=== PATIENT | male | born 1940 | race Caucasian/White ===

== ENCOUNTER 2016-10-27 07:00 | Inpatient (IN) ==
--- NOTE | 2016-10-24 09:37 | Cardiothoracic History & Phys ---
History of Present Illness Chief complaint: Chest pain History of present illness: Mr. Urias is a 76 year old male who came to Dr. Demarco because of symptoms of chest discomfort and shortness of breath associated with nausea and diaphoresis. The patient does have a prior history of myocardial infarction in the remote past but had not had any recurrent chest pain until this past week. He was admitted for outpatient catheterization which demonstrated severe coronary disease and he was referred for bypass surgery. He is to be admitted for that purpose on 10/27/2016 for coronary bypass surgery on 10/28/2016. Past medical history: Patient has had previous prostate surgery and does have a history of gastroesophageal reflux symptoms. The patient has never smoked cigarettes and does not drink significant amounts of alcohol. Review of systems and family history are noncontributory to the present illness. Physical examination: Patient is well-developed well-nourished white man in no acute distress. Examination of head eyes ears nose and throat show the pupils are equal react to light and extraocular motions are intact. Oropharynx is benign. Examination of chest shows that it is clear to percussion auscultation. Examination of heart shows regular sinus rhythm and there are no murmurs. Examination the abdomen is soft nontender and there are no masses or organomegaly. Examination of the extremities shows no cyanosis or edema. Neurological examination is grossly within normal limits. Assessment: Coronary artery disease. Plan: Coronary bypass grafting 10/28/2016. Home Medications Medication Instructions Recorded Confirmed Type Tramadol HCl [Tramadol Tab] 50 mg PO QID PRN 07/20/16 10/13/16 History amLODIPine [Norvasc] 10 mg PO DAILY 07/20/16 10/13/16 History Aspirin 325 mg PO AC BREAKFAST #100 tablet 10/13/16 Rx Allergies Allergy/AdvReac Type Severity Reaction Status Date / Time No Known Allergies Allergy Verified 10/13/16 09:45 Medical,Surgical,& Family Hx - Medical History Cardio: History of: CAD, Hypertension, [place] Neurology: No history of: Seizures Genitourinary: History of: Genitourinary Cancer (prostate) - Surgical History Reproductive Surgeries: Surgical HX of;: Prostate Surgery - Social History Smoking Status: Former smoker
[~2016-10-27 07:00] MED LIST: DEXTROSE 50% 25 GM/50 ML SYRINGE IV PRN; DEXTROSE 50% 25 GM/50 ML VIAL IV PRN; GLUCAGON 1 MG VIAL IM PRN; traMADol 50 MG TABLET PO PRN
--- NOTE | 2016-10-27 09:34 | EKG Report ---
Stationary ECG Study [facility] Test Date: 10/27/2016 9:25:22 AM Pat Name: HELLEN LION Department: Room: 275 Gender: M Tread Cutter: IVONNE : 1940 Requested by: Brad Navarrete Order Number: [id number] Jaimie MD: KEILY HOYT Intervals [place] Rate: 58 P: 64 GA: 187 QRS: -26 QRSD: 85 T: 56 QT: 401 QTc: 397 Interpretive Statements SINUS RHYTHM LEFT AXIS DEVIATION POSSIBLE RIGHT VENTRICULAR CONDUCTION DELAY Electronically Signed On 10-28-16 07:33:00 CDT by KEILY HOYT [email or web address]
[2016-10-27 09:52] LABS: Basophils # 0.1 10*3/uL (0.0-0.2); Basophils % 1.2 % (0.0-0.8); Eosinophils # 0.6 10*3/uL (0.0-0.87); Eosinophils % 8.5 % (0.00-10.9); Hematocrit 37.5 VOL% (42.0-52.0); Hemoglobin 12.9 GM/DL (14.0-18.0); Immature Granulocytes % 0.3 %; Immature Granulocytes Absolute 0.02 #; Lymphocytes # 1.6 10*3/uL (1.4-4.0); Lymphocytes % 21.8 % (21.2-54.2); Mean Corpuscular HGB Conc 34.4 GM/DL (32-36); Mean Corpuscular Hemoglobin 31 PG (27-34); Mean Corpuscular Volume 91.2 FL (87-102); Monocytes # 0.8 10*3/uL (0.11-0.8); Monocytes % 11.2 % (1.7-12.7); Neutrophils # 4.2 10*3/uL (1.4-7.4); Platelet Count 210 T/CUMM (130-400); Red Blood Count 4.11 MC/CUMM (3.8-5.5); Red Cell Distribution Width 14.7 % (9.3-17.3); White Blood Count 7.4 T/CUMM (4-12)
[2016-10-27 10:31] LABS: Albumin 3.8 G/DL (3.4-5.0); Calcium 9.5 MG/DL (8.5-10.1); Osmolality,Calculated 293.4 MOS/KG (273-304); Potassium 4.6 MMOL/L (3.5-5.1); Total Protein 6.7 G/DL (6.4-8.3)
[2016-10-27] MEDS: SODIUM CHLORIDE 0.9% 1,000 ML IV SCH (11:52)
[2016-10-27] MEDS: CHLORHEXIDINE 0.12% ORAL RINSE 60 ML BOTTLE SWISH/SPIT SCH ×2 (11:53→20:40)
[2016-10-27] MEDS: amLODIPine 10 MG TABLET PO SCH ×2 (11:54→11:55)
[2016-10-27] MEDS: ASPIRIN 325 MG TABLET PO SCH ×2 (11:54→11:55)
--- NOTE | 2016-10-27 12:47 | XRay Report ---
XR chest 2V Indication: Coronary artery disease Comparison: 13 October 2016 Findings: The heart and mediastinum are normal in size and configuration. The pulmonary vascularity is normal in caliber. Lung volumes are increased with prominent bronchial markings. No lung infiltrates, effusions, pneumothorax or other abnormality is demonstrated. Impression: Chronic lung changes. No acute process or significant change. PROCEDURE INTERPRETED AT [facility] DEPARTMENT OF RADIOLOGY Final Report Signed by: Dr. Julio César Mathis
[2016-10-27] MEDS ORDERED: ZALEPLON 5 MG CAPSULE PO PRN (15:34)
[2016-10-27] MEDS: CHLORHEXIDINE 4% SOLN 118 ML BOTTLE TOP SCH ×2 (16:12→20:42)
--- NOTE | 2016-10-27 17:48 | Sleep Medicine Consult ---
Assessment and Plan (1) Unspecified sleep apnea Status: Acute Assessment and plan: This patient does have symptoms concerning for sleep apnea. He is going to be undergoing preop scrub tonight for surgery tomorrow. It will likely be a few days postop before he will be a candidate for in-hospital sleep test with HST. If not done, he can be set up for in lab polysomnography after discharge. He did not sound very interested in proceeding with sleep evaluation. I did present potential benefits of evaluation and treatment with the hope to prevent further cardiac events in the future and decrease risk for complications postoperatively. Current Visit: Yes (2) Coronary artery disease Status: Acute Assessment and plan: I reviewed the Baron data from Lancet 2004 with the patient to their understanding. This study proved significant reduction in the risk of fatal and nonfatal cardiac events in patients with severe obstructive sleep apnea compliant with CPAP, in comparison with those noncompliant with CPAP for severe sleep apnea. Current Visit: Yes (3) Hypertension Status: Acute Assessment and plan: The prevalence rate for obstructive sleep apnea patients with hypertension is 35 %. That rate can be as high as 80% in patients who require 4 or more medications for blood pressure control. Current Visit: Yes History of Present Illness Chief complaint: Sleep apnea History of present illness: Mr. Urias is a 76 year old male admitted with a history of dyspnea on exertion and exercise intolerance of recent onset. He was found to have multivessel coronary artery disease and was admitted for bypass surgery tomorrow. He screened is high risk for sleep apnea. He does have a history of loud snoring and abnormal breathing during sleep with witnessed apneas according to his . He has difficulty maintaining sleep and awakens 3-4 times a night to urinate. He does have symptoms of fatigue and sleepiness during the day. He has been told by multiple physicians including Dr. Rosario, Dr. Demarco, and Dr. Lechuga that he needed sleep evaluation but he has declined in the past. Home Medications Medication Instructions Recorded Confirmed Type amLODIPine [Norvasc] 10 mg PO DAILY 07/20/16 10/27/16 History Aspirin 325 mg PO AC BREAKFAST #100 tablet 10/13/16 10/27/16 Rx Carvedilol 3.125 mg PO BID 10/27/16 10/27/16 History Furosemide Tab [Lasix Tab] 20 mg PO DAILY 10/27/16 10/27/16 History Minoxidil 2.5 mg PO DAILY PRN 10/27/16 10/27/16 History Nitroglycerin [Nitroglycerin SL 1 tablet SL DIRECTED PRN 10/27/16 10/27/16 History Tab] Allergies Allergy/AdvReac Type Severity Reaction Status Date / Time No Known Allergies Allergy Verified 10/13/16 09:45 Review of systems: Otherwise unremarkable from a sleep medicine standpoint. Exam (Pulmonay) H&P - Constitutional Vitals: Period Temp Pulse Resp BP Sys/Parsons Pulse Ox Last 24 Hr 97.7 F-98.2 F 63-108 18-18 115-123/63-70 94-99 Exam: He is alert and responsive in no acute distress. Pupils equal round reactive to light and accommodation. Extraocular movements intact. Oropharynx with a class III Mallampati exam. Neck supple without adenopathy or thyromegaly. No supraclavicular adenopathy is noted. Chest with symmetrical breath sounds without focal wheeze, rhonchi, or rales. Cardiac exam reveals a regular rhythm without murmur or gallop. Abdomen soft nontender without palpable hepatosplenomegaly or mass. Extremities are without clubbing, cyanosis, or edema. Neurologically, he is grossly intact. He moves all extremities with good strength and ambulates with a normal gait. Medical,Surgical,& Family Hx - Medical History Cardio: History of: CAD, Hypertension, [place] Neurology: No history of: Seizures Genitourinary: History of: Genitourinary Cancer (prostate) - Surgical History Cardiac Surgeries: Sugical HX of: Cardiac Catheterization Reproductive Surgeries: Surgical HX of;: Prostate Surgery - Family History Family History: Reports;: Family Heart Disease, Family Hypertension - Social History Smoking Status: Former smoker Frequency of Alcohol Use: None Type of Drug Use: None Results - Labs CBC & BMP: 10/27/16 09:21 10/27/16 09:21 Lab Results: I have reviewed the past 24 hour labs Quality Measures - VTE Contraindication to Pharmacological VTE Prophylaxis: High Risk of Bleeding
[2016-10-27 18:06] LABS: ABG Base Excess -1.5 MMOL/L (-2.5-2.5); ABG HCO3 22.9 MMOL/L (20-26); ABG Oxygen Saturation 95.2 % (95-100); ABG PCO2 37.8 MM HG (35-48); ABG PO2 76.8 MM HG (80-95); Allen Test Positive
[2016-10-28] MEDS ORDERED: PAPAVERINE 60 MG/2 ML VIAL ONE (04:38)
[2016-10-28] MEDS ORDERED: VANCOMYCIN 1,000 MG VIAL ONE ×2 (04:39→08:14)
[2016-10-28] MEDS ORDERED: CEFUROXIME INJ 1,500 MG in SODIUM CHLORIDE 0.9% 100 ML IV ONE (05:00)
[2016-10-28 05:11] LABS: PT Patient Result 10.9 SECS; Partial Thromboplastin Time 27.3 SECS (0-40)
[2016-10-28 05:23] LABS: Calcium 8.9 MG/DL (8.5-10.1); Magnesium 2.4 MG/DL (1.8-2.4); Osmolality,Calculated 297.1 MOS/KG (273-304); Potassium 4.2 MMOL/L (3.5-5.1)
[2016-10-28] MEDS: CHLORHEXIDINE 4% SOLN 118 ML BOTTLE TOP SCH ×2 (05:30→11:57)
[2016-10-28] MEDS: amLODIPine 10 MG TABLET PO SCH ×2 (05:30→11:58)
[2016-10-28] MEDS ORDERED: LORazepam 1 MG TABLET PO ONE (05:30)
[2016-10-28] MEDS ORDERED: FAMOTIDINE 20 MG TABLET PO ONE (05:30)
[2016-10-28] MEDS: CHLORHEXIDINE 0.12% ORAL RINSE 60 ML BOTTLE SWISH/SPIT SCH ×3 (05:30→21:26)
[2016-10-28] MEDS ORDERED: PHENYLEPHRINE 1 MG/10 ML SYRINGE IV ONE (06:40)
[2016-10-28] MEDS ORDERED: VECURONIUM 10 MG VIAL IV ONE (06:40)
[2016-10-28] MEDS ORDERED: ETOMIDATE 20 MG/10 ML VIAL IV ONE (06:40)
[2016-10-28] MEDS ORDERED: ESMOLOL 100 MG/10 ML VIAL IV ONE (06:40)
[2016-10-28] MEDS ORDERED: LIDOCAINE 2% 5 ML VIAL ONE (06:40)
[2016-10-28] MEDS ORDERED: CALCIUM CHLORIDE 1,000 MG/10 ML SYRINGE IV ONE ×2 (06:40→07:37)
[2016-10-28] MEDS ORDERED: PHENYLEPHRINE DRIP 40 MG/250 ML PREMIX IV ONE (07:36)
[2016-10-28] MEDS ORDERED: NITROPRUSSIDE 50 MG/2 ML VIAL ONE (07:36)
[2016-10-28] MEDS ORDERED: POTASSIUM CHLORIDE RIDER 100 ML IV ONE (07:37)
[2016-10-28 07:57] LABS: ABG Base Excess -1.4 MMOL/L (-2.5-2.5); ABG HCO3 23.3 MMOL/L (20-26); ABG Oxygen Saturation 99.1 % (95-100); ABG PCO2 34.6 MM HG (35-48); ABG PH 7.422 (7.35-7.45); ABG TCO2 20.3 MMOL/L (23-27); Glucose Heart Surgery 119 MG/DL (74-106); Hematocrit Heart Surgery 33.1 PERCENT (42-52); Hemoglobin Heart Surgery 10.7 G/DL (14.0-18.0); Ionized Calcium Arterial 1.18 MMOL/L (1.21-1.46); PCO2 Patient Temp Arterial 34.6 MMHG; PH Patient Temp Arterial 7.422; Patient Temperature 37 CELCIUS; Potassium Heart/CVR 4.1 MMOL/L (3.5-5.1); Sodium Heart/CVR 139 MMOL/L (135-145)
[2016-10-28] MEDS: ASPIRIN 325 MG TABLET PO SCH (08:33)
[2016-10-28 08:44] LABS: Apearance,Urine CLEAR (Clear); Bilirubin,Urine Negative (Negative); Blood, Urine Negative (Negative); Glucose,Urine (UA) 50 mg/dL (Negative); Ketones,Urine Negative (Negative); Mucus,Urine Occasional /LPF (Occasional); Nitrite,Urine Negative (Negative); Protein,Urine Negative; RBC,Urine 1 /HPF (0-4); Urine Color Yellow (Yellow); Urine Specific Gravity 1.012 (1.001-1.035); Urine Urobilinogen < 2.0 EU/DL (0.2-1.0); WBC,Urine <1 /HPF (0-6)
[2016-10-28 09:13] LABS: Hematocrit Heart Surgery 22.8 PERCENT (42-52); Hemoglobin Heart Surgery 7.3 G/DL (14.0-18.0); PCO2 Patient Temp Venous 32.7 MM HG; PH Patient Temp Venous 7.444; PO2 Patient Temp Venous 38.1 MM HG; Potassium Heart/CVR 4.8 MMOL/L (3.5-5.1); VBG Base Excess -1.1 MEQ/L (0-4); VBG HCO3 23.3 MEQ/L (24-28); VBG PCO2 37.8 MMHG (41-51); VBG PH 7.4; VBG PO2 46.7 MMHG (17-40)
[2016-10-28 10:04] LABS: PCO2 Patient Temp Venous 35.8 MM HG; PH Patient Temp Venous 7.411; Potassium Heart/CVR 5.2 MMOL/L (3.5-5.1); VBG Base Excess -2.2 MEQ/L (0-4); VBG HCO3 22.4 MEQ/L (24-28); VBG Oxygen Saturation 73.2 %; VBG PCO2 37.4 MMHG (41-51); VBG PH 7.396; VBG PO2 36.5 MMHG (17-40)
[2016-10-28 10:40] LABS: ABG Base Excess -1.9 MMOL/L (-2.5-2.5); ABG HCO3 22.3 MMOL/L (20-26); ABG PCO2 35.4 MM HG (35-48); ABG PH 7.417 (7.35-7.45); ABG TCO2 23.4 MMOL/L (23-27); Glucose Heart Surgery 198 MG/DL (74-106); Hemoglobin Heart Surgery 8.5 G/DL (14.0-18.0); Ionized Calcium Arterial 1.16 MMOL/L (1.21-1.46); PCO2 Patient Temp Arterial 35.4 MMHG; PH Patient Temp Arterial 7.417; Patient Temperature 37 CELCIUS; Potassium Heart/CVR 4.4 MMOL/L (3.5-5.1); Sodium Heart/CVR 131 MMOL/L (135-145)
[2016-10-28] MEDS ORDERED: DEXTROSE 5% KCL 20 MEQ 20 MEQ/1,000 ML BAG IV ONE (10:44)
[2016-10-28] MEDS ORDERED: PHENYLEPHRINE DRIP 20 MG/250 ML PREMIX IV ONE (10:44)
[2016-10-28] MEDS ORDERED: SODIUM BICARBONATE 50 MEQ/50 ML SYRINGE IV ONE (10:44)
[2016-10-28] MEDS ORDERED: ALBUMIN 25% 25 GM/100 ML VIAL IV ONE (10:44)
[2016-10-28] MEDS ORDERED: FUROSEMIDE 20 MG/2 ML VIAL ONE (10:45)
[2016-10-28] MEDS ORDERED: MANNITOL 12.5 GM/50 ML VIAL IV ONE (10:45)
[2016-10-28] MEDS ORDERED: HEPARIN 10,000 UNIT/10 ML VIAL ONE (10:45)
[2016-10-28] MEDS ORDERED: methylPREDNISolone SOD SUC 1,000 MG/8 ML VIAL ONE (10:45)
[2016-10-28] MEDS ORDERED: MAGNESIUM SULFATE 1 GM/2 ML VIAL ONE (10:45)
[2016-10-28] MEDS ORDERED: PROTAMINE SULFATE 50 MG/5 ML VIAL IV ONE ×3 (10:45→11:36)
[2016-10-28] MEDS ORDERED: PROTAMINE SULFATE 250 MG/25 ML VIAL IV ONE (10:45)
--- NOTE | 2016-10-28 11:24 | Operative Note ---
Date of procedure: 10/28/16 Pre-op diagnosis: Coronary artery disease Post-op diagnosis: same Procedure: Procedure: Coronary bypass grafting 3 with a left internal mammary graft to the anterior descending coronary artery and saphenous vein grafts to the intermediate and obtuse marginal coronary arteries. Findings: Patient is a 76-year-old man with substernal chest discomfort who underwent cardiac catheterization demonstrating three-vessel coronary disease. At the time of surgery left ventricular function was noted to be essentially normal and grafts were placed to the ramus intermedius and the distal obtuse marginal coronary arteries using saphenous vein grafts and left internal mammary graft to the anterior descending coronary artery. Distal vessels were of adequate size and free of disease at the site of anastomosis. Patient tolerated procedure well was returned to recovery in satisfactory condition. Procedure: Patient brought to the operating room placed on the operating table in supine position. After satisfactory induction of general anesthesia the chest abdomen and legs were prepped and draped in sterile fashion. Greater saphenous vein was harvested from the left lower leg and prepared is an arterial graft. Incision in the leg was closed with 3-0 subcutaneous Monocryl and 3-0 subcuticular Monocryl. A standard sternotomy incision was made and carried down to the level of the sternum which was divided and the heart was suspended in a pericardial cradle. Left internal mammary artery was dissected free from its position in the anterior chest wall and prepared as an arterial graft. Patient was prepared for cardiopulmonary bypass with systemic heparinization and cannulation of the ascending aorta and right atrium. Cardiopulmonary bypass was begun and aorta was crossclamped and the heart arrested with cardioplegia solution injected into the aortic root. Heart was protected during the period of crossclamping with topical saline slush. Distal anastomoses were constructed as noted above and when these were complete the aorta cross-clamp was removed reestablishing cardiac action. Proximal anastomoses were constructed between the inflow ends of the saphenous vein graft and the ascending aorta. Once this was complete the patient was weaned from cardiopulmonary bypass without difficulty and heparin effect reversed with protamine. Decannulation carried out with a defects in the ascending aorta and right atrium being closed with 3-0 Prolene. Operative field was inspected for hemostasis and this was considered adequate the incision was closed with interrupted stainless steel wire and the sternum 0 Monopril in the presternal fascia and 3-0 subcuticular Monocryl. 2 chest tubes were left in the anterior mediastinum and brought out through separate stab incisions. Patient was returned to recovery in satisfactory condition. Anesthesia: KATHI Surgeon / Physician: Brad Gómez Estimated blood loss: other (Unable to determine because of cardiopulmonary bypass) Condition: stable Disposition: ICU Results - Labs CBC & BMP: 10/28/16 10:40 10/28/16 04:25 Discharge Plan - Discharge Medications No Action amLODIPine [Norvasc] 10 mg PO DAILY Aspirin 325 mg PO AC BREAKFAST #100 tablet Carvedilol 3.125 mg PO BID Nitroglycerin [Nitroglycerin SL Tab] 1 tablet SL DIRECTED PRN PRN Reason: Chest Pain Minoxidil 2.5 mg PO DAILY PRN PRN Reason: Hypertension Furosemide Tab [Lasix Tab] 20 mg PO DAILY - Follow Up or Referral - Forms/Instructions
[2016-10-28] MEDS ORDERED: DEXTROSE 50% 25 GM/50 ML SYRINGE IV PRN ×2 (11:30)
[2016-10-28] MEDS ORDERED: ACETAMINOPHEN 650 MG SUPP RECTAL PRN (11:30)
[2016-10-28] MEDS ORDERED: INSULIN REGULAR 100 UNIT/ML IV ONE (11:30)
[2016-10-28] MEDS ORDERED: LACTATED RINGERS 250 ML IV PRN (11:30)
[2016-10-28] MEDS ORDERED: POTASSIUM CHLORIDE RIDER 10 MEQ in PREMIX 1 EACH IV PRN (11:30)
[2016-10-28] MEDS ORDERED: MAGNESIUM SULF RIDER 4 GM in PREMIX 1 EACH IV PRN (11:30)
[2016-10-28] MEDS ORDERED: SODIUM CHLORIDE 0.45% 1,000 ML IV SCH ×2 (11:30)
[2016-10-28] MEDS ORDERED: PHENYLEPHRINE DRIP 40 MG/250 ML PREMIX IV PRN (11:30)
[2016-10-28] MEDS ORDERED: CALCIUM CHLORIDE 1,000 MG/10 ML SYRINGE IV PRN (11:30)
[2016-10-28] MEDS ORDERED: MAGNESIUM SULF RIDER 2 GM in PREMIX 1 EACH IV PRN (11:30)
[2016-10-28] MEDS ORDERED: MIDAZOLAM 2 MG/2 ML VIAL IV PRN (11:30)
[2016-10-28] MEDS ORDERED: INSULIN REGULAR 100 UNIT/ML IV PRN (11:30)
[2016-10-28] MEDS ORDERED: NITROPRUSSIDE 100 MG in DEXTROSE 5% 250 ML IV PRN (11:30)
[2016-10-28] MEDS ORDERED: POTASSIUM CHLORIDE RIDER 20 MEQ in PREMIX 1 EACH IV PRN (11:30)
[2016-10-28] MEDS ORDERED: MORPHINE 10 MG/1 ML VIAL IV PRN (11:30)
[2016-10-28] MEDS ORDERED: INSULIN REGULAR DRIP 100 ML IV SCH (11:30)
[2016-10-28] MEDS ORDERED: VECURONIUM 10 MG VIAL IV PRN ×2 (11:30)
[2016-10-28] MEDS ORDERED: MIDAZOLAM 10 MG/2 ML VIAL IV PRN (11:30)
[2016-10-28] MEDS ORDERED: FUROSEMIDE 40 MG/4 ML VIAL ONE (11:32)
[2016-10-28 11:35] LABS: Basophils # 0.1 10*3/uL (0.0-0.2); Basophils % 0.5 % (0.0-0.8); Eosinophils # 0.3 10*3/uL (0.0-0.87); Eosinophils % 2.4 % (0.00-10.9); Hematocrit 28.7 VOL% (42.0-52.0); Immature Granulocytes % 0.9 %; Immature Granulocytes Absolute 0.11 #; Lymphocytes # 1.4 10*3/uL (1.4-4.0); Lymphocytes % 11.3 % (21.2-54.2); Mean Corpuscular HGB Conc 35.2 GM/DL (32-36); Mean Corpuscular Hemoglobin 32 PG (27-34); Mean Corpuscular Volume 89.7 FL (87-102); Mean Platelet Volume 11.8 FL (9.6-12.0); Monocytes # 0.8 10*3/uL (0.11-0.8); Monocytes % 6.5 % (1.7-12.7); Neutrophils # 9.9 10*3/uL (1.4-7.4); Neutrophils % 78.4 % (38.7-73.9); Red Cell Distribution Width 14.4 % (9.3-17.3)
[2016-10-28 11:35] LABS: ABG Base Excess -1.4 MMOL/L (-2.5-2.5); ABG HCO3 23.2 MMOL/L (20-26); ABG Oxygen Saturation 97.3 % (95-100); ABG PCO2 38.7 MM HG (35-48); ABG PH 7.396 (7.35-7.45); ABG PO2 105.1 MM HG (80-95); ABG TCO2 24.4 MMOL/L (23-27); Glucose Heart Surgery 183 MG/DL (74-106); Hemoglobin Heart Surgery 10.7 G/DL (14.0-18.0); Potassium Heart/CVR 4.1 MMOL/L (3.5-5.1)
[2016-10-28] MEDS ORDERED: FUROSEMIDE 40 MG/4 ML VIAL IV ONE (11:35)
[2016-10-28] MEDS ORDERED: SEVOFLURANE 1 UNIT/15 MINUTE INH ONE (11:40)
[2016-10-28 11:41] LABS: Hemoglobin 10.1 GM/DL (14.0-18.0); Platelet Count 157 T/CUMM (130-400); White Blood Count 12.7 T/CUMM (4-12)
[2016-10-28] MEDS ORDERED: SODIUM CHLORIDE 0.9% 2,000 ML IV ONE (11:41)
[2016-10-28] MEDS ORDERED: LACTATED RINGERS 2,000 ML IV ONE (11:41)
[2016-10-28] MEDS ORDERED: ePHEDrine 50 MG/ML AMP ONE (11:41)
[2016-10-28] MEDS ORDERED: SODIUM CHLORIDE 0.9% 250 ML IV ONE (11:41)
[2016-10-28] MEDS ORDERED: SUFentanil 250 MCG/5 ML AMP ONE (11:41)
[2016-10-28 11:53] LABS: INR 1.2; PT Patient Result 13.1 SECS; Partial Thromboplastin Time 33.1 SECS (0-40)
[2016-10-28] MEDS: SODIUM CHLORIDE 0.9% 1,000 ML IV SCH (11:58)
[2016-10-28 12:20] LABS: Bilirubin,Total 1.4 MG/DL (0.2-1.0); Calcium 8.4 MG/DL (8.5-10.1); Magnesium 2.3 MG/DL (1.8-2.4); Osmolality,Calculated 292.7 MOS/KG (273-304); Potassium 4.2 MMOL/L (3.5-5.1); Total Protein 4.9 G/DL (6.4-8.3)
[2016-10-28 12:27] LABS: CKMB % 9.7 %
[2016-10-28 12:29] LABS: Troponin I Only 4.26 NG/ML (0.00-0.045)
--- NOTE | 2016-10-28 13:05 | XRay Report ---
XR chest 1V portable Indication: Line placement. Chest one view: Since yesterday, patient has undergone median sternotomy. Endotracheal tube terminates 4 cm cephalad the ximena. NG tube courses off lower edge of the image. Thendara-Gabriel catheter tip over the right lower lobe pulmonary artery. Left IJ central line tip at the RA/SVC junction. Right basilar chest tubes and mediastinal drains are present. Heart size remains normal. Lungs are hypoinflated. There is atelectasis retrocardiac left lower lobe. Impression: Lines and tubes as described. Pulmonary hypoinflation. Progressive atelectasis left lung base. PROCEDURE INTERPRETED AT [facility] DEPARTMENT OF RADIOLOGY Final Report Signed by: Sam Arnold M.D.
[2016-10-28] MEDS: ALBUMIN 5% 12.5 GM in PREMIX 1 EACH IV PRN ×4 (13:52→18:48)
[2016-10-28 13:57] LABS: ABG Base Excess -1.7 MMOL/L (-2.5-2.5); ABG HCO3 22.2 MMOL/L (20-26); ABG Oxygen Saturation 97.3 % (95-100); ABG PCO2 34.9 MM HG (35-48); ABG PH 7.422 (7.35-7.45); ABG PO2 100.7 MM HG (80-95); ABG TCO2 23.3 MMOL/L (23-27); Glucose Heart Surgery 117 MG/DL (74-106); Hemoglobin Heart Surgery 12.4 G/DL (14.0-18.0); Potassium Heart/CVR 3.7 MMOL/L (3.5-5.1)
[2016-10-28] MEDS ORDERED: LACTATED RINGERS 1,000 ML IV ONE (14:25)
--- NOTE | 2016-10-28 14:58 | Cardiology Consult Note ---
<Jadyn Tillman - Last Filed: 10/28/16 14:49> Assessment and Plan - Time spent with patient Time spent with patient: Greater than 30 minutes (1) Renal insufficiency Status: Chronic Assessment and plan: SEE PLAN OF CARE LISTED BELOW Current Visit: No (2) Hypercholesterolemia Status: Chronic Assessment and plan: SEE PLAN OF CARE LISTED BELOW Current Visit: No (3) Coronary artery disease Status: Chronic Assessment and plan: SEE PLAN OF CARE LISTED BELOW Current Visit: Yes (4) Hypertension Status: Chronic Assessment and plan: SEE PLAN OF CARE LISTED BELOW Current Visit: Yes History of Present Illness - Data of Consult Patient: known to practice within the last 3 years Consult date: 10/28/16 Requesting Physician: Brad Gómez - Consult Narrative Reason for consult: CAD History of present illness: BREAD DISTRIBUTOR: DR. DEMARCO Mr. Urias, 76WM, routinely followed by Dr. Demarco. Risk factors include : Known coronary artery disease, hypertension, dyslipidemia, obesity, sedentary lifestyle. October 13, 2016 underwent elective LHC or severe CAD was noted. Echo October 14, 2016: EF 65%, grade 1 diastolic dysfunction, mild concentric LVH , PAP 24 mmHg assuming RAP 5 mmHg. Patient underwent elective patient CABG this morning, performed by Dr. Gómez, noting the following: CABG 3 (HOLLEY - LAD , SVG - RI, SVG - OM). Patient is returned to the recovery unit. He remains extubated and on low-dose pressors. Chest tube output appears stable. No arrhythmia noted at this time. I will further discuss with Dr. Ibarra and await additional recommendations. ASSESSMENT/PLAN: 1. CAD S/P CABG (HOLLEY - LAD, SVG - RI, SVG - OM) - status post revascularization. Aspirin, beta-[place] when able 2. HISTORY OF HYPERTENSION - adjust medications accordingly during hospital stay 3. DYSLIPIDEMIA - statin when able. 4. CKD, STAGE III - avoiding nephrotoxic agents CC: Brad Gómez MD - Home Medications and Allergies Home Medications: Home Medications Medication Instructions Recorded Confirmed Type amLODIPine [Norvasc] 10 mg PO DAILY 07/20/16 10/27/16 History Aspirin 325 mg PO AC BREAKFAST #100 tablet 10/13/16 10/27/16 Rx Carvedilol 3.125 mg PO BID 10/27/16 10/27/16 History Furosemide Tab [Lasix Tab] 20 mg PO DAILY 10/27/16 10/27/16 History Minoxidil 2.5 mg PO DAILY PRN 10/27/16 10/27/16 History Nitroglycerin [Nitroglycerin SL 1 tablet SL DIRECTED PRN 10/27/16 10/27/16 History Tab] Allergies/Adverse Reactions: Allergies Allergy/AdvReac Type Severity Reaction Status Date / Time No Known Allergies Allergy Verified 10/13/16 09:45 ROS unobtainable: due to endotracheal tube Medical,Surgical,& Family Hx - Medical History Cardio: History of: CAD, Hypertension, [place] Neurology: No history of: Seizures Genitourinary: History of: Genitourinary Cancer (prostate) - Surgical History Cardiac Surgeries: Sugical HX of: Cardiac Catheterization Reproductive Surgeries: Surgical HX of;: Prostate Surgery - Family History Family History: Reports;: Family Heart Disease, Family Hypertension - Social History Smoking Status: Former smoker Have you smoked in the last 12 months: No Frequency of Alcohol Use: None Type of Drug Use: None Physical Examination Vital Signs Temp Pulse Resp BP Pulse Ox 97.9 F 63 18 123/63 98 10/27/16 08:50 10/27/16 08:50 10/27/16 08:50 10/27/16 08:50 10/27/16 08:50 Exam: General: [Intubated, appears comfortable. Sedated HEENT: [Normocephalic, atraumatic. Mucous membranes moist. No jaundice noted. Conjunctiva moist and clear, sclerae anicteric] Neck: Unable to assess for JVD due to habitus. No thyromegaly or lymphadenopathy noted. No carotid bruit appreciated Cardiac: [Regular rate and rhythm.] [Friction rub appreciated. Chest tubes intact with minimal serosanguineous output. Lungs: [Clear to auscultation without accessory muscle use to assist the respiratory pattern.] Intubated. Abdomen: Soft, bowel sounds normoactive. No abdominal bruit or thrill noted. No masses noted. Musculoskeletal: No fluid collection. Decreased range of motion is noted. Extremities: No clubbing, cyanosis noted. [ No edema noted.] Upper extremity pulses 2+. Lower extremity pulses 2+. Capillary refill less than 3 seconds. Skin: No unusual lesions or rashes. No skin breakdown appreciated. Neuro: No essential tremor is appreciated. Unable to further assess neuro status due to sedation Result/EKG - Labs CBC & BMP: 10/28/16 11:17 10/28/16 11:24 Lab Results: I have reviewed the past 24 hour labs Labs: Laboratory Results - last 24 hr 10/27/16 10/27/16 10/28/16 09:21 17:50 04:25 WBC RBC Hgb Hct MCV MCH MCHC RDW Plt Count MPV Neut % (Auto) Lymph % (Auto) [place] % (Auto) Eos % (Auto) Baso % (Auto) Neut # (Auto) Lymph # (Auto) [place] # (Auto) Eos # (Auto) Baso # (Auto) Immature Gran % Nucleated RBC % Immature Gran # Nucleated RBCs # Immature Plt Fraction INR 1.0 PT Patient/Control Mix 10.9 Circ Anticoag PTT 27.3 Patient Temperature ABG pH 7.400 ABG pH at Pt Temp ABG pCO2 37.8 ABG pCO2 at Pt Temp ABG pO2 76.8 L ABG pO2 at Pt Temp ABG HCO3 22.9 ABG Total CO2 24.0 ABG O2 Saturation 95.2 ABG Base Excess -1.5 ABG Sodium VBG pH VBG pCO2 VBG pO2 VBG HCO3 VBG Total CO2 VBG O2 Saturation VBG Base Excess Hemoglobin Hematocrit Ionized Calcium FiO2 21.00 Sodium Potassium Chloride Carbon Dioxide Anion Gap BUN Creatinine GFR Calculation BUN/Creatinine Ratio Glucose POC Glucose Calculated Osmolality Calcium Venous Ioniz Calcium Magnesium Total Bilirubin AST ALT Alkaline Phosphatase Total Creatine Kinase CK-MB (CK-2) CK and CKMB Interp Troponin I Total Protein Albumin Globulin Albumin/Globulin Ratio Urine Color Urine Appearance Urine pH Ur Specific [place] Urine Protein Urine Glucose (UA) Urine Ketones Urine Blood Urine Nitrate Urine Bilirubin Urine Urobilinogen Urine Leukocytes Urine RBC Urine WBC Urine Mucus Ur Culture Indicated? Blood Type O NEGATIVE Antibody Screen Negative Crossmatch See Detail 10/28/16 10/28/16 10/28/16 04:25 04:34 07:12 WBC RBC Hgb Hct MCV MCH MCHC RDW Plt Count MPV Neut % (Auto) Lymph % (Auto) [place] % (Auto) Eos % (Auto) Baso % (Auto) Neut # (Auto) Lymph # (Auto) [place] # (Auto) Eos # (Auto) Baso # (Auto) Immature Gran % Nucleated RBC % Immature Gran # Nucleated RBCs # Immature Plt Fraction INR PT Patient/Control Mix Circ Anticoag PTT Patient Temperature ABG pH ABG pH at Pt Temp ABG pCO2 ABG pCO2 at Pt Temp ABG pO2 ABG pO2 at Pt Temp ABG HCO3 ABG Total CO2 ABG O2 Saturation ABG Base Excess ABG Sodium VBG pH VBG pCO2 VBG pO2 VBG HCO3 VBG Total CO2 VBG O2 Saturation VBG Base Excess Hemoglobin Hematocrit Ionized Calcium FiO2 Sodium 142 Potassium 4.2 Chloride 108 H Carbon Dioxide 27 Anion Gap 11.2 BUN 54 H Creatinine 2.60 H GFR Calculation 27 BUN/Creatinine Ratio 20.00 Glucose 106 POC Glucose 116 H Calculated Osmolality 297.1 Calcium 8.9 Venous Ioniz Calcium Magnesium 2.4 Total Bilirubin AST ALT Alkaline Phosphatase Total Creatine Kinase CK-MB (CK-2) CK and CKMB Interp Troponin I Total Protein Albumin Globulin Albumin/Globulin Ratio Urine Color Yellow Urine Appearance Clear Urine pH 6.0 Ur Specific [place] 1.012 Urine Protein Negative Urine Glucose (UA) 50 Urine Ketones Negative Urine Blood Negative Urine Nitrate Negative Urine Bilirubin Negative Urine Urobilinogen < 2.0 H Urine Leukocytes Negative Urine RBC 1 Urine WBC <1 Urine Mucus Occasional Ur Culture Indicated? Not indicated Blood Type Antibody Screen Crossmatch 10/28/16 10/28/16 10/28/16 07:56 07:56 09:10 WBC RBC Hgb Hct MCV MCH MCHC RDW Plt Count 138 D MPV Neut % (Auto) Lymph % (Auto) [place] % (Auto) Eos % (Auto) Baso % (Auto) Neut # (Auto) Lymph # (Auto) [place] # (Auto) Eos # (Auto) Baso # (Auto) Immature Gran % Nucleated RBC % Immature Gran # Nucleated RBCs # Immature Plt Fraction INR PT Patient/Control Mix Circ Anticoag PTT Patient Temperature 37 34 ABG pH 7.422 ABG pH at Pt Temp 7.422 7.444 ABG pCO2 34.6 L ABG pCO2 at Pt Temp 34.6 32.7 ABG pO2 124.0 H ABG pO2 at Pt Temp 124.0 38.1 ABG HCO3 23.3 ABG Total CO2 20.3 L ABG O2 Saturation 99.1 ABG Base Excess -1.4 ABG Sodium 139 130 L VBG pH 7.400 VBG pCO2 37.8 L VBG pO2 46.7 H VBG HCO3 23.3 L VBG Total CO2 22.1 VBG O2 Saturation 82.0 VBG Base Excess -1.1 L Hemoglobin 10.7 L 7.3 L D Hematocrit 33.1 L 22.8 L Ionized Calcium 1.18 L FiO2 80.00 Sodium Potassium 4.1 4.8 Chloride Carbon Dioxide Anion Gap BUN Creatinine GFR Calculation BUN/Creatinine Ratio Glucose 119 H 295 H POC Glucose Calculated Osmolality Calcium Venous Ioniz Calcium 0.98 L Magnesium Total Bilirubin AST ALT Alkaline Phosphatase Total Creatine Kinase CK-MB (CK-2) CK and CKMB Interp Troponin I Total Protein Albumin Globulin Albumin/Globulin Ratio Urine Color Urine Appearance Urine pH Ur Specific [place] Urine Protein Urine Glucose (UA) Urine Ketones Urine Blood Urine Nitrate Urine Bilirubin Urine Urobilinogen Urine Leukocytes Urine RBC Urine WBC Urine Mucus Ur Culture Indicated? Blood Type Antibody Screen Crossmatch 10/28/16 10/28/16 10/28/16 09:55 10:40 10:40 WBC RBC Hgb Hct MCV MCH MCHC RDW Plt Count 82 L D MPV Neut % (Auto) Lymph % (Auto) [place] % (Auto) Eos % (Auto) Baso % (Auto) Neut # (Auto) Lymph # (Auto) [place] # (Auto) Eos # (Auto) Baso # (Auto) Immature Gran % Nucleated RBC % Immature Gran # Nucleated RBCs # Immature Plt Fraction INR PT Patient/Control Mix Circ Anticoag PTT Patient Temperature 36 37 ABG pH 7.417 ABG pH at Pt Temp 7.411 7.417 ABG pCO2 35.4 ABG pCO2 at Pt Temp 35.8 35.4 ABG pO2 166.0 H ABG pO2 at Pt Temp 34.0 166.0 ABG HCO3 22.3 ABG Total CO2 23.4 ABG O2 Saturation 99.0 ABG Base Excess -1.9 ABG Sodium 130 L 131 L VBG pH 7.396 VBG pCO2 37.4 L VBG pO2 36.5 VBG HCO3 22.4 L VBG Total CO2 23.6 VBG O2 Saturation 73.2 VBG Base Excess -2.2 L Hemoglobin 8.0 L 8.5 L Hematocrit 24.0 L 25.0 L Ionized Calcium 1.16 L FiO2 80.00 Sodium Potassium 5.2 H 4.4 Chloride Carbon Dioxide Anion Gap BUN Creatinine GFR Calculation BUN/Creatinine Ratio Glucose 224 H 198 H POC Glucose Calculated Osmolality Calcium Venous Ioniz Calcium 0.99 Magnesium Total Bilirubin AST ALT Alkaline Phosphatase Total Creatine Kinase CK-MB (CK-2) CK and CKMB Interp Troponin I Total Protein Albumin Globulin Albumin/Globulin Ratio Urine Color Urine Appearance Urine pH Ur Specific [place] Urine Protein Urine Glucose (UA) Urine Ketones Urine Blood Urine Nitrate Urine Bilirubin Urine Urobilinogen Urine Leukocytes Urine RBC Urine WBC Urine Mucus Ur Culture Indicated? Blood Type Antibody Screen Crossmatch 10/28/16 10/28/16 10/28/16 11:17 11:17 11:24 WBC 12.7 H D RBC 3.20 L D Hgb 10.1 L D Hct 28.7 L MCV 89.7 MCH 32 MCHC 35.2 RDW 14.4 Plt Count 157 D MPV 11.8 Neut % (Auto) 78.4 H Lymph % (Auto) 11.3 L [place] % (Auto) 6.5 Eos % (Auto) 2.4 Baso % (Auto) 0.5 Neut # (Auto) 9.9 H Lymph # (Auto) 1.4 [place] # (Auto) 0.8 Eos # (Auto) 0.3 Baso # (Auto) 0.1 Immature Gran % 0.9 Nucleated RBC % 0.0 Immature Gran # 0.11 Nucleated RBCs # 0.00 Immature Plt Fraction 0.0 INR 1.2 PT Patient/Control Mix 13.1 D Circ Anticoag PTT 33.1 D Patient Temperature ABG pH ABG pH at Pt Temp ABG pCO2 ABG pCO2 at Pt Temp ABG pO2 ABG pO2 at Pt Temp ABG HCO3 ABG Total CO2 ABG O2 Saturation ABG Base Excess ABG Sodium VBG pH VBG pCO2 VBG pO2 VBG HCO3 VBG Total CO2 VBG O2 Saturation VBG Base Excess Hemoglobin Hematocrit Ionized Calcium FiO2 Sodium 138 Potassium 4.2 Chloride 105 Carbon Dioxide 23 Anion Gap 14.2 BUN 48 H Creatinine 2.40 H GFR Calculation 30 BUN/Creatinine Ratio 20.00 Glucose 185 H POC Glucose Calculated Osmolality 292.7 Calcium 8.4 L Venous Ioniz Calcium Magnesium 2.3 Total Bilirubin 1.40 H AST 23 ALT 16 Alkaline Phosphatase 33 L Total Creatine Kinase CK-MB (CK-2) CK and CKMB Interp Troponin I Total Protein 4.9 L Albumin 3.0 L Globulin 1.9 L Albumin/Globulin Ratio 1.5 Urine Color Urine Appearance Urine pH Ur Specific [place] Urine Protein Urine Glucose (UA) Urine Ketones Urine Blood Urine Nitrate Urine Bilirubin Urine Urobilinogen Urine Leukocytes Urine RBC Urine WBC Urine Mucus Ur Culture Indicated? Blood Type Antibody Screen Crossmatch 10/28/16 10/28/16 10/28/16 11:24 11:25 13:40 WBC RBC Hgb Hct MCV MCH MCHC RDW Plt Count MPV Neut % (Auto) Lymph % (Auto) [place] % (Auto) Eos % (Auto) Baso % (Auto) Neut # (Auto) Lymph # (Auto) [place] # (Auto) Eos # (Auto) Baso # (Auto) Immature Gran % Nucleated RBC % Immature Gran # Nucleated RBCs # Immature Plt Fraction INR PT Patient/Control Mix Circ Anticoag PTT Patient Temperature ABG pH 7.396 7.422 ABG pH at Pt Temp ABG pCO2 38.7 34.9 L ABG pCO2 at Pt Temp ABG pO2 105.1 H 100.7 H ABG pO2 at Pt Temp ABG HCO3 23.2 22.2 ABG Total CO2 24.4 23.3 ABG O2 Saturation 97.3 97.3 ABG Base Excess -1.4 -1.7 ABG Sodium VBG pH VBG pCO2 VBG pO2 VBG HCO3 VBG Total CO2 VBG O2 Saturation VBG Base Excess Hemoglobin 10.7 L D 12.4 L Hematocrit 31.0 L 36.0 L Ionized Calcium FiO2 Sodium Potassium 4.1 3.7 Chloride Carbon Dioxide Anion Gap BUN Creatinine GFR Calculation BUN/Creatinine Ratio Glucose 183 H 117 H POC Glucose Calculated Osmolality Calcium Venous Ioniz Calcium Magnesium Total Bilirubin AST ALT Alkaline Phosphatase Total Creatine Kinase 200 CK-MB (CK-2) 19.3 H CK and CKMB Interp 9.7 Troponin I 4.260 H Total Protein Albumin Globulin Albumin/Globulin Ratio Urine Color Urine Appearance Urine pH Ur Specific [place] Urine Protein Urine Glucose (UA) Urine Ketones Urine Blood Urine Nitrate Urine Bilirubin Urine Urobilinogen Urine Leukocytes Urine RBC Urine WBC Urine Mucus Ur Culture Indicated? Blood Type Antibody Screen Crossmatch - Diagnostic Findings Procedure: Chest x-ray: pending - EKG EKG results: interpreted by me EKG shows: sinus rhythm Quality Measures - VTE Contraindication to Pharmacological VTE Prophylaxis: High Risk of Bleeding <Peace Ibarra - Last Filed: 10/28/16 17:56> History of Present Illness - Consult Narrative History of present illness: Mr. Urias is a 76 year old male CC: Brad Gómez MD Physical Examination Vital Signs Temp Pulse Resp BP Pulse Ox 97.9 F 63 18 123/63 98 10/27/16 08:50 10/27/16 08:50 10/27/16 08:50 10/27/16 08:50 10/27/16 08:50 Result/EKG - Labs CBC & BMP: 10/28/16 11:17 10/28/16 11:24 Labs: Laboratory Results - last 24 hr 10/27/16 10/27/16 10/28/16 09:21 17:50 04:25 WBC RBC Hgb Hct MCV MCH MCHC RDW Plt Count MPV Neut % (Auto) Lymph % (Auto) [place] % (Auto) Eos % (Auto) Baso % (Auto) Neut # (Auto) Lymph # (Auto) [place] # (Auto) Eos # (Auto) Baso # (Auto) Immature Gran % Nucleated RBC % Immature Gran # Nucleated RBCs # Immature Plt Fraction INR 1.0 PT Patient/Control Mix 10.9 Circ Anticoag PTT 27.3 Patient Temperature ABG pH 7.400 ABG pH at Pt Temp ABG pCO2 37.8 ABG pCO2 at Pt Temp ABG pO2 76.8 L ABG pO2 at Pt Temp ABG HCO3 22.9 ABG Total CO2 24.0 ABG O2 Saturation 95.2 ABG Base Excess -1.5 ABG Sodium VBG pH VBG pCO2 VBG pO2 VBG HCO3 VBG Total CO2 VBG O2 Saturation VBG Base Excess Hemoglobin Hematocrit Ionized Calcium FiO2 21.00 Sodium Potassium Chloride Carbon Dioxide Anion Gap BUN Creatinine GFR Calculation BUN/Creatinine Ratio Glucose POC Glucose Calculated Osmolality Calcium Venous Ioniz Calcium Magnesium Total Bilirubin AST ALT Alkaline Phosphatase Total Creatine Kinase CK-MB (CK-2) CK and CKMB Interp Troponin I Total Protein Albumin Globulin Albumin/Globulin Ratio Urine Color Urine Appearance Urine pH Ur Specific [place] Urine Protein Urine Glucose (UA) Urine Ketones Urine Blood Urine Nitrate Urine Bilirubin Urine Urobilinogen Urine Leukocytes Urine RBC Urine WBC Urine Mucus Ur Culture Indicated? Blood Type O NEGATIVE Antibody Screen Negative Crossmatch See Detail 10/28/16 10/28/16 10/28/16 04:25 04:34 07:12 WBC RBC Hgb Hct MCV MCH MCHC RDW Plt Count MPV Neut % (Auto) Lymph % (Auto) [place] % (Auto) Eos % (Auto) Baso % (Auto) Neut # (Auto) Lymph # (Auto) [place] # (Auto) Eos # (Auto) Baso # (Auto) Immature Gran % Nucleated RBC % Immature Gran # Nucleated RBCs # Immature Plt Fraction INR PT Patient/Control Mix Circ Anticoag PTT Patient Temperature ABG pH ABG pH at Pt Temp ABG pCO2 ABG pCO2 at Pt Temp ABG pO2 ABG pO2 at Pt Temp ABG HCO3 ABG Total CO2 ABG O2 Saturation ABG Base Excess ABG Sodium VBG pH VBG pCO2 VBG pO2 VBG HCO3 VBG Total CO2 VBG O2 Saturation VBG Base Excess Hemoglobin Hematocrit Ionized Calcium FiO2 Sodium 142 Potassium 4.2 Chloride 108 H Carbon Dioxide 27 Anion Gap 11.2 BUN 54 H Creatinine 2.60 H GFR Calculation 27 BUN/Creatinine Ratio 20.00 Glucose 106 POC Glucose 116 H Calculated Osmolality 297.1 Calcium 8.9 Venous Ioniz Calcium Magnesium 2.4 Total Bilirubin AST ALT Alkaline Phosphatase Total Creatine Kinase CK-MB (CK-2) CK and CKMB Interp Troponin I Total Protein Albumin Globulin Albumin/Globulin Ratio Urine Color Yellow Urine Appearance Clear Urine pH 6.0 Ur Specific [place] 1.012 Urine Protein Negative Urine Glucose (UA) 50 Urine Ketones Negative Urine Blood Negative Urine Nitrate Negative Urine Bilirubin Negative Urine Urobilinogen < 2.0 H Urine Leukocytes Negative Urine RBC 1 Urine WBC <1 Urine Mucus Occasional Ur Culture Indicated? Not indicated Blood Type Antibody Screen Crossmatch 10/28/16 10/28/16 10/28/16 07:56 07:56 09:10 WBC RBC Hgb Hct MCV MCH MCHC RDW Plt Count 138 D MPV Neut % (Auto) Lymph % (Auto) [place] % (Auto) Eos % (Auto) Baso % (Auto) Neut # (Auto) Lymph # (Auto) [place] # (Auto) Eos # (Auto) Baso # (Auto) Immature Gran % Nucleated RBC % Immature Gran # Nucleated RBCs # Immature Plt Fraction INR PT Patient/Control Mix Circ Anticoag PTT Patient Temperature 37 34 ABG pH 7.422 ABG pH at Pt Temp 7.422 7.444 ABG pCO2 34.6 L ABG pCO2 at Pt Temp 34.6 32.7 ABG pO2 124.0 H ABG pO2 at Pt Temp 124.0 38.1 ABG HCO3 23.3 ABG Total CO2 20.3 L ABG O2 Saturation 99.1 ABG Base Excess -1.4 ABG Sodium 139 130 L VBG pH 7.400 VBG pCO2 37.8 L VBG pO2 46.7 H VBG HCO3 23.3 L VBG Total CO2 22.1 VBG O2 Saturation 82.0 VBG Base Excess -1.1 L Hemoglobin 10.7 L 7.3 L D Hematocrit 33.1 L 22.8 L Ionized Calcium 1.18 L FiO2 80.00 Sodium Potassium 4.1 4.8 Chloride Carbon Dioxide Anion Gap BUN Creatinine GFR Calculation BUN/Creatinine Ratio Glucose 119 H 295 H POC Glucose Calculated Osmolality Calcium Venous Ioniz Calcium 0.98 L Magnesium Total Bilirubin AST ALT Alkaline Phosphatase Total Creatine Kinase CK-MB (CK-2) CK and CKMB Interp Troponin I Total Protein Albumin Globulin Albumin/Globulin Ratio Urine Color Urine Appearance Urine pH Ur Specific [place] Urine Protein Urine Glucose (UA) Urine Ketones Urine Blood Urine Nitrate Urine Bilirubin Urine Urobilinogen Urine Leukocytes Urine RBC Urine WBC Urine Mucus Ur Culture Indicated? Blood Type Antibody Screen Crossmatch 10/28/16 10/28/16 10/28/16 09:55 10:40 10:40 WBC RBC Hgb Hct MCV MCH MCHC RDW Plt Count 82 L D MPV Neut % (Auto) Lymph % (Auto) [place] % (Auto) Eos % (Auto) Baso % (Auto) Neut # (Auto) Lymph # (Auto) [place] # (Auto) Eos # (Auto) Baso # (Auto) Immature Gran % Nucleated RBC % Immature Gran # Nucleated RBCs # Immature Plt Fraction INR PT Patient/Control Mix Circ Anticoag PTT Patient Temperature 36 37 ABG pH 7.417 ABG pH at Pt Temp 7.411 7.417 ABG pCO2 35.4 ABG pCO2 at Pt Temp 35.8 35.4 ABG pO2 166.0 H ABG pO2 at Pt Temp 34.0 166.0 ABG HCO3 22.3 ABG Total CO2 23.4 ABG O2 Saturation 99.0 ABG Base Excess -1.9 ABG Sodium 130 L 131 L VBG pH 7.396 VBG pCO2 37.4 L VBG pO2 36.5 VBG HCO3 22.4 L VBG Total CO2 23.6 VBG O2 Saturation 73.2 VBG Base Excess -2.2 L Hemoglobin 8.0 L 8.5 L Hematocrit 24.0 L 25.0 L Ionized Calcium 1.16 L FiO2 80.00 Sodium Potassium 5.2 H 4.4 Chloride Carbon Dioxide Anion Gap BUN Creatinine GFR Calculation BUN/Creatinine Ratio Glucose 224 H 198 H POC Glucose Calculated Osmolality Calcium Venous Ioniz Calcium 0.99 Magnesium Total Bilirubin AST ALT Alkaline Phosphatase Total Creatine Kinase CK-MB (CK-2) CK and CKMB Interp Troponin I Total Protein Albumin Globulin Albumin/Globulin Ratio Urine Color Urine Appearance Urine pH Ur Specific [place] Urine Protein Urine Glucose (UA) Urine Ketones Urine Blood Urine Nitrate Urine Bilirubin Urine Urobilinogen Urine Leukocytes Urine RBC Urine WBC Urine Mucus Ur Culture Indicated? Blood Type Antibody Screen Crossmatch 10/28/16 10/28/16 10/28/16 11:17 11:17 11:24 WBC 12.7 H D RBC 3.20 L D Hgb 10.1 L D Hct 28.7 L MCV 89.7 MCH 32 MCHC 35.2 RDW 14.4 Plt Count 157 D MPV 11.8 Neut % (Auto) 78.4 H Lymph % (Auto) 11.3 L [place] % (Auto) 6.5 Eos % (Auto) 2.4 Baso % (Auto) 0.5 Neut # (Auto) 9.9 H Lymph # (Auto) 1.4 [place] # (Auto) 0.8 Eos # (Auto) 0.3 Baso # (Auto) 0.1 Immature Gran % 0.9 Nucleated RBC % 0.0 Immature Gran # 0.11 Nucleated RBCs # 0.00 Immature Plt Fraction 0.0 INR 1.2 PT Patient/Control Mix 13.1 D Circ Anticoag PTT 33.1 D Patient Temperature ABG pH ABG pH at Pt Temp ABG pCO2 ABG pCO2 at Pt Temp ABG pO2 ABG pO2 at Pt Temp ABG HCO3 ABG Total CO2 ABG O2 Saturation ABG Base Excess ABG Sodium VBG pH VBG pCO2 VBG pO2 VBG HCO3 VBG Total CO2 VBG O2 Saturation VBG Base Excess Hemoglobin Hematocrit Ionized Calcium FiO2 Sodium 138 Potassium 4.2 Chloride 105 Carbon Dioxide 23 Anion Gap 14.2 BUN 48 H Creatinine 2.40 H GFR Calculation 30 BUN/Creatinine Ratio 20.00 Glucose 185 H POC Glucose Calculated Osmolality 292.7 Calcium 8.4 L Venous Ioniz Calcium Magnesium 2.3 Total Bilirubin 1.40 H AST 23 ALT 16 Alkaline Phosphatase 33 L Total Creatine Kinase CK-MB (CK-2) CK and CKMB Interp Troponin I Total Protein 4.9 L Albumin 3.0 L Globulin 1.9 L Albumin/Globulin Ratio 1.5 Urine Color Urine Appearance Urine pH Ur Specific [place] Urine Protein Urine Glucose (UA) Urine Ketones Urine Blood Urine Nitrate Urine Bilirubin Urine Urobilinogen Urine Leukocytes Urine RBC Urine WBC Urine Mucus Ur Culture Indicated? Blood Type Antibody Screen Crossmatch 10/28/16 10/28/16 10/28/16 11:24 11:25 13:40 WBC RBC Hgb Hct MCV MCH MCHC RDW Plt Count MPV Neut % (Auto) Lymph % (Auto) [place] % (Auto) Eos % (Auto) Baso % (Auto) Neut # (Auto) Lymph # (Auto) [place] # (Auto) Eos # (Auto) Baso # (Auto) Immature Gran % Nucleated RBC % Immature Gran # Nucleated RBCs # Immature Plt Fraction INR PT Patient/Control Mix Circ Anticoag PTT Patient Temperature ABG pH 7.396 7.422 ABG pH at Pt Temp ABG pCO2 38.7 34.9 L ABG pCO2 at Pt Temp ABG pO2 105.1 H 100.7 H ABG pO2 at Pt Temp ABG HCO3 23.2 22.2 ABG Total CO2 24.4 23.3 ABG O2 Saturation 97.3 97.3 ABG Base Excess -1.4 -1.7 ABG Sodium VBG pH VBG pCO2 VBG pO2 VBG HCO3 VBG Total CO2 VBG O2 Saturation VBG Base Excess Hemoglobin 10.7 L D 12.4 L Hematocrit 31.0 L 36.0 L Ionized Calcium FiO2 Sodium Potassium 4.1 3.7 Chloride Carbon Dioxide Anion Gap BUN Creatinine GFR Calculation BUN/Creatinine Ratio Glucose 183 H 117 H POC Glucose Calculated Osmolality Calcium Venous Ioniz Calcium Magnesium Total Bilirubin AST ALT Alkaline Phosphatase Total Creatine Kinase 200 CK-MB (CK-2) 19.3 H CK and CKMB Interp 9.7 Troponin I 4.260 H Total Protein Albumin Globulin Albumin/Globulin Ratio Urine Color Urine Appearance Urine pH Ur Specific [place] Urine Protein Urine Glucose (UA) Urine Ketones Urine Blood Urine Nitrate Urine Bilirubin Urine Urobilinogen Urine Leukocytes Urine RBC Urine WBC Urine Mucus Ur Culture Indicated? Blood Type Antibody Screen Crossmatch 10/28/16 15:00 WBC RBC Hgb Hct MCV MCH MCHC RDW Plt Count MPV Neut % (Auto) Lymph % (Auto) [place] % (Auto) Eos % (Auto) Baso % (Auto) Neut # (Auto) Lymph # (Auto) [place] # (Auto) Eos # (Auto) Baso # (Auto) Immature Gran % Nucleated RBC % Immature Gran # Nucleated RBCs # Immature Plt Fraction INR PT Patient/Control Mix Circ Anticoag PTT Patient Temperature ABG pH 7.425 ABG pH at Pt Temp ABG pCO2 34.2 L ABG pCO2 at Pt Temp ABG pO2 95.7 H ABG pO2 at Pt Temp ABG HCO3 21.9 ABG Total CO2 23.0 ABG O2 Saturation 96.9 ABG Base Excess -2.0 ABG Sodium VBG pH VBG pCO2 VBG pO2 VBG HCO3 VBG Total CO2 VBG O2 Saturation VBG Base Excess Hemoglobin 10.5 L Hematocrit 31.0 L Ionized Calcium FiO2 Sodium Potassium 4.1 Chloride Carbon Dioxide Anion Gap BUN Creatinine GFR Calculation BUN/Creatinine Ratio Glucose 90 POC Glucose Calculated Osmolality Calcium Venous Ioniz Calcium Magnesium Total Bilirubin AST ALT Alkaline Phosphatase Total Creatine Kinase CK-MB (CK-2) CK and CKMB Interp Troponin I Total Protein Albumin Globulin Albumin/Globulin Ratio Urine Color Urine Appearance Urine pH Ur Specific [place] Urine Protein Urine Glucose (UA) Urine Ketones Urine Blood Urine Nitrate Urine Bilirubin Urine Urobilinogen Urine Leukocytes Urine RBC Urine WBC Urine Mucus Ur Culture Indicated? Blood Type Antibody Screen Crossmatch
[2016-10-28 15:29] LABS: ABG HCO3 21.9 MMOL/L (20-26); ABG Oxygen Saturation 96.9 % (95-100); ABG PCO2 34.2 MM HG (35-48); ABG PH 7.425 (7.35-7.45); ABG PO2 95.7 MM HG (80-95); Glucose Heart Surgery 90 MG/DL (74-106); Hemoglobin Heart Surgery 10.5 G/DL (14.0-18.0); Potassium Heart/CVR 4.1 MMOL/L (3.5-5.1)
--- NOTE | 2016-10-28 18:01 | Anesthesia Post-Op ---
Anesthesia Post OP - Post Ansesthetic Evaluation Patient seen in post op: Yes Resp: other (vent) CV: other (neosyn infus) Mental: other (starting to arouse) Temp: within normal limits [id number]: within normal limits Nausea and Vomiting: within normal limits Pain: within normal limits Other:: insulin infus
[2016-10-28 18:11] LABS: ABG Base Excess -2.1 MMOL/L (-2.5-2.5); ABG HCO3 22.5 MMOL/L (20-26); ABG Oxygen Saturation 95.1 % (95-100); ABG PCO2 37.9 MM HG (35-48); ABG PH 7.392 (7.35-7.45); ABG PO2 79.1 MM HG (80-95); ABG TCO2 23.7 MMOL/L (23-27); Glucose Heart Surgery 153 MG/DL (74-106); Potassium Heart/CVR 4.3 MMOL/L (3.5-5.1)
[2016-10-28] MEDS: MORPHINE 2 MG/1 ML SYRINGE IV PRN ×2 (19:32→22:03)
[2016-10-28] MEDS: CEFUROXIME INJ 1,500 MG in SODIUM CHLORIDE 0.9% 100 ML IV SCH (19:58)
[2016-10-28 20:12] LABS: ABG Base Excess -2.2 MMOL/L (-2.5-2.5); ABG HCO3 22.7 MMOL/L (20-26); ABG PCO2 39.1 MM HG (35-48); ABG PH 7.381 (7.35-7.45); ABG TCO2 23.9 MMOL/L (23-27); Glucose Heart Surgery 153 MG/DL (74-106); Hemoglobin Heart Surgery 10.5 G/DL (14.0-18.0); Potassium Heart/CVR 4.4 MMOL/L (3.5-5.1)
[2016-10-28 21:11] LABS: CKMB % 6.9 %
[2016-10-28 21:12] LABS: Troponin I Only 5.83 NG/ML (0.00-0.045)
[2016-10-28] MEDS: ONDANSETRON 4 MG/2 ML VIAL IV PRN (23:33)
[2016-10-28 23:58] LABS: ABG Base Excess -2.5 MMOL/L (-2.5-2.5); ABG HCO3 22.8 MMOL/L (20-26); ABG Oxygen Saturation 95.7 % (95-100); ABG PCO2 41.2 MM HG (35-48); ABG PO2 86.1 MM HG (80-95); Glucose Heart Surgery 141 MG/DL (74-106); Hemoglobin Heart Surgery 10.5 G/DL (14.0-18.0); Potassium Heart/CVR 4.2 MMOL/L (3.5-5.1)
[2016-10-29 01:30] LABS: ABG Base Excess -2.8 MMOL/L (-2.5-2.5); ABG HCO3 21.5 MMOL/L (20-26); ABG Oxygen Saturation 96.6 % (95-100); ABG PCO2 35.3 MM HG (35-48); ABG PH 7.402 (7.35-7.45); ABG PO2 92.2 MM HG (80-95); ABG TCO2 22.6 MMOL/L (23-27); Glucose Heart Surgery 128 MG/DL (74-106); Hemoglobin Heart Surgery 10.5 G/DL (14.0-18.0); Potassium Heart/CVR 4.3 MMOL/L (3.5-5.1)
[2016-10-29 02:09] LABS: ABG Base Excess -3.7 MMOL/L (-2.5-2.5); ABG HCO3 21.2 MMOL/L (20-26); ABG Oxygen Saturation 97.3 % (95-100); ABG PH 7.365 (7.35-7.45); ABG PO2 107.6 MM HG (80-95); ABG TCO2 22.4 MMOL/L (23-27); Glucose Heart Surgery 126 MG/DL (74-106); Hemoglobin Heart Surgery 10.5 G/DL (14.0-18.0); Potassium Heart/CVR 4.1 MMOL/L (3.5-5.1)
[2016-10-29] MEDS: MORPHINE 2 MG/1 ML SYRINGE IV PRN ×4 (03:11→13:50)
[2016-10-29] MEDS: ONDANSETRON 4 MG/2 ML VIAL IV PRN ×3 (03:12→13:51)
[2016-10-29 04:03] LABS: ABG Base Excess -3.1 MMOL/L (-2.5-2.5); ABG HCO3 21.9 MMOL/L (20-26); ABG Oxygen Saturation 93.9 % (95-100); ABG PCO2 38.5 MM HG (35-48); ABG PH 7.372 (7.35-7.45); ABG PO2 71.9 MM HG (80-95); Glucose Heart Surgery 103 MG/DL (74-106); Hemoglobin Heart Surgery 10.2 G/DL (14.0-18.0); Potassium Heart/CVR 4.3 MMOL/L (3.5-5.1)
[2016-10-29 04:08] LABS: Basophils % 0.1 % (0.0-0.8); Hematocrit 27.3 VOL% (42.0-52.0); Hemoglobin 9.5 GM/DL (14.0-18.0); Immature Granulocytes % 0.6 %; Immature Granulocytes Absolute 0.11 #; Lymphocytes # 1.1 10*3/uL (1.4-4.0); Lymphocytes % 5.6 % (21.2-54.2); Mean Corpuscular HGB Conc 34.8 GM/DL (32-36); Mean Corpuscular Hemoglobin 31 PG (27-34); Mean Corpuscular Volume 89.8 FL (87-102); Mean Platelet Volume 11.9 FL (9.6-12.0); Monocytes # 1.2 10*3/uL (0.11-0.8); Monocytes % 6.6 % (1.7-12.7); Neutrophils # 16.3 10*3/uL (1.4-7.4); Neutrophils % 87.1 % (38.7-73.9); Platelet Count 172 T/CUMM (130-400); Red Blood Count 3.04 MC/CUMM (3.8-5.5); Red Cell Distribution Width 14.7 % (9.3-17.3); White Blood Count 18.7 T/CUMM (4-12)
[2016-10-29 04:38] LABS: Albumin 3.7 G/DL (3.4-5.0); Bilirubin,Direct 0.2 MG/DL (0.0-0.20); Bilirubin,Total 1.4 MG/DL (0.2-1.0); Calcium 8.3 MG/DL (8.5-10.1); Magnesium 2.2 MG/DL (1.8-2.4); Osmolality,Calculated 296.1 MOS/KG (273-304); Potassium 4.3 MMOL/L (3.5-5.1); Total Protein 5.5 G/DL (6.4-8.3)
[2016-10-29 04:46] LABS: CKMB % 5.1 %
[2016-10-29 04:56] LABS: Risk Ratio 4.82; VLDL CHOLESTEROL 15.4 MG/DL
[2016-10-29 05:02] LABS: Troponin I Only 4.86 NG/ML (0.00-0.045)
--- NOTE | 2016-10-29 06:05 | Cardiothoracic Progress Note ---
Cardiothoracic Subjective Interval history: Patient is awake alert and extubated. Vital signs have been stable through the night. Urine output has been good and his creatinine is 2.7 which is about his baseline. Cardiac output is ranging between 4.5 and 5 L/min and cardiac enzymes are within normal limits for postoperative day #1. Chest tube output is minimal and his chest tubes are discontinued and I think he can be transferred to telemetry later this morning. Exam (Progress Note) - Constitutional Vitals: Period Temp Pulse Resp BP Sys/Parsons Pulse Ox Last 24 Hr 97.0 F-98.5 F 72-83 8-17 87-145/45-63 95-100 Result/EKG - Labs CBC & BMP: 10/29/16 04:00 10/29/16 04:00 Labs: Laboratory Results - last 24 hr 10/27/16 10/28/16 10/28/16 09:21 07:12 07:56 WBC RBC Hgb Hct MCV MCH MCHC RDW Plt Count 138 D MPV Neut % (Auto) Lymph % (Auto) [place] % (Auto) Eos % (Auto) Baso % (Auto) Neut # (Auto) Lymph # (Auto) [place] # (Auto) Eos # (Auto) Baso # (Auto) Immature Gran % Nucleated RBC % Immature Gran # Nucleated RBCs # Immature Plt Fraction INR PT Patient/Control Mix Circ Anticoag PTT Patient Temperature ABG pH ABG pH at Pt Temp ABG pCO2 ABG pCO2 at Pt Temp ABG pO2 ABG pO2 at Pt Temp ABG HCO3 ABG Total CO2 ABG O2 Saturation ABG Base Excess ABG Sodium VBG pH VBG pCO2 VBG pO2 VBG HCO3 VBG Total CO2 VBG O2 Saturation VBG Base Excess Hemoglobin Hematocrit Potassium Glucose Ionized Calcium FiO2 Sodium Chloride Carbon Dioxide Anion Gap BUN Creatinine GFR Calculation BUN/Creatinine Ratio Calculated Osmolality Calcium Venous Ioniz Calcium Magnesium Total Bilirubin Direct Bilirubin AST ALT Alkaline Phosphatase Total Creatine Kinase CK-MB (CK-2) CK and CKMB Interp Troponin I Total Protein Albumin Globulin Albumin/Globulin Ratio Triglycerides Cholesterol LDL Cholesterol VLDL Cholesterol HDL Cholesterol Heart Disease Risk Ratio Urine Color Yellow Urine Appearance Clear Urine pH 6.0 Ur Specific [facility] 1.012 Urine Protein Negative Urine Glucose (UA) 50 Urine Ketones Negative Urine Blood Negative Urine Nitrate Negative Urine Bilirubin Negative Urine Urobilinogen < 2.0 H Urine Leukocytes Negative Urine RBC 1 Urine WBC <1 Urine Mucus Occasional Ur Culture Indicated? Not indicated Blood Type O NEGATIVE Antibody Screen Negative Crossmatch See Detail 10/28/16 10/28/16 10/28/16 07:56 09:10 09:55 WBC RBC Hgb Hct MCV MCH MCHC RDW Plt Count MPV Neut % (Auto) Lymph % (Auto) [place] % (Auto) Eos % (Auto) Baso % (Auto) Neut # (Auto) Lymph # (Auto) [place] # (Auto) Eos # (Auto) Baso # (Auto) Immature Gran % Nucleated RBC % Immature Gran # Nucleated RBCs # Immature Plt Fraction INR PT Patient/Control Mix Circ Anticoag PTT Patient Temperature 37 34 36 ABG pH 7.422 ABG pH at Pt Temp 7.422 7.444 7.411 ABG pCO2 34.6 L ABG pCO2 at Pt Temp 34.6 32.7 35.8 ABG pO2 124.0 H ABG pO2 at Pt Temp 124.0 38.1 34.0 ABG HCO3 23.3 ABG Total CO2 20.3 L ABG O2 Saturation 99.1 ABG Base Excess -1.4 ABG Sodium 139 130 L 130 L VBG pH 7.400 7.396 VBG pCO2 37.8 L 37.4 L VBG pO2 46.7 H 36.5 VBG HCO3 23.3 L 22.4 L VBG Total CO2 22.1 23.6 VBG O2 Saturation 82.0 73.2 VBG Base Excess -1.1 L -2.2 L Hemoglobin 10.7 L 7.3 L D 8.0 L Hematocrit 33.1 L 22.8 L 24.0 L Potassium 4.1 4.8 5.2 H Glucose 119 H 295 H 224 H Ionized Calcium 1.18 L FiO2 80.00 80.00 Sodium Chloride Carbon Dioxide Anion Gap BUN Creatinine GFR Calculation BUN/Creatinine Ratio Calculated Osmolality Calcium Venous Ioniz Calcium 0.98 L 0.99 Magnesium Total Bilirubin Direct Bilirubin AST ALT Alkaline Phosphatase Total Creatine Kinase CK-MB (CK-2) CK and CKMB Interp Troponin I Total Protein Albumin Globulin Albumin/Globulin Ratio Triglycerides Cholesterol LDL Cholesterol VLDL Cholesterol HDL Cholesterol Heart Disease Risk Ratio Urine Color Urine Appearance Urine pH Ur Specific [facility] Urine Protein Urine Glucose (UA) Urine Ketones Urine Blood Urine Nitrate Urine Bilirubin Urine Urobilinogen Urine Leukocytes Urine RBC Urine WBC Urine Mucus Ur Culture Indicated? Blood Type Antibody Screen Crossmatch 10/28/16 10/28/16 10/28/16 10:40 10:40 11:17 WBC 12.7 H D RBC 3.20 L D Hgb 10.1 L D Hct 28.7 L MCV 89.7 MCH 32 MCHC 35.2 RDW 14.4 Plt Count 82 L D 157 D MPV 11.8 Neut % (Auto) 78.4 H Lymph % (Auto) 11.3 L [place] % (Auto) 6.5 Eos % (Auto) 2.4 Baso % (Auto) 0.5 Neut # (Auto) 9.9 H Lymph # (Auto) 1.4 [place] # (Auto) 0.8 Eos # (Auto) 0.3 Baso # (Auto) 0.1 Immature Gran % 0.9 Nucleated RBC % 0.0 Immature Gran # 0.11 Nucleated RBCs # 0.00 Immature Plt Fraction 0.0 INR PT Patient/Control Mix Circ Anticoag PTT Patient Temperature 37 ABG pH 7.417 ABG pH at Pt Temp 7.417 ABG pCO2 35.4 ABG pCO2 at Pt Temp 35.4 ABG pO2 166.0 H ABG pO2 at Pt Temp 166.0 ABG HCO3 22.3 ABG Total CO2 23.4 ABG O2 Saturation 99.0 ABG Base Excess -1.9 ABG Sodium 131 L VBG pH VBG pCO2 VBG pO2 VBG HCO3 VBG Total CO2 VBG O2 Saturation VBG Base Excess Hemoglobin 8.5 L Hematocrit 25.0 L Potassium 4.4 Glucose 198 H Ionized Calcium 1.16 L FiO2 Sodium Chloride Carbon Dioxide Anion Gap BUN Creatinine GFR Calculation BUN/Creatinine Ratio Calculated Osmolality Calcium Venous Ioniz Calcium Magnesium Total Bilirubin Direct Bilirubin AST ALT Alkaline Phosphatase Total Creatine Kinase CK-MB (CK-2) CK and CKMB Interp Troponin I Total Protein Albumin Globulin Albumin/Globulin Ratio Triglycerides Cholesterol LDL Cholesterol VLDL Cholesterol HDL Cholesterol Heart Disease Risk Ratio Urine Color Urine Appearance Urine pH Ur Specific [facility] Urine Protein Urine Glucose (UA) Urine Ketones Urine Blood Urine Nitrate Urine Bilirubin Urine Urobilinogen Urine Leukocytes Urine RBC Urine WBC Urine Mucus Ur Culture Indicated? Blood Type Antibody Screen Crossmatch 10/28/16 10/28/16 10/28/16 11:17 11:24 11:24 WBC RBC Hgb Hct MCV MCH MCHC RDW Plt Count MPV Neut % (Auto) Lymph % (Auto) [place] % (Auto) Eos % (Auto) Baso % (Auto) Neut # (Auto) Lymph # (Auto) [place] # (Auto) Eos # (Auto) Baso # (Auto) Immature Gran % Nucleated RBC % Immature Gran # Nucleated RBCs # Immature Plt Fraction INR 1.2 PT Patient/Control Mix 13.1 D Circ Anticoag PTT 33.1 D Patient Temperature ABG pH ABG pH at Pt Temp ABG pCO2 ABG pCO2 at Pt Temp ABG pO2 ABG pO2 at Pt Temp ABG HCO3 ABG Total CO2 ABG O2 Saturation ABG Base Excess ABG Sodium VBG pH VBG pCO2 VBG pO2 VBG HCO3 VBG Total CO2 VBG O2 Saturation VBG Base Excess Hemoglobin Hematocrit Potassium 4.2 Glucose 185 H Ionized Calcium FiO2 Sodium 138 Chloride 105 Carbon Dioxide 23 Anion Gap 14.2 BUN 48 H Creatinine 2.40 H GFR Calculation 30 BUN/Creatinine Ratio 20.00 Calculated Osmolality 292.7 Calcium 8.4 L Venous Ioniz Calcium Magnesium 2.3 Total Bilirubin 1.40 H Direct Bilirubin AST 23 ALT 16 Alkaline Phosphatase 33 L Total Creatine Kinase 200 CK-MB (CK-2) 19.3 H CK and CKMB Interp 9.7 Troponin I 4.260 H Total Protein 4.9 L Albumin 3.0 L Globulin 1.9 L Albumin/Globulin Ratio 1.5 Triglycerides Cholesterol LDL Cholesterol VLDL Cholesterol HDL Cholesterol Heart Disease Risk Ratio Urine Color Urine Appearance Urine pH Ur Specific [facility] Urine Protein Urine Glucose (UA) Urine Ketones Urine Blood Urine Nitrate Urine Bilirubin Urine Urobilinogen Urine Leukocytes Urine RBC Urine WBC Urine Mucus Ur Culture Indicated? Blood Type Antibody Screen Crossmatch 10/28/16 10/28/16 10/28/16 11:25 13:40 15:00 WBC RBC Hgb Hct MCV MCH MCHC RDW Plt Count MPV Neut % (Auto) Lymph % (Auto) [place] % (Auto) Eos % (Auto) Baso % (Auto) Neut # (Auto) Lymph # (Auto) [place] # (Auto) Eos # (Auto) Baso # (Auto) Immature Gran % Nucleated RBC % Immature Gran # Nucleated RBCs # Immature Plt Fraction INR PT Patient/Control Mix Circ Anticoag PTT Patient Temperature ABG pH 7.396 7.422 7.425 ABG pH at Pt Temp ABG pCO2 38.7 34.9 L 34.2 L ABG pCO2 at Pt Temp ABG pO2 105.1 H 100.7 H 95.7 H ABG pO2 at Pt Temp ABG HCO3 23.2 22.2 21.9 ABG Total CO2 24.4 23.3 23.0 ABG O2 Saturation 97.3 97.3 96.9 ABG Base Excess -1.4 -1.7 -2.0 ABG Sodium VBG pH VBG pCO2 VBG pO2 VBG HCO3 VBG Total CO2 VBG O2 Saturation VBG Base Excess Hemoglobin 10.7 L D 12.4 L 10.5 L Hematocrit 31.0 L 36.0 L 31.0 L Potassium 4.1 3.7 4.1 Glucose 183 H 117 H 90 Ionized Calcium FiO2 Sodium Chloride Carbon Dioxide Anion Gap BUN Creatinine GFR Calculation BUN/Creatinine Ratio Calculated Osmolality Calcium Venous Ioniz Calcium Magnesium Total Bilirubin Direct Bilirubin AST ALT Alkaline Phosphatase Total Creatine Kinase CK-MB (CK-2) CK and CKMB Interp Troponin I Total Protein Albumin Globulin Albumin/Globulin Ratio Triglycerides Cholesterol LDL Cholesterol VLDL Cholesterol HDL Cholesterol Heart Disease Risk Ratio Urine Color Urine Appearance Urine pH Ur Specific [facility] Urine Protein Urine Glucose (UA) Urine Ketones Urine Blood Urine Nitrate Urine Bilirubin Urine Urobilinogen Urine Leukocytes Urine RBC Urine WBC Urine Mucus Ur Culture Indicated? Blood Type Antibody Screen Crossmatch 10/28/16 10/28/16 10/28/16 18:03 19:47 20:12 WBC RBC Hgb Hct MCV MCH MCHC RDW Plt Count MPV Neut % (Auto) Lymph % (Auto) [place] % (Auto) Eos % (Auto) Baso % (Auto) Neut # (Auto) Lymph # (Auto) [place] # (Auto) Eos # (Auto) Baso # (Auto) Immature Gran % Nucleated RBC % Immature Gran # Nucleated RBCs # Immature Plt Fraction INR PT Patient/Control Mix Circ Anticoag PTT Patient Temperature ABG pH 7.392 7.381 ABG pH at Pt Temp ABG pCO2 37.9 39.1 ABG pCO2 at Pt Temp ABG pO2 79.1 L 73.0 L ABG pO2 at Pt Temp ABG HCO3 22.5 22.7 ABG Total CO2 23.7 23.9 ABG O2 Saturation 95.1 94.0 L ABG Base Excess -2.1 -2.2 ABG Sodium VBG pH VBG pCO2 VBG pO2 VBG HCO3 VBG Total CO2 VBG O2 Saturation VBG Base Excess Hemoglobin 11.0 L 10.5 L Hematocrit 32.0 L 31.0 L Potassium 4.3 4.4 Glucose 153 H 153 H Ionized Calcium FiO2 Sodium Chloride Carbon Dioxide Anion Gap BUN Creatinine GFR Calculation BUN/Creatinine Ratio Calculated Osmolality Calcium Venous Ioniz Calcium Magnesium Total Bilirubin Direct Bilirubin AST ALT Alkaline Phosphatase Total Creatine Kinase 374 H D CK-MB (CK-2) 25.8 H D CK and CKMB Interp 6.9 Troponin I 5.830 H D Total Protein Albumin Globulin Albumin/Globulin Ratio Triglycerides Cholesterol LDL Cholesterol VLDL Cholesterol HDL Cholesterol Heart Disease Risk Ratio Urine Color Urine Appearance Urine pH Ur Specific [facility] Urine Protein Urine Glucose (UA) Urine Ketones Urine Blood Urine Nitrate Urine Bilirubin Urine Urobilinogen Urine Leukocytes Urine RBC Urine WBC Urine Mucus Ur Culture Indicated? Blood Type Antibody Screen Crossmatch 10/28/16 10/29/16 10/29/16 23:55 01:20 02:00 WBC RBC Hgb Hct MCV MCH MCHC RDW Plt Count MPV Neut % (Auto) Lymph % (Auto) [place] % (Auto) Eos % (Auto) Baso % (Auto) Neut # (Auto) Lymph # (Auto) [place] # (Auto) Eos # (Auto) Baso # (Auto) Immature Gran % Nucleated RBC % Immature Gran # Nucleated RBCs # Immature Plt Fraction INR PT Patient/Control Mix Circ Anticoag PTT Patient Temperature ABG pH 7.360 7.402 7.365 ABG pH at Pt Temp ABG pCO2 41.2 35.3 38.0 ABG pCO2 at Pt Temp ABG pO2 86.1 92.2 107.6 H ABG pO2 at Pt Temp ABG HCO3 22.8 21.5 21.2 ABG Total CO2 24.0 22.6 L 22.4 L ABG O2 Saturation 95.7 96.6 97.3 ABG Base Excess -2.5 -2.8 L -3.7 L ABG Sodium VBG pH VBG pCO2 VBG pO2 VBG HCO3 VBG Total CO2 VBG O2 Saturation VBG Base Excess Hemoglobin 10.5 L 10.5 L 10.5 L Hematocrit 31.0 L 31.0 L 31.0 L Potassium 4.2 4.3 4.1 Glucose 141 H 128 H 126 H Ionized Calcium FiO2 Sodium Chloride Carbon Dioxide Anion Gap BUN Creatinine GFR Calculation BUN/Creatinine Ratio Calculated Osmolality Calcium Venous Ioniz Calcium Magnesium Total Bilirubin Direct Bilirubin AST ALT Alkaline Phosphatase Total Creatine Kinase CK-MB (CK-2) CK and CKMB Interp Troponin I Total Protein Albumin Globulin Albumin/Globulin Ratio Triglycerides Cholesterol LDL Cholesterol VLDL Cholesterol HDL Cholesterol Heart Disease Risk Ratio Urine Color Urine Appearance Urine pH Ur Specific [facility] Urine Protein Urine Glucose (UA) Urine Ketones Urine Blood Urine Nitrate Urine Bilirubin Urine Urobilinogen Urine Leukocytes Urine RBC Urine WBC Urine Mucus Ur Culture Indicated? Blood Type Antibody Screen Crossmatch 10/29/16 10/29/16 10/29/16 04:00 04:00 04:00 WBC 18.7 H D RBC 3.04 L Hgb 9.5 L Hct 27.3 L MCV 89.8 MCH 31 MCHC 34.8 RDW 14.7 Plt Count 172 MPV 11.9 Neut % (Auto) 87.1 H Lymph % (Auto) 5.6 L [place] % (Auto) 6.6 Eos % (Auto) 0.0 Baso % (Auto) 0.1 Neut # (Auto) 16.3 H Lymph # (Auto) 1.1 L [place] # (Auto) 1.2 H Eos # (Auto) 0.0 Baso # (Auto) 0.0 Immature Gran % 0.6 Nucleated RBC % 0.0 Immature Gran # 0.11 Nucleated RBCs # 0.00 Immature Plt Fraction 0.0 INR PT Patient/Control Mix Circ Anticoag PTT Patient Temperature ABG pH ABG pH at Pt Temp ABG pCO2 ABG pCO2 at Pt Temp ABG pO2 ABG pO2 at Pt Temp ABG HCO3 ABG Total CO2 ABG O2 Saturation ABG Base Excess ABG Sodium VBG pH VBG pCO2 VBG pO2 VBG HCO3 VBG Total CO2 VBG O2 Saturation VBG Base Excess Hemoglobin Hematocrit Potassium 4.3 Glucose 106 Ionized Calcium FiO2 Sodium 142 Chloride 108 H Carbon Dioxide 23 Anion Gap 15.3 H BUN 53 H Creatinine 2.70 H GFR Calculation 26 BUN/Creatinine Ratio 19.00 Calculated Osmolality 296.1 Calcium 8.3 L Venous Ioniz Calcium Magnesium 2.2 Total Bilirubin 1.40 H Direct Bilirubin 0.200 AST 33 ALT 16 Alkaline Phosphatase 30 L Total Creatine Kinase 503 H D CK-MB (CK-2) 25.8 H CK and CKMB Interp 5.1 Troponin I 4.860 H Total Protein 5.5 L Albumin 3.7 Globulin 1.8 L Albumin/Globulin Ratio 2.0 Triglycerides Cholesterol LDL Cholesterol VLDL Cholesterol HDL Cholesterol Heart Disease Risk Ratio Urine Color Urine Appearance Urine pH Ur Specific [facility] Urine Protein Urine Glucose (UA) Urine Ketones Urine Blood Urine Nitrate Urine Bilirubin Urine Urobilinogen Urine Leukocytes Urine RBC Urine WBC Urine Mucus Ur Culture Indicated? Blood Type Antibody Screen Crossmatch 10/29/16 10/29/16 04:00 04:00 WBC RBC Hgb Hct MCV MCH MCHC RDW Plt Count MPV Neut % (Auto) Lymph % (Auto) [place] % (Auto) Eos % (Auto) Baso % (Auto) Neut # (Auto) Lymph # (Auto) [place] # (Auto) Eos # (Auto) Baso # (Auto) Immature Gran % Nucleated RBC % Immature Gran # Nucleated RBCs # Immature Plt Fraction INR PT Patient/Control Mix Circ Anticoag PTT Patient Temperature ABG pH 7.372 ABG pH at Pt Temp ABG pCO2 38.5 ABG pCO2 at Pt Temp ABG pO2 71.9 L ABG pO2 at Pt Temp ABG HCO3 21.9 ABG Total CO2 23.0 ABG O2 Saturation 93.9 L ABG Base Excess -3.1 L ABG Sodium VBG pH VBG pCO2 VBG pO2 VBG HCO3 VBG Total CO2 VBG O2 Saturation VBG Base Excess Hemoglobin 10.2 L Hematocrit 30.0 L Potassium 4.3 Glucose 103 Ionized Calcium FiO2 Sodium Chloride Carbon Dioxide Anion Gap BUN Creatinine GFR Calculation BUN/Creatinine Ratio Calculated Osmolality Calcium Venous Ioniz Calcium Magnesium Total Bilirubin Direct Bilirubin AST ALT Alkaline Phosphatase Total Creatine Kinase CK-MB (CK-2) CK and CKMB Interp Troponin I Total Protein Albumin Globulin Albumin/Globulin Ratio Triglycerides 77 Cholesterol 183 LDL Cholesterol 124.0 VLDL Cholesterol 15.4 HDL Cholesterol 38 L Heart Disease Risk Ratio 4.82 Urine Color Urine Appearance Urine pH Ur Specific [facility] Urine Protein Urine Glucose (UA) Urine Ketones Urine Blood Urine Nitrate Urine Bilirubin Urine Urobilinogen Urine Leukocytes Urine RBC Urine WBC Urine Mucus Ur Culture Indicated? Blood Type Antibody Screen Crossmatch Quality Measures - VTE Contraindication to Pharmacological VTE Prophylaxis: High Risk of Bleeding
--- NOTE | 2016-10-29 06:31 | XRay Report ---
History is post chest tube removal Comparison 10/28/2016 Heart is enlarged. Anterior chest tubes have been removed. ET tube is been removed. Other support devices grossly unchanged except for slight retraction of the [place]-Gabriel catheter with the tip in the distal right pulmonary artery. There is mild improved aeration in the left lung base. Minimal patchy opacities remain. No pneumothorax seen Impression: Mild improvement described above PROCEDURE INTERPRETED AT [facility] DEPARTMENT OF RADIOLOGY Final Report Signed by: Dr. Elizabeth Odell
--- NOTE | 2016-10-29 06:47 | Cardiology Progress Note ---
Assessment and Plan - Time spent with patient Time spent with patient: Less than 30 minutes (1) Renal insufficiency Status: Chronic Assessment and plan: He is stable he has run between 2.4 and 2.7. He is 2.7 today. Current Visit: No (2) Coronary artery disease Status: Chronic Assessment and plan: He is postop day 1 status post coronary artery bypass grafting. He has a HOLLEY in situ to the LAD saphenous vein graft to ramus intermedius and saphenous vein graft to the obtuse marginal. Current Visit: Yes Qualifiers: Coronary Disease-Associated Artery/Lesion type: lummi artery [place] vs. transplanted heart: lummi heart Associated angina: without angina Qualified Code(s): I25.10 - Atherosclerotic heart disease of lummi coronary artery without angina pectoris (3) Hypertension Status: Chronic Assessment and plan: Blood pressure is a little low at this time is being supported with minimal doses of pressor therapy weaning off. Current Visit: Yes Qualifiers: Hypertension type: essential hypertension Qualified Code(s): I10 - Essential (primary) hypertension Cardiology - PN: Subj Interval history: Mr. Urias was extubated around 2:00 this morning he looks quite good. His creatinine is stable at 2.7. He actually has no complaints and looks amazingly good. We had a conversation about his blood pressure which he is concerned about. He still on a very low-dose of phenylephrine and hopefully he can come off of that. He is awake and alert and aware enough to recognize his IV drips and is aware of what therefore. He looks quite good. Exam (Progress Note) - Constitutional Vitals: Period Temp Pulse Resp BP Sys/Parsons Pulse Ox Last 24 Hr 97.0 F-98.5 F 72-83 8-18 87-145/45-63 95-100 General appearance: normal weight - Head Head exam: Present: normal inspection - Eye Eye exam: Present: EOMI Pupils: Present: KRISTOFER - ENT ENT exam: Present: other (Membranes are dry) - Neck Neck exam: Present: normal inspection (Lines are in place) - Respiratory Respiratory exam: Present: clear to auscultation bilaterally - Cardiovascular Cardiovascular exam: Present: regular rate and rhythm (As of postoperative rub) - GI/Abdominal GI/Abdominal exam: Present: normal bowel sounds (Abdomen slightly distended but he has good bowel sounds) - Neurological Exam Neurological exam: Present: alert, oriented X3 - Psychiatric Psychiatric exam: Present: normal affect, normal mood - Skin Skin exam: Present: normal color Result/EKG - Labs CBC & BMP: 10/29/16 04:00 10/29/16 04:00 Labs: Laboratory Results - last 24 hr 10/27/16 10/28/16 10/28/16 09:21 07:12 07:56 WBC RBC Hgb Hct MCV MCH MCHC RDW Plt Count 138 D MPV Neut % (Auto) Lymph % (Auto) [place] % (Auto) Eos % (Auto) Baso % (Auto) Neut # (Auto) Lymph # (Auto) [place] # (Auto) Eos # (Auto) Baso # (Auto) Immature Gran % Nucleated RBC % Immature Gran # Nucleated RBCs # Immature Plt Fraction INR PT Patient/Control Mix Circ Anticoag PTT Patient Temperature ABG pH ABG pH at Pt Temp ABG pCO2 ABG pCO2 at Pt Temp ABG pO2 ABG pO2 at Pt Temp ABG HCO3 ABG Total CO2 ABG O2 Saturation ABG Base Excess ABG Sodium VBG pH VBG pCO2 VBG pO2 VBG HCO3 VBG Total CO2 VBG O2 Saturation VBG Base Excess Hemoglobin Hematocrit Potassium Glucose Ionized Calcium FiO2 Sodium Chloride Carbon Dioxide Anion Gap BUN Creatinine GFR Calculation BUN/Creatinine Ratio Calculated Osmolality Calcium Venous Ioniz Calcium Magnesium Total Bilirubin Direct Bilirubin AST ALT Alkaline Phosphatase Total Creatine Kinase CK-MB (CK-2) CK and CKMB Interp Troponin I Total Protein Albumin Globulin Albumin/Globulin Ratio Triglycerides Cholesterol LDL Cholesterol VLDL Cholesterol HDL Cholesterol Heart Disease Risk Ratio Urine Color Yellow Urine Appearance Clear Urine pH 6.0 Ur Specific [place] 1.012 Urine Protein Negative Urine Glucose (UA) 50 Urine Ketones Negative Urine Blood Negative Urine Nitrate Negative Urine Bilirubin Negative Urine Urobilinogen < 2.0 H Urine Leukocytes Negative Urine RBC 1 Urine WBC <1 Urine Mucus Occasional Ur Culture Indicated? Not indicated Blood Type O NEGATIVE Antibody Screen Negative Crossmatch See Detail 10/28/16 10/28/16 10/28/16 07:56 09:10 09:55 WBC RBC Hgb Hct MCV MCH MCHC RDW Plt Count MPV Neut % (Auto) Lymph % (Auto) [place] % (Auto) Eos % (Auto) Baso % (Auto) Neut # (Auto) Lymph # (Auto) [place] # (Auto) Eos # (Auto) Baso # (Auto) Immature Gran % Nucleated RBC % Immature Gran # Nucleated RBCs # Immature Plt Fraction INR PT Patient/Control Mix Circ Anticoag PTT Patient Temperature 37 34 36 ABG pH 7.422 ABG pH at Pt Temp 7.422 7.444 7.411 ABG pCO2 34.6 L ABG pCO2 at Pt Temp 34.6 32.7 35.8 ABG pO2 124.0 H ABG pO2 at Pt Temp 124.0 38.1 34.0 ABG HCO3 23.3 ABG Total CO2 20.3 L ABG O2 Saturation 99.1 ABG Base Excess -1.4 ABG Sodium 139 130 L 130 L VBG pH 7.400 7.396 VBG pCO2 37.8 L 37.4 L VBG pO2 46.7 H 36.5 VBG HCO3 23.3 L 22.4 L VBG Total CO2 22.1 23.6 VBG O2 Saturation 82.0 73.2 VBG Base Excess -1.1 L -2.2 L Hemoglobin 10.7 L 7.3 L D 8.0 L Hematocrit 33.1 L 22.8 L 24.0 L Potassium 4.1 4.8 5.2 H Glucose 119 H 295 H 224 H Ionized Calcium 1.18 L FiO2 80.00 80.00 Sodium Chloride Carbon Dioxide Anion Gap BUN Creatinine GFR Calculation BUN/Creatinine Ratio Calculated Osmolality Calcium Venous Ioniz Calcium 0.98 L 0.99 Magnesium Total Bilirubin Direct Bilirubin AST ALT Alkaline Phosphatase Total Creatine Kinase CK-MB (CK-2) CK and CKMB Interp Troponin I Total Protein Albumin Globulin Albumin/Globulin Ratio Triglycerides Cholesterol LDL Cholesterol VLDL Cholesterol HDL Cholesterol Heart Disease Risk Ratio Urine Color Urine Appearance Urine pH Ur Specific [place] Urine Protein Urine Glucose (UA) Urine Ketones Urine Blood Urine Nitrate Urine Bilirubin Urine Urobilinogen Urine Leukocytes Urine RBC Urine WBC Urine Mucus Ur Culture Indicated? Blood Type Antibody Screen Crossmatch 10/28/16 10/28/16 10/28/16 10:40 10:40 11:17 WBC 12.7 H D RBC 3.20 L D Hgb 10.1 L D Hct 28.7 L MCV 89.7 MCH 32 MCHC 35.2 RDW 14.4 Plt Count 82 L D 157 D MPV 11.8 Neut % (Auto) 78.4 H Lymph % (Auto) 11.3 L [place] % (Auto) 6.5 Eos % (Auto) 2.4 Baso % (Auto) 0.5 Neut # (Auto) 9.9 H Lymph # (Auto) 1.4 [place] # (Auto) 0.8 Eos # (Auto) 0.3 Baso # (Auto) 0.1 Immature Gran % 0.9 Nucleated RBC % 0.0 Immature Gran # 0.11 Nucleated RBCs # 0.00 Immature Plt Fraction 0.0 INR PT Patient/Control Mix Circ Anticoag PTT Patient Temperature 37 ABG pH 7.417 ABG pH at Pt Temp 7.417 ABG pCO2 35.4 ABG pCO2 at Pt Temp 35.4 ABG pO2 166.0 H ABG pO2 at Pt Temp 166.0 ABG HCO3 22.3 ABG Total CO2 23.4 ABG O2 Saturation 99.0 ABG Base Excess -1.9 ABG Sodium 131 L VBG pH VBG pCO2 VBG pO2 VBG HCO3 VBG Total CO2 VBG O2 Saturation VBG Base Excess Hemoglobin 8.5 L Hematocrit 25.0 L Potassium 4.4 Glucose 198 H Ionized Calcium 1.16 L FiO2 Sodium Chloride Carbon Dioxide Anion Gap BUN Creatinine GFR Calculation BUN/Creatinine Ratio Calculated Osmolality Calcium Venous Ioniz Calcium Magnesium Total Bilirubin Direct Bilirubin AST ALT Alkaline Phosphatase Total Creatine Kinase CK-MB (CK-2) CK and CKMB Interp Troponin I Total Protein Albumin Globulin Albumin/Globulin Ratio Triglycerides Cholesterol LDL Cholesterol VLDL Cholesterol HDL Cholesterol Heart Disease Risk Ratio Urine Color Urine Appearance Urine pH Ur Specific [place] Urine Protein Urine Glucose (UA) Urine Ketones Urine Blood Urine Nitrate Urine Bilirubin Urine Urobilinogen Urine Leukocytes Urine RBC Urine WBC Urine Mucus Ur Culture Indicated? Blood Type Antibody Screen Crossmatch 10/28/16 10/28/16 10/28/16 11:17 11:24 11:24 WBC RBC Hgb Hct MCV MCH MCHC RDW Plt Count MPV Neut % (Auto) Lymph % (Auto) [place] % (Auto) Eos % (Auto) Baso % (Auto) Neut # (Auto) Lymph # (Auto) [place] # (Auto) Eos # (Auto) Baso # (Auto) Immature Gran % Nucleated RBC % Immature Gran # Nucleated RBCs # Immature Plt Fraction INR 1.2 PT Patient/Control Mix 13.1 D Circ Anticoag PTT 33.1 D Patient Temperature ABG pH ABG pH at Pt Temp ABG pCO2 ABG pCO2 at Pt Temp ABG pO2 ABG pO2 at Pt Temp ABG HCO3 ABG Total CO2 ABG O2 Saturation ABG Base Excess ABG Sodium VBG pH VBG pCO2 VBG pO2 VBG HCO3 VBG Total CO2 VBG O2 Saturation VBG Base Excess Hemoglobin Hematocrit Potassium 4.2 Glucose 185 H Ionized Calcium FiO2 Sodium 138 Chloride 105 Carbon Dioxide 23 Anion Gap 14.2 BUN 48 H Creatinine 2.40 H GFR Calculation 30 BUN/Creatinine Ratio 20.00 Calculated Osmolality 292.7 Calcium 8.4 L Venous Ioniz Calcium Magnesium 2.3 Total Bilirubin 1.40 H Direct Bilirubin AST 23 ALT 16 Alkaline Phosphatase 33 L Total Creatine Kinase 200 CK-MB (CK-2) 19.3 H CK and CKMB Interp 9.7 Troponin I 4.260 H Total Protein 4.9 L Albumin 3.0 L Globulin 1.9 L Albumin/Globulin Ratio 1.5 Triglycerides Cholesterol LDL Cholesterol VLDL Cholesterol HDL Cholesterol Heart Disease Risk Ratio Urine Color Urine Appearance Urine pH Ur Specific [place] Urine Protein Urine Glucose (UA) Urine Ketones Urine Blood Urine Nitrate Urine Bilirubin Urine Urobilinogen Urine Leukocytes Urine RBC Urine WBC Urine Mucus Ur Culture Indicated? Blood Type Antibody Screen Crossmatch 10/28/16 10/28/16 10/28/16 11:25 13:40 15:00 WBC RBC Hgb Hct MCV MCH MCHC RDW Plt Count MPV Neut % (Auto) Lymph % (Auto) [place] % (Auto) Eos % (Auto) Baso % (Auto) Neut # (Auto) Lymph # (Auto) [place] # (Auto) Eos # (Auto) Baso # (Auto) Immature Gran % Nucleated RBC % Immature Gran # Nucleated RBCs # Immature Plt Fraction INR PT Patient/Control Mix Circ Anticoag PTT Patient Temperature ABG pH 7.396 7.422 7.425 ABG pH at Pt Temp ABG pCO2 38.7 34.9 L 34.2 L ABG pCO2 at Pt Temp ABG pO2 105.1 H 100.7 H 95.7 H ABG pO2 at Pt Temp ABG HCO3 23.2 22.2 21.9 ABG Total CO2 24.4 23.3 23.0 ABG O2 Saturation 97.3 97.3 96.9 ABG Base Excess -1.4 -1.7 -2.0 ABG Sodium VBG pH VBG pCO2 VBG pO2 VBG HCO3 VBG Total CO2 VBG O2 Saturation VBG Base Excess Hemoglobin 10.7 L D 12.4 L 10.5 L Hematocrit 31.0 L 36.0 L 31.0 L Potassium 4.1 3.7 4.1 Glucose 183 H 117 H 90 Ionized Calcium FiO2 Sodium Chloride Carbon Dioxide Anion Gap BUN Creatinine GFR Calculation BUN/Creatinine Ratio Calculated Osmolality Calcium Venous Ioniz Calcium Magnesium Total Bilirubin Direct Bilirubin AST ALT Alkaline Phosphatase Total Creatine Kinase CK-MB (CK-2) CK and CKMB Interp Troponin I Total Protein Albumin Globulin Albumin/Globulin Ratio Triglycerides Cholesterol LDL Cholesterol VLDL Cholesterol HDL Cholesterol Heart Disease Risk Ratio Urine Color Urine Appearance Urine pH Ur Specific [place] Urine Protein Urine Glucose (UA) Urine Ketones Urine Blood Urine Nitrate Urine Bilirubin Urine Urobilinogen Urine Leukocytes Urine RBC Urine WBC Urine Mucus Ur Culture Indicated? Blood Type Antibody Screen Crossmatch 10/28/16 10/28/16 10/28/16 18:03 19:47 20:12 WBC RBC Hgb Hct MCV MCH MCHC RDW Plt Count MPV Neut % (Auto) Lymph % (Auto) [place] % (Auto) Eos % (Auto) Baso % (Auto) Neut # (Auto) Lymph # (Auto) [place] # (Auto) Eos # (Auto) Baso # (Auto) Immature Gran % Nucleated RBC % Immature Gran # Nucleated RBCs # Immature Plt Fraction INR PT Patient/Control Mix Circ Anticoag PTT Patient Temperature ABG pH 7.392 7.381 ABG pH at Pt Temp ABG pCO2 37.9 39.1 ABG pCO2 at Pt Temp ABG pO2 79.1 L 73.0 L ABG pO2 at Pt Temp ABG HCO3 22.5 22.7 ABG Total CO2 23.7 23.9 ABG O2 Saturation 95.1 94.0 L ABG Base Excess -2.1 -2.2 ABG Sodium VBG pH VBG pCO2 VBG pO2 VBG HCO3 VBG Total CO2 VBG O2 Saturation VBG Base Excess Hemoglobin 11.0 L 10.5 L Hematocrit 32.0 L 31.0 L Potassium 4.3 4.4 Glucose 153 H 153 H Ionized Calcium FiO2 Sodium Chloride Carbon Dioxide Anion Gap BUN Creatinine GFR Calculation BUN/Creatinine Ratio Calculated Osmolality Calcium Venous Ioniz Calcium Magnesium Total Bilirubin Direct Bilirubin AST ALT Alkaline Phosphatase Total Creatine Kinase 374 H D CK-MB (CK-2) 25.8 H D CK and CKMB Interp 6.9 Troponin I 5.830 H D Total Protein Albumin Globulin Albumin/Globulin Ratio Triglycerides Cholesterol LDL Cholesterol VLDL Cholesterol HDL Cholesterol Heart Disease Risk Ratio Urine Color Urine Appearance Urine pH Ur Specific [place] Urine Protein Urine Glucose (UA) Urine Ketones Urine Blood Urine Nitrate Urine Bilirubin Urine Urobilinogen Urine Leukocytes Urine RBC Urine WBC Urine Mucus Ur Culture Indicated? Blood Type Antibody Screen Crossmatch 10/28/16 10/29/16 10/29/16 23:55 01:20 02:00 WBC RBC Hgb Hct MCV MCH MCHC RDW Plt Count MPV Neut % (Auto) Lymph % (Auto) [place] % (Auto) Eos % (Auto) Baso % (Auto) Neut # (Auto) Lymph # (Auto) [place] # (Auto) Eos # (Auto) Baso # (Auto) Immature Gran % Nucleated RBC % Immature Gran # Nucleated RBCs # Immature Plt Fraction INR PT Patient/Control Mix Circ Anticoag PTT Patient Temperature ABG pH 7.360 7.402 7.365 ABG pH at Pt Temp ABG pCO2 41.2 35.3 38.0 ABG pCO2 at Pt Temp ABG pO2 86.1 92.2 107.6 H ABG pO2 at Pt Temp ABG HCO3 22.8 21.5 21.2 ABG Total CO2 24.0 22.6 L 22.4 L ABG O2 Saturation 95.7 96.6 97.3 ABG Base Excess -2.5 -2.8 L -3.7 L ABG Sodium VBG pH VBG pCO2 VBG pO2 VBG HCO3 VBG Total CO2 VBG O2 Saturation VBG Base Excess Hemoglobin 10.5 L 10.5 L 10.5 L Hematocrit 31.0 L 31.0 L 31.0 L Potassium 4.2 4.3 4.1 Glucose 141 H 128 H 126 H Ionized Calcium FiO2 Sodium Chloride Carbon Dioxide Anion Gap BUN Creatinine GFR Calculation BUN/Creatinine Ratio Calculated Osmolality Calcium Venous Ioniz Calcium Magnesium Total Bilirubin Direct Bilirubin AST ALT Alkaline Phosphatase Total Creatine Kinase CK-MB (CK-2) CK and CKMB Interp Troponin I Total Protein Albumin Globulin Albumin/Globulin Ratio Triglycerides Cholesterol LDL Cholesterol VLDL Cholesterol HDL Cholesterol Heart Disease Risk Ratio Urine Color Urine Appearance Urine pH Ur Specific [place] Urine Protein Urine Glucose (UA) Urine Ketones Urine Blood Urine Nitrate Urine Bilirubin Urine Urobilinogen Urine Leukocytes Urine RBC Urine WBC Urine Mucus Ur Culture Indicated? Blood Type Antibody Screen Crossmatch 10/29/16 10/29/16 10/29/16 04:00 04:00 04:00 WBC 18.7 H D RBC 3.04 L Hgb 9.5 L Hct 27.3 L MCV 89.8 MCH 31 MCHC 34.8 RDW 14.7 Plt Count 172 MPV 11.9 Neut % (Auto) 87.1 H Lymph % (Auto) 5.6 L [place] % (Auto) 6.6 Eos % (Auto) 0.0 Baso % (Auto) 0.1 Neut # (Auto) 16.3 H Lymph # (Auto) 1.1 L [place] # (Auto) 1.2 H Eos # (Auto) 0.0 Baso # (Auto) 0.0 Immature Gran % 0.6 Nucleated RBC % 0.0 Immature Gran # 0.11 Nucleated RBCs # 0.00 Immature Plt Fraction 0.0 INR PT Patient/Control Mix Circ Anticoag PTT Patient Temperature ABG pH ABG pH at Pt Temp ABG pCO2 ABG pCO2 at Pt Temp ABG pO2 ABG pO2 at Pt Temp ABG HCO3 ABG Total CO2 ABG O2 Saturation ABG Base Excess ABG Sodium VBG pH VBG pCO2 VBG pO2 VBG HCO3 VBG Total CO2 VBG O2 Saturation VBG Base Excess Hemoglobin Hematocrit Potassium 4.3 Glucose 106 Ionized Calcium FiO2 Sodium 142 Chloride 108 H Carbon Dioxide 23 Anion Gap 15.3 H BUN 53 H Creatinine 2.70 H GFR Calculation 26 BUN/Creatinine Ratio 19.00 Calculated Osmolality 296.1 Calcium 8.3 L Venous Ioniz Calcium Magnesium 2.2 Total Bilirubin 1.40 H Direct Bilirubin 0.200 AST 33 ALT 16 Alkaline Phosphatase 30 L Total Creatine Kinase 503 H D CK-MB (CK-2) 25.8 H CK and CKMB Interp 5.1 Troponin I 4.860 H Total Protein 5.5 L Albumin 3.7 Globulin 1.8 L Albumin/Globulin Ratio 2.0 Triglycerides Cholesterol LDL Cholesterol VLDL Cholesterol HDL Cholesterol Heart Disease Risk Ratio Urine Color Urine Appearance Urine pH Ur Specific [place] Urine Protein Urine Glucose (UA) Urine Ketones Urine Blood Urine Nitrate Urine Bilirubin Urine Urobilinogen Urine Leukocytes Urine RBC Urine WBC Urine Mucus Ur Culture Indicated? Blood Type Antibody Screen Crossmatch 10/29/16 10/29/16 04:00 04:00 WBC RBC Hgb Hct MCV MCH MCHC RDW Plt Count MPV Neut % (Auto) Lymph % (Auto) [place] % (Auto) Eos % (Auto) Baso % (Auto) Neut # (Auto) Lymph # (Auto) [place] # (Auto) Eos # (Auto) Baso # (Auto) Immature Gran % Nucleated RBC % Immature Gran # Nucleated RBCs # Immature Plt Fraction INR PT Patient/Control Mix Circ Anticoag PTT Patient Temperature ABG pH 7.372 ABG pH at Pt Temp ABG pCO2 38.5 ABG pCO2 at Pt Temp ABG pO2 71.9 L ABG pO2 at Pt Temp ABG HCO3 21.9 ABG Total CO2 23.0 ABG O2 Saturation 93.9 L ABG Base Excess -3.1 L ABG Sodium VBG pH VBG pCO2 VBG pO2 VBG HCO3 VBG Total CO2 VBG O2 Saturation VBG Base Excess Hemoglobin 10.2 L Hematocrit 30.0 L Potassium 4.3 Glucose 103 Ionized Calcium FiO2 Sodium Chloride Carbon Dioxide Anion Gap BUN Creatinine GFR Calculation BUN/Creatinine Ratio Calculated Osmolality Calcium Venous Ioniz Calcium Magnesium Total Bilirubin Direct Bilirubin AST ALT Alkaline Phosphatase Total Creatine Kinase CK-MB (CK-2) CK and CKMB Interp Troponin I Total Protein Albumin Globulin Albumin/Globulin Ratio Triglycerides 77 Cholesterol 183 LDL Cholesterol 124.0 VLDL Cholesterol 15.4 HDL Cholesterol 38 L Heart Disease Risk Ratio 4.82 Urine Color Urine Appearance Urine pH Ur Specific [place] Urine Protein Urine Glucose (UA) Urine Ketones Urine Blood Urine Nitrate Urine Bilirubin Urine Urobilinogen Urine Leukocytes Urine RBC Urine WBC Urine Mucus Ur Culture Indicated? Blood Type Antibody Screen Crossmatch Quality Measures - VTE Contraindication to Pharmacological VTE Prophylaxis: High Risk of Bleeding
[2016-10-29] MEDS: INSULIN REGULAR 100 UNIT/ML SUBCUT SCH ×4 (07:59→20:55)
[2016-10-29] MEDS: CEFUROXIME INJ 1,500 MG in SODIUM CHLORIDE 0.9% 100 ML IV SCH (07:59)
[2016-10-29] MEDS: FUROSEMIDE 20 MG TABLET PO SCH (08:00)
[2016-10-29] MEDS: CHLORHEXIDINE 0.12% ORAL RINSE 60 ML BOTTLE SWISH/SPIT SCH ×3 (08:00→20:55)
--- NOTE | 2016-10-29 08:11 | EKG Report ---
Stationary ECG Study [facility] Test Date: 10/29/2016 7:52:38 AM Pat Name: HELLEN LION Department: Room: 104 Gender: M Soc Analyst: NURA : [id number] Requested by: Brad Navarrete Order Number: [id number] Jaimie MD: RIDGE BATISTA Intervals [place] Rate: 79 P: 69 NE: 144 QRS: 13 QRSD: 85 T: 52 QT: 378 QTc: 413 Interpretive Statements SINUS RHYTHM Electronically Signed On 10-30-16 07:00:42 CDT by RIDGE BATISTA [email or web address]
[2016-10-29] MEDS: PANTOPRAZOLE 40 MG TABLET PO SCH ×2 (08:15→10:22)
[2016-10-29] MEDS ORDERED: MAGNESIUM SULF RIDER 4 GM in PREMIX 1 EACH IV PRN (09:46)
[2016-10-29] MEDS ORDERED: MAGNESIUM HYDROXIDE SUSP 30 ML UDCUP PO PRN (09:46)
[2016-10-29] MEDS ORDERED: SODIUM CHLOR 0.45% KCL 20 MEQ 20 MEQ/1,000 ML BAG IV SCH (09:46)
[2016-10-29] MEDS ORDERED: MAGNESIUM SULF RIDER 2 GM in PREMIX 1 EACH IV PRN (09:46)
[2016-10-29] MEDS ORDERED: POTASSIUM CHLORIDE 20 MEQ TABLET PO PRN (09:46)
[2016-10-29] MEDS ORDERED: GLUCAGON 1 MG VIAL IM PRN ×2 (09:46)
[2016-10-29] MEDS ORDERED: ALUMINUM/MAGNES/SIMETH MAX STR 30 ML UDCUP PO PRN (09:46)
[2016-10-29] MEDS ORDERED: ACETAMINOPHEN 325 MG TABLET PO PRN (09:46)
[2016-10-29] MEDS ORDERED: DEXTROSE 50% 25 GM/50 ML VIAL IV PRN ×2 (09:46)
[2016-10-29] MEDS ORDERED: INSULIN REGULAR 100 UNIT/ML SUBCUT SCH (10:00)
[2016-10-29 10:31] LABS: Basophils % 0.1 % (0.0-0.8); Hematocrit 29.2 VOL% (42.0-52.0); Hemoglobin 9.9 GM/DL (14.0-18.0); Immature Granulocytes Absolute 0.22 #; Lymphocytes # 1.4 10*3/uL (1.4-4.0); Lymphocytes % 6.3 % (21.2-54.2); Mean Corpuscular HGB Conc 33.9 GM/DL (32-36); Mean Corpuscular Hemoglobin 31 PG (27-34); Mean Corpuscular Volume 92.1 FL (87-102); Monocytes # 1.4 10*3/uL (0.11-0.8); Monocytes % 6.1 % (1.7-12.7); Neutrophils # 19.6 10*3/uL (1.4-7.4); Neutrophils % 86.5 % (38.7-73.9); Platelet Count 168 T/CUMM (130-400); Red Blood Count 3.17 MC/CUMM (3.8-5.5); Red Cell Distribution Width 14.9 % (9.3-17.3); White Blood Count 22.7 T/CUMM (4-12)
[2016-10-29] MEDS: FERROUS SULFATE 325 MG TABLET PO SCH (10:31)
[2016-10-29] MEDS: DOCUSATE SODIUM 100 MG CAPSULE PO SCH (10:31)
[2016-10-29] MEDS: ASPIRIN EC 325 MG TABLET PO SCH (10:31)
[2016-10-29 10:50] LABS: Band Neutrophils 3 % (0-10); Lymphocytes 7 % (20-55); Segmented Neutrophils 87 % (50-85); Total Cells Counted 100
[2016-10-29 10:51] LABS: Microcytosis Slight; Platelet Estimate Adequate
--- NOTE | 2016-10-29 18:40 | Operative Note ---
Date of procedure: 10/29/16 Pre-op diagnosis: Severe coronary artery disease Post-op diagnosis: same Procedure: [place] of the left great saphenous vein Assist with coronary artery bypass graft I made an incision from anterior to the medial malleolus all the way up to the knee. The saphenous vein was harvested in its entirety. All branches were clipped. Hemostasis was achieved. The subcutaneous tissue was then closed using PDS. Skin was then closed using frederick. As then moved to assist with coronary artery bypass graft with Dr. Gómez. I assisted with the distal anastomoses of the grafts. Details of the procedure is dictated by Dr. Gómez. Surgeon / Physician: Valentina Ga Results - Labs CBC & BMP: 10/29/16 10:25 10/29/16 04:00 Discharge Plan - Discharge Medications No Action amLODIPine [Norvasc] 10 mg PO DAILY Aspirin 325 mg PO AC BREAKFAST #100 tablet Carvedilol 3.125 mg PO BID Nitroglycerin [Nitroglycerin SL Tab] 1 tablet SL DIRECTED PRN PRN Reason: Chest Pain Minoxidil 2.5 mg PO DAILY PRN PRN Reason: Hypertension Furosemide Tab [Lasix Tab] 20 mg PO DAILY - Follow Up or Referral - Forms/Instructions Instructions: Heart Healthy Diet (GEN), Coronary Artery Bypass Graft, Manager Brand (GEN), Sternal Precautions (GEN)
[2016-10-29] MEDS ORDERED: CEFUROXIME INJ 1,500 MG in SODIUM CHLORIDE 0.9% 100 ML IV ONE (20:00)
[2016-10-30] MEDS: INSULIN REGULAR 100 UNIT/ML SUBCUT SCH ×6 (01:26→20:55)
[2016-10-30] MEDS ORDERED: DILTIAZEM INJ 100 MG in SODIUM CHLORIDE 0.9% 100 ML IV SCH (03:00)
[2016-10-30] MEDS: MORPHINE 2 MG/1 ML SYRINGE IV PRN (03:15)
[2016-10-30] MEDS: ONDANSETRON 4 MG/2 ML VIAL IV PRN (03:15)
[2016-10-30] MEDS: AMIODARONE INJ 450 MG in DEXTROSE 5% 241 ML IV SCH ×2 (03:28→20:54)
[2016-10-30 05:06] LABS: Basophils % 0.1 % (0.0-0.8); Hematocrit 26.4 VOL% (42.0-52.0); Hemoglobin 8.9 GM/DL (14.0-18.0); Immature Granulocytes % 0.9 %; Immature Granulocytes Absolute 0.18 #; Lymphocytes % 5.3 % (21.2-54.2); Mean Corpuscular HGB Conc 33.7 GM/DL (32-36); Mean Corpuscular Hemoglobin 31 PG (27-34); Mean Corpuscular Volume 92.6 FL (87-102); Mean Platelet Volume 12.8 FL (9.6-12.0); Monocytes # 1.6 10*3/uL (0.11-0.8); Monocytes % 8.1 % (1.7-12.7); Neutrophils # 16.3 10*3/uL (1.4-7.4); Neutrophils % 85.6 % (38.7-73.9); Platelet Count 126 T/CUMM (130-400); Red Blood Count 2.85 MC/CUMM (3.8-5.5)
[2016-10-30 05:36] LABS: Calcium 8.3 MG/DL (8.5-10.1); Magnesium 2.4 MG/DL (1.8-2.4); Osmolality,Calculated 304.3 MOS/KG (273-304); Potassium 4.6 MMOL/L (3.5-5.1)
[2016-10-30 05:44] LABS: Albumin 3.3 G/DL (3.4-5.0); Bilirubin,Direct 0.18 MG/DL (0.0-0.20); Bilirubin,Indirect 1.1 MG/DL (0.0-1.0); Bilirubin,Total 1.3 MG/DL (0.2-1.0); CKMB % 1.9 %; Calcium 8.5 MG/DL (8.5-10.1); Magnesium 2.4 MG/DL (1.8-2.4); Osmolality,Calculated 304.1 MOS/KG (273-304); Potassium 4.6 MMOL/L (3.5-5.1); Total Protein 5.6 G/DL (6.4-8.3)
[2016-10-30 05:48] LABS: Troponin I Only 2.2 NG/ML (0.00-0.045)
[2016-10-30] MEDS ORDERED: FUROSEMIDE 40 MG/4 ML VIAL IV ONE (06:00)
--- NOTE | 2016-10-30 06:21 | Cardiothoracic Progress Note ---
Cardiothoracic Subjective Interval history: Patient had a comfortable night. Vital signs have been stable and is breathing comfortably. Creatinine is 2.7 which is about his preoperative level. Overall his progress appears satisfactory and he is gradually increasing his activities according to routine postoperative protocol. Exam (Progress Note) - Constitutional Vitals: Period Temp Pulse Resp BP Sys/Parsons Pulse Ox Last 24 Hr 96.6 F-99.3 F 77-129 12-20 97-125/46-74 94-100 Result/EKG - Labs CBC & BMP: 10/30/16 04:37 10/30/16 04:37 Labs: Laboratory Results - last 24 hr 10/27/16 10/28/16 10/28/16 09:21 13:02 16:07 WBC RBC Hgb Hct MCV MCH MCHC RDW Plt Count MPV Neut % (Auto) Lymph % (Auto) [place] % (Auto) Eos % (Auto) Baso % (Auto) Neut # (Auto) Lymph # (Auto) [place] # (Auto) Eos # (Auto) Baso # (Auto) Total Counted Immature Gran % Nucleated RBC % Immature Gran # Segmented Neutrophils Band Neutrophils Lymphocytes Monocytes Nucleated RBCs # Platelet Estimate Immature Plt Fraction Microcytosis Sodium Potassium Chloride Carbon Dioxide Anion Gap BUN Creatinine GFR Calculation BUN/Creatinine Ratio Glucose POC Glucose 125 H 78 Calculated Osmolality Calcium Magnesium Total Bilirubin Direct Bilirubin Indirect Bilirubin AST ALT Alkaline Phosphatase Total Creatine Kinase CK-MB (CK-2) CK and CKMB Interp Troponin I Total Protein Albumin Globulin Albumin/Globulin Ratio Crossmatch See Detail 10/28/16 10/28/16 10/28/16 17:17 19:14 20:06 WBC RBC Hgb Hct MCV MCH MCHC RDW Plt Count MPV Neut % (Auto) Lymph % (Auto) [place] % (Auto) Eos % (Auto) Baso % (Auto) Neut # (Auto) Lymph # (Auto) [place] # (Auto) Eos # (Auto) Baso # (Auto) Total Counted Immature Gran % Nucleated RBC % Immature Gran # Segmented Neutrophils Band Neutrophils Lymphocytes Monocytes Nucleated RBCs # Platelet Estimate Immature Plt Fraction Microcytosis Sodium Potassium Chloride Carbon Dioxide Anion Gap BUN Creatinine GFR Calculation BUN/Creatinine Ratio Glucose POC Glucose 147 H 147 H 171 H Calculated Osmolality Calcium Magnesium Total Bilirubin Direct Bilirubin Indirect Bilirubin AST ALT Alkaline Phosphatase Total Creatine Kinase CK-MB (CK-2) CK and CKMB Interp Troponin I Total Protein Albumin Globulin Albumin/Globulin Ratio Crossmatch 10/28/16 10/28/16 10/28/16 20:57 21:59 23:00 WBC RBC Hgb Hct MCV MCH MCHC RDW Plt Count MPV Neut % (Auto) Lymph % (Auto) [place] % (Auto) Eos % (Auto) Baso % (Auto) Neut # (Auto) Lymph # (Auto) [place] # (Auto) Eos # (Auto) Baso # (Auto) Total Counted Immature Gran % Nucleated RBC % Immature Gran # Segmented Neutrophils Band Neutrophils Lymphocytes Monocytes Nucleated RBCs # Platelet Estimate Immature Plt Fraction Microcytosis Sodium Potassium Chloride Carbon Dioxide Anion Gap BUN Creatinine GFR Calculation BUN/Creatinine Ratio Glucose POC Glucose 160 H 165 H 153 H Calculated Osmolality Calcium Magnesium Total Bilirubin Direct Bilirubin Indirect Bilirubin AST ALT Alkaline Phosphatase Total Creatine Kinase CK-MB (CK-2) CK and CKMB Interp Troponin I Total Protein Albumin Globulin Albumin/Globulin Ratio Crossmatch 10/28/16 10/29/16 10/29/16 23:51 01:00 02:01 WBC RBC Hgb Hct MCV MCH MCHC RDW Plt Count MPV Neut % (Auto) Lymph % (Auto) [place] % (Auto) Eos % (Auto) Baso % (Auto) Neut # (Auto) Lymph # (Auto) [place] # (Auto) Eos # (Auto) Baso # (Auto) Total Counted Immature Gran % Nucleated RBC % Immature Gran # Segmented Neutrophils Band Neutrophils Lymphocytes Monocytes Nucleated RBCs # Platelet Estimate Immature Plt Fraction Microcytosis Sodium Potassium Chloride Carbon Dioxide Anion Gap BUN Creatinine GFR Calculation BUN/Creatinine Ratio Glucose POC Glucose 140 H 142 H 129 H Calculated Osmolality Calcium Magnesium Total Bilirubin Direct Bilirubin Indirect Bilirubin AST ALT Alkaline Phosphatase Total Creatine Kinase CK-MB (CK-2) CK and CKMB Interp Troponin I Total Protein Albumin Globulin Albumin/Globulin Ratio Crossmatch 10/29/16 10/29/16 10/29/16 03:19 03:59 05:02 WBC RBC Hgb Hct MCV MCH MCHC RDW Plt Count MPV Neut % (Auto) Lymph % (Auto) [place] % (Auto) Eos % (Auto) Baso % (Auto) Neut # (Auto) Lymph # (Auto) [place] # (Auto) Eos # (Auto) Baso # (Auto) Total Counted Immature Gran % Nucleated RBC % Immature Gran # Segmented Neutrophils Band Neutrophils Lymphocytes Monocytes Nucleated RBCs # Platelet Estimate Immature Plt Fraction Microcytosis Sodium Potassium Chloride Carbon Dioxide Anion Gap BUN Creatinine GFR Calculation BUN/Creatinine Ratio Glucose POC Glucose 116 H 110 H 90 Calculated Osmolality Calcium Magnesium Total Bilirubin Direct Bilirubin Indirect Bilirubin AST ALT Alkaline Phosphatase Total Creatine Kinase CK-MB (CK-2) CK and CKMB Interp Troponin I Total Protein Albumin Globulin Albumin/Globulin Ratio Crossmatch 10/29/16 10/29/16 10/29/16 06:25 10:25 11:52 WBC 22.7 H RBC 3.17 L Hgb 9.9 L Hct 29.2 L MCV 92.1 MCH 31 MCHC 33.9 RDW 14.9 Plt Count 168 MPV 12.0 Neut % (Auto) 86.5 H Lymph % (Auto) 6.3 L [place] % (Auto) 6.1 Eos % (Auto) 0.0 Baso % (Auto) 0.1 Neut # (Auto) 19.6 H Lymph # (Auto) 1.4 [place] # (Auto) 1.4 H Eos # (Auto) 0.0 Baso # (Auto) 0.0 Total Counted 100 Immature Gran % 1.0 Nucleated RBC % 0.0 Immature Gran # 0.22 Segmented Neutrophils 87 H Band Neutrophils 3 Lymphocytes 7 L Monocytes 3 Nucleated RBCs # 0.00 Platelet Estimate Adequate Immature Plt Fraction 0.0 Microcytosis Slight Sodium Potassium Chloride Carbon Dioxide Anion Gap BUN Creatinine GFR Calculation BUN/Creatinine Ratio Glucose POC Glucose 127 H 184 H Calculated Osmolality Calcium Magnesium Total Bilirubin Direct Bilirubin Indirect Bilirubin AST ALT Alkaline Phosphatase Total Creatine Kinase CK-MB (CK-2) CK and CKMB Interp Troponin I Total Protein Albumin Globulin Albumin/Globulin Ratio Crossmatch 10/29/16 10/29/16 10/30/16 15:51 19:36 01:01 WBC RBC Hgb Hct MCV MCH MCHC RDW Plt Count MPV Neut % (Auto) Lymph % (Auto) [place] % (Auto) Eos % (Auto) Baso % (Auto) Neut # (Auto) Lymph # (Auto) [place] # (Auto) Eos # (Auto) Baso # (Auto) Total Counted Immature Gran % Nucleated RBC % Immature Gran # Segmented Neutrophils Band Neutrophils Lymphocytes Monocytes Nucleated RBCs # Platelet Estimate Immature Plt Fraction Microcytosis Sodium Potassium Chloride Carbon Dioxide Anion Gap BUN Creatinine GFR Calculation BUN/Creatinine Ratio Glucose POC Glucose 176 H 186 H 160 H Calculated Osmolality Calcium Magnesium Total Bilirubin Direct Bilirubin Indirect Bilirubin AST ALT Alkaline Phosphatase Total Creatine Kinase CK-MB (CK-2) CK and CKMB Interp Troponin I Total Protein Albumin Globulin Albumin/Globulin Ratio Crossmatch 10/30/16 10/30/16 10/30/16 04:37 04:37 04:37 WBC 19.0 H RBC 2.85 L Hgb 8.9 L Hct 26.4 L MCV 92.6 MCH 31 MCHC 33.7 RDW 15.0 Plt Count 126 L D MPV 12.8 H Neut % (Auto) 85.6 H Lymph % (Auto) 5.3 L [place] % (Auto) 8.1 Eos % (Auto) 0.0 Baso % (Auto) 0.1 Neut # (Auto) 16.3 H Lymph # (Auto) 1.0 L [place] # (Auto) 1.6 H Eos # (Auto) 0.0 Baso # (Auto) 0.0 Total Counted Immature Gran % 0.9 Nucleated RBC % 0.0 Immature Gran # 0.18 Segmented Neutrophils Band Neutrophils Lymphocytes Monocytes Nucleated RBCs # 0.00 Platelet Estimate Immature Plt Fraction 0.0 Microcytosis Sodium 142 141 Potassium 4.6 4.6 Chloride 108 H 108 H Carbon Dioxide 24 24 Anion Gap 14.6 13.6 BUN 67 H 68 H Creatinine 2.60 H 2.60 H GFR Calculation 27 27 BUN/Creatinine Ratio 25.00 H 26.00 H Glucose 157 H 163 H POC Glucose Calculated Osmolality 304.1 H 304.3 H Calcium 8.5 8.3 L Magnesium 2.4 2.4 Total Bilirubin 1.30 H Direct Bilirubin 0.180 Indirect Bilirubin 1.1 H AST 25 ALT 19 Alkaline Phosphatase 35 L Total Creatine Kinase 456 H CK-MB (CK-2) 8.8 H D CK and CKMB Interp 1.9 Troponin I 2.200 H D Total Protein 5.6 L Albumin 3.3 L Globulin 2.3 Albumin/Globulin Ratio 1.4 Crossmatch Quality Measures - VTE Contraindication to Pharmacological VTE Prophylaxis: High Risk of Bleeding Specialty Discharge - Follow Up or Referrals
--- NOTE | 2016-10-30 07:12 | XRay Report ---
History short of breath Comparison 10/29/2016 Heart is enlarged. Davenport-Gabriel catheter is been removed There is been development of mildly increasing hazy bilateral pulmonary opacities without consolidation or pneumothorax seen Impression: Mildly increasing hazy pulmonary opacities most likely edema PROCEDURE INTERPRETED AT [facility] DEPARTMENT OF RADIOLOGY Final Report Signed by: Dr. Elizabeth Odell
[2016-10-30] MEDS: FUROSEMIDE 20 MG TABLET PO SCH (08:54)
[2016-10-30] MEDS: PANTOPRAZOLE 40 MG TABLET PO SCH (08:54)
[2016-10-30] MEDS: FERROUS SULFATE 325 MG TABLET PO SCH (08:54)
[2016-10-30] MEDS: DOCUSATE SODIUM 100 MG CAPSULE PO SCH (08:55)
[2016-10-30] MEDS: ASPIRIN EC 325 MG TABLET PO SCH (08:55)
[2016-10-30] MEDS: oxyCODONE/ACETAMINOPHEN 5-325 MG TABLET PO PRN ×2 (08:55→19:30)
[2016-10-30] MEDS: CHLORHEXIDINE 0.12% ORAL RINSE 60 ML BOTTLE SWISH/SPIT SCH ×2 (09:01→20:55)
--- NOTE | 2016-10-30 12:08 | Cardiology Progress Note ---
<Jadyn Tillman E - Last Filed: 10/30/16 11:49> Assessment and Plan - Time spent with patient Time spent with patient: Greater than 30 minutes (1) Renal insufficiency Status: Chronic Assessment and plan: Creatinine 2.6 this morning. Avoiding LYUDMILA inhibitor/ARB. Continue to monitor his creatinine daily. Current Visit: No (2) Hypercholesterolemia Status: Chronic Assessment and plan: Starting Crestor 20 mg orally each evening. LDL not at goal (124) Current Visit: No (3) Coronary artery disease Status: Chronic Assessment and plan: Status post revascularization. Progressing nicely with complaints of soreness. Will adjust his pain medicines for better control. Continue aspirin, restarting lipid-lowering agent, beta-africa if able prior to discharge but favor calcium channel africa at this point as we transition off IV diltiazem to oral diltiazem. Current Visit: Yes Qualifiers: Coronary Disease-Associated Artery/Lesion type: yuhaaviatam artery [place] vs. transplanted heart: yuhaaviatam heart Associated angina: without angina Qualified Code(s): I25.10 - Atherosclerotic heart disease of yuhaaviatam coronary artery without angina pectoris (4) Hypertension Status: Chronic Assessment and plan: Adjust medications accordingly during hospital stay. Current Visit: Yes Qualifiers: Hypertension type: essential hypertension Qualified Code(s): I10 - Essential (primary) hypertension (5) Atrial fibrillation with RVR Status: Acute Assessment and plan: New diagnosis. IV Amiodarone 24 hours has been initiated. Will start oral Amiodarone this evening, EKG in the morning. Monitor LFTs. Hopefully, patient will convert back to normal sinus rhythm. At this time, only on aspirin 325 mg orally daily. Current Visit: Yes (6) Sleep disorder Status: Chronic Assessment and plan: Dr. Dwyer has been following during the hospital stay. May be a candidate for HST while hospitalized. Current Visit: Yes Cardiology - PN: Subj Interval history: PLANT CONTROL OPERATOR: DR. ZARAGOZA SUMMARY: Mr. Urias, 76WM, was admitted for elective heart surgery. October patient underwent CABG 3 (HOLLEY - LAD, SVG - RI, SVG - OM). He tolerated the procedure well and without complication. Echo October 14, 2016: EF 65%, grade 1 diastolic dysfunction, mild concentric LVH, PAP 24 mmHg assuming RAP 5 mmHg. Patient was extubated quickly, chest tubes removed within 24 hours. OCTOBER 30, 2016: Around 0200 this morning, patient went into atrial fibrillation with rapid ventricular response, heart rate 150s. (New diagnosis) . Dr. Michel was called. IV Amiodarone was initiated as well as IV Cardizem. Heart rate is better controlled however he continues to be in atrial fibrillation. This morning's chest x-ray reveals mild edema. Patient was given an additional dose of IV Lasix this morning per Dr. Gómez. Continue aspirin 325 mg orally daily. Because his heart rate is controlled, I will transition from IV Diltiazem to the oral equivalent. I will start oral Amiodarone at the completion of the 24 hour infusion. EKG and labs in the a.m. Hopefully, patient will return to normal sinus rhythm soon. Would like to incorporate beta-africa in to patient's medication regimen however, at this time favor transitioning to calcium channel africa for rate control. Avoiding ARB/LYUDMILA due to fear of worsening renal insufficiency. Cardiac rehab, incentive spirometry and pulmonary toilet. Will further discuss with Dr. Ibarra and await additional recommendations. ASSESSMENT/PLAN: 1. CAD S/P CABG (HOLLEY - LAD, SVG - RI, SVG - OM) - POD 2. Continue Aspirin, start statin. Beta-africa if able prior to discharge 2. HISTORY OF HYPERTENSION - adjust medications accordingly during hospital stay 3. DYSLIPIDEMIA - LDL 124. Crestor 20 mg orally each evening. 4. CKD, STAGE III - avoiding nephrotoxic agents including ARB/LYUDMILA. 5. ATRIAL FIBRILLATION WITH RVR - rate is better controlled though he still remains in atrial fibrillation. Hopefully, patient will convert back to normal sinus rhythm now that Amiodarone has been initiated. Patient is taking aspirin 325 mg orally daily. 6. ANEMIA - expected post CABG, stable 7. SLEEP DISORDER - concerning for sleep apnea. Sleep medicine has been involved and has a plan in place Exam (Progress Note) - Constitutional Vitals: Period Temp Pulse Resp BP Sys/Parsons Pulse Ox Last 24 Hr 96.6 F-99.3 F 67-129 12-20 97-125/55-74 92-100 Exam: General: [Appears well with no apparent distress.] [Pleasant and cooperative. ] [Appears comfortable.] HEENT: [PERRL, normocephalic, atraumatic. Mucous membranes moist. No jaundice noted. Conjunctiva moist and clear, sclerae anicteric] Neck: No JVD/HJR, no thyromegaly or lymphadenopathy noted. No carotid bruit appreciated Cardiac: [Irregularly irregular rhythm, controlled rate.] [No obvious murmur noted. Lungs: [Clear to auscultation without accessory muscle use to assist the respiratory pattern.] Not requiring oxygen Abdomen: Soft, bowel sounds normoactive. Nontender and nondistended. No abdominal bruit or thrill noted. No masses noted. Musculoskeletal: No fluid collection. Decreased range of motion is noted. Extremities: No clubbing, cyanosis noted. [ No edema noted.] Upper extremity pulses 2+. Lower extremity pulses 2+. Dressing to left lower extremity dry and intact. Capillary refill less than 3 seconds. Skin: No unusual lesions or rashes. No skin breakdown appreciated. Neuro: Awake, alert and oriented 3. Moves all extremities well without hemiparesis or paralysis. No essential tremor is appreciated. Result/EKG - Labs CBC & BMP: 10/30/16 04:37 10/30/16 04:37 Lab Results: I have reviewed the past 24 hour labs Labs: Laboratory Results - last 24 hr 10/27/16 10/29/16 10/29/16 09:21 11:52 15:51 WBC RBC Hgb Hct MCV MCH MCHC RDW Plt Count MPV Neut % (Auto) Lymph % (Auto) [place] % (Auto) Eos % (Auto) Baso % (Auto) Neut # (Auto) Lymph # (Auto) [place] # (Auto) Eos # (Auto) Baso # (Auto) Immature Gran % Nucleated RBC % Immature Gran # Nucleated RBCs # Immature Plt Fraction Sodium Potassium Chloride Carbon Dioxide Anion Gap BUN Creatinine GFR Calculation BUN/Creatinine Ratio Glucose POC Glucose 184 H 176 H Calculated Osmolality Calcium Magnesium Total Bilirubin Direct Bilirubin Indirect Bilirubin AST ALT Alkaline Phosphatase Total Creatine Kinase CK-MB (CK-2) CK and CKMB Interp Troponin I Total Protein Albumin Globulin Albumin/Globulin Ratio Crossmatch See Detail 10/29/16 10/30/16 10/30/16 19:36 01:01 04:37 WBC 19.0 H RBC 2.85 L Hgb 8.9 L Hct 26.4 L MCV 92.6 MCH 31 MCHC 33.7 RDW 15.0 Plt Count 126 L D MPV 12.8 H Neut % (Auto) 85.6 H Lymph % (Auto) 5.3 L [place] % (Auto) 8.1 Eos % (Auto) 0.0 Baso % (Auto) 0.1 Neut # (Auto) 16.3 H Lymph # (Auto) 1.0 L [place] # (Auto) 1.6 H Eos # (Auto) 0.0 Baso # (Auto) 0.0 Immature Gran % 0.9 Nucleated RBC % 0.0 Immature Gran # 0.18 Nucleated RBCs # 0.00 Immature Plt Fraction 0.0 Sodium Potassium Chloride Carbon Dioxide Anion Gap BUN Creatinine GFR Calculation BUN/Creatinine Ratio Glucose POC Glucose 186 H 160 H Calculated Osmolality Calcium Magnesium Total Bilirubin Direct Bilirubin Indirect Bilirubin AST ALT Alkaline Phosphatase Total Creatine Kinase CK-MB (CK-2) CK and CKMB Interp Troponin I Total Protein Albumin Globulin Albumin/Globulin Ratio Crossmatch 10/30/16 10/30/16 10/30/16 04:37 04:37 07:22 WBC RBC Hgb Hct MCV MCH MCHC RDW Plt Count MPV Neut % (Auto) Lymph % (Auto) [place] % (Auto) Eos % (Auto) Baso % (Auto) Neut # (Auto) Lymph # (Auto) [place] # (Auto) Eos # (Auto) Baso # (Auto) Immature Gran % Nucleated RBC % Immature Gran # Nucleated RBCs # Immature Plt Fraction Sodium 142 141 Potassium 4.6 4.6 Chloride 108 H 108 H Carbon Dioxide 24 24 Anion Gap 14.6 13.6 BUN 67 H 68 H Creatinine 2.60 H 2.60 H GFR Calculation 27 27 BUN/Creatinine Ratio 25.00 H 26.00 H Glucose 157 H 163 H POC Glucose 170 H Calculated Osmolality 304.1 H 304.3 H Calcium 8.5 8.3 L Magnesium 2.4 2.4 Total Bilirubin 1.30 H Direct Bilirubin 0.180 Indirect Bilirubin 1.1 H AST 25 ALT 19 Alkaline Phosphatase 35 L Total Creatine Kinase 456 H CK-MB (CK-2) 8.8 H D CK and CKMB Interp 1.9 Troponin I 2.200 H D Total Protein 5.6 L Albumin 3.3 L Globulin 2.3 Albumin/Globulin Ratio 1.4 Crossmatch 10/30/16 10:58 WBC RBC Hgb Hct MCV MCH MCHC RDW Plt Count MPV Neut % (Auto) Lymph % (Auto) [place] % (Auto) Eos % (Auto) Baso % (Auto) Neut # (Auto) Lymph # (Auto) [place] # (Auto) Eos # (Auto) Baso # (Auto) Immature Gran % Nucleated RBC % Immature Gran # Nucleated RBCs # Immature Plt Fraction Sodium Potassium Chloride Carbon Dioxide Anion Gap BUN Creatinine GFR Calculation BUN/Creatinine Ratio Glucose POC Glucose 169 H Calculated Osmolality Calcium Magnesium Total Bilirubin Direct Bilirubin Indirect Bilirubin AST ALT Alkaline Phosphatase Total Creatine Kinase CK-MB (CK-2) CK and CKMB Interp Troponin I Total Protein Albumin Globulin Albumin/Globulin Ratio Crossmatch - Diagnostic Findings Procedure: Chest x-ray: report reviewed by me - EKG EKG results: interpreted by me EKG shows: atrial fibrillation Quality Measures - VTE Contraindication to Pharmacological VTE Prophylaxis: High Risk of Bleeding Specialty Discharge - Follow Up or Referrals <Peace Ibarra - Last Filed: 10/30/16 15:08> Assessment and Plan (1) Renal insufficiency Status: Chronic Current Visit: No (2) Coronary artery disease Status: Chronic Current Visit: Yes Qualifiers: Coronary Disease-Associated Artery/Lesion type: yuhaaviatam artery [place] vs. transplanted heart: yu[place]am heart Associated angina: without angina Qualified Code(s): I25.10 - Atherosclerotic heart disease of yuhaaviatam coronary artery without angina pectoris (3) Hypertension Status: Chronic Current Visit: Yes Qualifiers: Hypertension type: essential hypertension Qualified Code(s): I10 - Essential (primary) hypertension Cardiology - PN: Subj Interval history: I discussed with Ms. castillo. The patient seems to be doing okay. He has had A. fib and is on amiodarone now. He will likely need anticoagulation fully once safe from a surgical standpoint. Hopefully he will convert with amiodarone. He is a little fatigued today. I discussed with his . Exam (Progress Note) - Constitutional Vitals: Period Temp Pulse Resp BP Sys/Parsons Pulse Ox Last 24 Hr 96.6 F-99.3 F 65-129 12-20 106-125/55-74 92-100 Result/EKG - Labs CBC & BMP: 10/30/16 04:37 10/30/16 04:37 Labs: Laboratory Results - last 24 hr 10/27/16 10/29/16 10/29/16 09:21 15:51 19:36 WBC RBC Hgb Hct MCV MCH MCHC RDW Plt Count MPV Neut % (Auto) Lymph % (Auto) [place] % (Auto) Eos % (Auto) Baso % (Auto) Neut # (Auto) Lymph # (Auto) [place] # (Auto) Eos # (Auto) Baso # (Auto) Immature Gran % Nucleated RBC % Immature Gran # Nucleated RBCs # Immature Plt Fraction Sodium Potassium Chloride Carbon Dioxide Anion Gap BUN Creatinine GFR Calculation BUN/Creatinine Ratio Glucose POC Glucose 176 H 186 H Calculated Osmolality Calcium Magnesium Total Bilirubin Direct Bilirubin Indirect Bilirubin AST ALT Alkaline Phosphatase Total Creatine Kinase CK-MB (CK-2) CK and CKMB Interp Troponin I Total Protein Albumin Globulin Albumin/Globulin Ratio Crossmatch See Detail 10/30/16 10/30/16 10/30/16 01:01 04:37 04:37 WBC 19.0 H RBC 2.85 L Hgb 8.9 L Hct 26.4 L MCV 92.6 MCH 31 MCHC 33.7 RDW 15.0 Plt Count 126 L D MPV 12.8 H Neut % (Auto) 85.6 H Lymph % (Auto) 5.3 L [place] % (Auto) 8.1 Eos % (Auto) 0.0 Baso % (Auto) 0.1 Neut # (Auto) 16.3 H Lymph # (Auto) 1.0 L [place] # (Auto) 1.6 H Eos # (Auto) 0.0 Baso # (Auto) 0.0 Immature Gran % 0.9 Nucleated RBC % 0.0 Immature Gran # 0.18 Nucleated RBCs # 0.00 Immature Plt Fraction 0.0 Sodium 142 Potassium 4.6 Chloride 108 H Carbon Dioxide 24 Anion Gap 14.6 BUN 67 H Creatinine 2.60 H GFR Calculation 27 BUN/Creatinine Ratio 25.00 H Glucose 157 H POC Glucose 160 H Calculated Osmolality 304.1 H Calcium 8.5 Magnesium 2.4 Total Bilirubin 1.30 H Direct Bilirubin 0.180 Indirect Bilirubin 1.1 H AST 25 ALT 19 Alkaline Phosphatase 35 L Total Creatine Kinase 456 H CK-MB (CK-2) 8.8 H D CK and CKMB Interp 1.9 Troponin I 2.200 H D Total Protein 5.6 L Albumin 3.3 L Globulin 2.3 Albumin/Globulin Ratio 1.4 Crossmatch 10/30/16 10/30/16 10/30/16 04:37 07:22 10:58 WBC RBC Hgb Hct MCV MCH MCHC RDW Plt Count MPV Neut % (Auto) Lymph % (Auto) [place] % (Auto) Eos % (Auto) Baso % (Auto) Neut # (Auto) Lymph # (Auto) [place] # (Auto) Eos # (Auto) Baso # (Auto) Immature Gran % Nucleated RBC % Immature Gran # Nucleated RBCs # Immature Plt Fraction Sodium 141 Potassium 4.6 Chloride 108 H Carbon Dioxide 24 Anion Gap 13.6 BUN 68 H Creatinine 2.60 H GFR Calculation 27 BUN/Creatinine Ratio 26.00 H Glucose 163 H POC Glucose 170 H 169 H Calculated Osmolality 304.3 H Calcium 8.3 L Magnesium 2.4 Total Bilirubin Direct Bilirubin Indirect Bilirubin AST ALT Alkaline Phosphatase Total Creatine Kinase CK-MB (CK-2) CK and CKMB Interp Troponin I Total Protein Albumin Globulin Albumin/Globulin Ratio Crossmatch
[2016-10-30] MEDS: DILTIAZEM 30 MG TABLET PO SCH ×3 (12:40→20:55)
[2016-10-30] MEDS: ROSUVASTATIN 20 MG TABLET PO SCH (20:55)
[2016-10-31] MEDS: INSULIN REGULAR 100 UNIT/ML SUBCUT SCH ×6 (00:55→21:29)
[2016-10-31] MEDS: oxyCODONE/ACETAMINOPHEN 5-325 MG TABLET PO PRN ×3 (00:55→21:28)
[2016-10-31] MEDS: AMIODARONE 200 MG TABLET PO SCH ×3 (02:37→21:28)
[2016-10-31 04:48] LABS: Basophils % 0.1 % (0.0-0.8); Hematocrit 26.6 VOL% (42.0-52.0); Hemoglobin 9.2 GM/DL (14.0-18.0); Immature Granulocytes % 0.8 %; Immature Granulocytes Absolute 0.14 #; Lymphocytes # 1.1 10*3/uL (1.4-4.0); Lymphocytes % 6.1 % (21.2-54.2); Mean Corpuscular HGB Conc 34.6 GM/DL (32-36); Mean Corpuscular Hemoglobin 32 PG (27-34); Mean Corpuscular Volume 91.7 FL (87-102); Mean Platelet Volume 13.2 FL (9.6-12.0); Monocytes # 1.7 10*3/uL (0.11-0.8); Monocytes % 9.6 % (1.7-12.7); Neutrophils % 83.4 % (38.7-73.9); Platelet Count 139 T/CUMM (130-400); Red Cell Distribution Width 15.2 % (9.3-17.3)
[2016-10-31 05:34] LABS: Alanine Aminotransferase 17 U/L (16-61); Albumin 3.3 G/DL (3.4-5.0); Alkaline Phosphatase 32 U/L (45-117); Aspartate Amino Transferase 15 U/L (0-37); Bilirubin,Indirect 0.7 MG/DL (0.0-1.0); Blood Urea Nitrogen 69 MG/DL (7-18); Calcium 8.5 MG/DL (8.5-10.1); Glucose 142 MG/DL (74-106); Magnesium 2.6 MG/DL (1.8-2.4); Osmolality,Calculated 300.4 MOS/KG (273-304); Potassium 4.1 MMOL/L (3.5-5.1); Sodium 140 MMOL/L (136-145); Total Protein 5.5 G/DL (6.4-8.3)
--- NOTE | 2016-10-31 07:52 | XRay Report ---
Exam: XR chest 1V portable Date: 10/31/2016 4:00 AM Indication: Shortness of breath Comparison: 10/30/2016 Technical: AP portable Findings: Sternotomy wires are present. Low volume effusion and atelectatic change present. A left IJ catheter is present with distal tip superior vena cava at the atrial junction no pneumothorax. Mediastinum is otherwise unremarkable. Lateral marginal osteophytes are present. Impression: 1. Tiny low volume effusions 2. Stable position IJ catheter 3. Previous sternotomy 4. No significant interval change PROCEDURE INTERPRETED AT [facility] DEPARTMENT OF RADIOLOGY Final Report Signed by: Dr. Parish Mccormack
--- NOTE | 2016-10-31 08:51 | Cardiothoracic Progress Note ---
Cardiothoracic Subjective Interval history: Patient looks and feels okay. Vital signs are stable and he is breathing comfortably. We will plan to increase his activity as tolerated today and hopefully he will be ready for discharge before long. Exam (Progress Note) - Constitutional Vitals: Period Temp Pulse Resp BP Sys/Parsons Pulse Ox Last 24 Hr 97.3 F-99.5 F 65-97 12-20 114-137/64-75 87-93 Result/EKG - Labs CBC & BMP: 10/31/16 03:20 10/31/16 03:20 Labs: Laboratory Results - last 24 hr 10/30/16 10/30/16 10/30/16 10:58 15:59 20:26 WBC RBC Hgb Hct MCV MCH MCHC RDW Plt Count MPV Neut % (Auto) Lymph % (Auto) [place] % (Auto) Eos % (Auto) Baso % (Auto) Neut # (Auto) Lymph # (Auto) [place] # (Auto) Eos # (Auto) Baso # (Auto) Immature Gran % Nucleated RBC % Immature Gran # Nucleated RBCs # Immature Plt Fraction Sodium Potassium Chloride Carbon Dioxide Anion Gap BUN Creatinine GFR Calculation BUN/Creatinine Ratio Glucose POC Glucose 169 H 171 H 155 H Calculated Osmolality Calcium Magnesium Total Bilirubin Direct Bilirubin Indirect Bilirubin AST ALT Alkaline Phosphatase Total Creatine Kinase CK-MB (CK-2) Troponin I Total Protein Albumin Globulin Albumin/Globulin Ratio 10/31/16 10/31/16 03:20 03:20 WBC 18.0 H RBC 2.90 L Hgb 9.2 L Hct 26.6 L MCV 91.7 MCH 32 MCHC 34.6 RDW 15.2 Plt Count 139 MPV 13.2 H Neut % (Auto) 83.4 H Lymph % (Auto) 6.1 L [place] % (Auto) 9.6 Eos % (Auto) 0.0 Baso % (Auto) 0.1 Neut # (Auto) 15.0 H Lymph # (Auto) 1.1 L [place] # (Auto) 1.7 H Eos # (Auto) 0.0 Baso # (Auto) 0.0 Immature Gran % 0.8 Nucleated RBC % 0.0 Immature Gran # 0.14 Nucleated RBCs # 0.00 Immature Plt Fraction 0.0 Sodium 140 Potassium 4.1 Chloride 106 Carbon Dioxide 25 Anion Gap 13.1 BUN 69 H Creatinine 2.20 H GFR Calculation 33 BUN/Creatinine Ratio 31.00 H Glucose 142 H POC Glucose Calculated Osmolality 300.4 Calcium 8.5 Magnesium 2.6 H Total Bilirubin 0.90 Direct Bilirubin 0.210 H Indirect Bilirubin 0.7 AST 15 ALT 17 Alkaline Phosphatase 32 L Total Creatine Kinase 197 D CK-MB (CK-2) 2.5 D Troponin I 1.000 H D Total Protein 5.5 L Albumin 3.3 L Globulin 2.2 L Albumin/Globulin Ratio 1.5 Quality Measures - VTE Contraindication to Pharmacological VTE Prophylaxis: High Risk of Bleeding Specialty Discharge - Follow Up or Referrals
[2016-10-31] MEDS: DILTIAZEM 30 MG TABLET PO SCH ×4 (09:01→21:27)
[2016-10-31] MEDS: ASPIRIN EC 325 MG TABLET PO SCH (09:01)
[2016-10-31] MEDS: FERROUS SULFATE 325 MG TABLET PO SCH (09:02)
[2016-10-31] MEDS: FUROSEMIDE 20 MG TABLET PO SCH (09:02)
[2016-10-31] MEDS: DOCUSATE SODIUM 100 MG CAPSULE PO SCH (09:02)
[2016-10-31] MEDS: PANTOPRAZOLE 40 MG TABLET PO SCH (09:02)
[2016-10-31] MEDS: CHLORHEXIDINE 0.12% ORAL RINSE 60 ML BOTTLE SWISH/SPIT SCH ×2 (09:03→21:29)
--- NOTE | 2016-10-31 10:20 | Cardiology Progress Note ---
Assessment and Plan (1) Renal insufficiency Status: Chronic Current Visit: No (2) Coronary artery disease Status: Chronic Current Visit: Yes Qualifiers: Coronary Disease-Associated Artery/Lesion type: [place] artery [place] vs. transplanted heart: [place] heart Associated angina: without angina Qualified Code(s): I25.10 - Atherosclerotic heart disease of [place] coronary artery without angina pectoris (3) Hypertension Status: Chronic Current Visit: Yes Qualifiers: Hypertension type: essential hypertension Qualified Code(s): I10 - Essential (primary) hypertension (4) Persistent atrial fibrillation Status: Acute Assessment and plan: The patient's atrial fibrillation is persistent. I will resume his beta- [place] hopefully we can get him off the diltiazem continues amiodarone for now. I call and discuss with Dr. Gómez we will add low-dose Eliquis. His creatinine is 2.2 and he is 76 yoa. Hopefully he will convert. Current Visit: Yes Cardiology - PN: Subj Interval history: Mr. Urias remains in atrial fibrillation. His rate is better he has been converted to oral amiodarone. He is also on oral Cardizem I will resume his oral carvedilol. He plans to get up and get around today. He looks quite good. Exam (Progress Note) - Constitutional Vitals: Period Temp Pulse Resp BP Sys/Parsons Pulse Ox Last 24 Hr 97.3 F-99.5 F 65-97 12-20 114-137/64-75 87-93 General appearance: normal weight - Head Head exam: Present: normal inspection - Eye Eye exam: Present: EOMI Pupils: Present: KRISTOFER - Respiratory Respiratory exam: Present: clear to auscultation bilaterally - Cardiovascular Cardiovascular exam: Present: irregular rhythm - GI/Abdominal GI/Abdominal exam: Present: normal bowel sounds - Extremities Exam Extremities exam: Present: normal inspection - Back Exam Back exam: Present: normal inspection - Neurological Exam Neurological exam: Present: alert, oriented X3 - Psychiatric Psychiatric exam: Present: normal affect, depressed Result/EKG - Labs CBC & BMP: 10/31/16 03:20 10/31/16 03:20 Labs: Laboratory Results - last 24 hr 10/30/16 10/30/16 10/30/16 10:58 15:59 20:26 WBC RBC Hgb Hct MCV MCH MCHC RDW Plt Count MPV Neut % (Auto) Lymph % (Auto) [place] % (Auto) Eos % (Auto) Baso % (Auto) Neut # (Auto) Lymph # (Auto) [place] # (Auto) Eos # (Auto) Baso # (Auto) Immature Gran % Nucleated RBC % Immature Gran # Nucleated RBCs # Immature Plt Fraction Sodium Potassium Chloride Carbon Dioxide Anion Gap BUN Creatinine GFR Calculation BUN/Creatinine Ratio Glucose POC Glucose 169 H 171 H 155 H Calculated Osmolality Calcium Magnesium Total Bilirubin Direct Bilirubin Indirect Bilirubin AST ALT Alkaline Phosphatase Total Creatine Kinase CK-MB (CK-2) Troponin I Total Protein Albumin Globulin Albumin/Globulin Ratio 10/31/16 10/31/16 10/31/16 03:20 03:20 09:05 WBC 18.0 H RBC 2.90 L Hgb 9.2 L Hct 26.6 L MCV 91.7 MCH 32 MCHC 34.6 RDW 15.2 Plt Count 139 MPV 13.2 H Neut % (Auto) 83.4 H Lymph % (Auto) 6.1 L [place] % (Auto) 9.6 Eos % (Auto) 0.0 Baso % (Auto) 0.1 Neut # (Auto) 15.0 H Lymph # (Auto) 1.1 L [place] # (Auto) 1.7 H Eos # (Auto) 0.0 Baso # (Auto) 0.0 Immature Gran % 0.8 Nucleated RBC % 0.0 Immature Gran # 0.14 Nucleated RBCs # 0.00 Immature Plt Fraction 0.0 Sodium 140 Potassium 4.1 Chloride 106 Carbon Dioxide 25 Anion Gap 13.1 BUN 69 H Creatinine 2.20 H GFR Calculation 33 BUN/Creatinine Ratio 31.00 H Glucose 142 H POC Glucose 187 H Calculated Osmolality 300.4 Calcium 8.5 Magnesium 2.6 H Total Bilirubin 0.90 Direct Bilirubin 0.210 H Indirect Bilirubin 0.7 AST 15 ALT 17 Alkaline Phosphatase 32 L Total Creatine Kinase 197 D CK-MB (CK-2) 2.5 D Troponin I 1.000 H D Total Protein 5.5 L Albumin 3.3 L Globulin 2.2 L Albumin/Globulin Ratio 1.5 Quality Measures - VTE Contraindication to Pharmacological VTE Prophylaxis: High Risk of Bleeding Specialty Discharge - Follow Up or Referrals
[2016-10-31] MEDS: APIXABAN 2.5 MG TABLET PO SCH ×2 (10:40→21:28)
[2016-10-31] MEDS: CARVEDILOL 6.25 MG TABLET PO SCH ×2 (10:40→21:27)
--- NOTE | 2016-10-31 10:40 | EKG Report ---
Stationary ECG Study [facility] Test Date: 10/31/2016 10:41:17 AM Pat Name: HELLEN LION Department: Room: 275 Gender: M Transmission Rebuilder: NURA : 1940 Requested by: Lei Antoine Order Number: [id number] Reading MD: JULES HACKETT Intervals [place] Rate: 96 P: 999 [place]: 0 QRS: -28 QRSD: 93 T: 64 QT: 343 QTc: 397 Interpretive Statements ATRIAL FIBRILLATION BORDERLINE LEFT AXIS DEVIATION Electronically Signed On 11-02-16 11:37:23 CDT by JULES HACKETT [email or web address]
[2016-10-31] MEDS: ROSUVASTATIN 20 MG TABLET PO SCH (21:27)
[2016-11-01] MEDS: INSULIN REGULAR 100 UNIT/ML SUBCUT SCH ×6 (01:18→21:00)
[2016-11-01 06:24] LABS: Calcium 8.7 MG/DL (8.5-10.1); Magnesium 2.7 MG/DL (1.8-2.4); Osmolality,Calculated 302.3 MOS/KG (273-304); Potassium 4.3 MMOL/L (3.5-5.1)
--- NOTE | 2016-11-01 08:32 | Cardiothoracic Progress Note ---
Cardiothoracic Subjective Interval history: Patient looks and feels better. Vital signs have been stable and he has converted to normal sinus rhythm. He is breathing comfortably. He is ambulating with minimal assistance. We will try to increase his activity according to routine postoperative protocol but overall I think his progress is satisfactory. Exam (Progress Note) - Constitutional Vitals: Period Temp Pulse Resp BP Sys/Parsons Pulse Ox Last 24 Hr 97.7 F-98.7 F 60-96 12-20 112-123/62-76 91-97 Result/EKG - Labs CBC & BMP: 10/31/16 03:20 11/01/16 05:54 Labs: Laboratory Results - last 24 hr 10/31/16 10/31/16 10/31/16 09:05 12:16 12:22 Sodium Potassium Chloride Carbon Dioxide Anion Gap BUN Creatinine GFR Calculation BUN/Creatinine Ratio Glucose POC Glucose 187 H < 20 L* 132 H Calculated Osmolality Calcium Magnesium 10/31/16 11/01/16 11/01/16 15:50 05:54 08:04 Sodium 141 Potassium 4.3 Chloride 108 H Carbon Dioxide 26 Anion Gap 11.3 BUN 70 H Creatinine 2.10 H GFR Calculation 35 BUN/Creatinine Ratio 33.00 H Glucose 113 H POC Glucose 134 H 107 H Calculated Osmolality 302.3 Calcium 8.7 Magnesium 2.7 H Quality Measures - VTE Contraindication to Pharmacological VTE Prophylaxis: High Risk of Bleeding Specialty Discharge - Follow Up or Referrals
--- NOTE | 2016-11-01 08:54 | EKG Report ---
Stationary ECG Study [facility] Test Date: 11/01/2016 7:37:33 AM Pat Name: HELLEN LION Department: Room: 275 Gender: M Household Chores: NURA : 1940 Requested by: Lei Antoine Order Number: [id number] Jaimie MD: JULES HACKETT Intervals [place] Rate: 60 P: 75 [place]: 174 QRS: -27 QRSD: 110 T: 71 QT: 443 QTc: 444 Interpretive Statements SINUS RHYTHM BORDERLINE LEFT AXIS DEVIATION Electronically Signed On 11-02-16 11:48:40 CDT by JULES HACKETT [email or web address]
[2016-11-01] MEDS: PANTOPRAZOLE 40 MG TABLET PO SCH (10:09)
[2016-11-01] MEDS: FUROSEMIDE 20 MG TABLET PO SCH (10:09)
[2016-11-01] MEDS: DILTIAZEM 30 MG TABLET PO SCH ×4 (10:09→20:59)
[2016-11-01] MEDS: AMIODARONE 200 MG TABLET PO SCH ×2 (10:09→20:59)
[2016-11-01] MEDS: DOCUSATE SODIUM 100 MG CAPSULE PO SCH (10:09)
[2016-11-01] MEDS: CHLORHEXIDINE 0.12% ORAL RINSE 60 ML BOTTLE SWISH/SPIT SCH ×2 (10:10→21:00)
[2016-11-01] MEDS: APIXABAN 2.5 MG TABLET PO SCH ×2 (10:10→21:00)
[2016-11-01] MEDS: FERROUS SULFATE 325 MG TABLET PO SCH (10:10)
[2016-11-01] MEDS: CARVEDILOL 6.25 MG TABLET PO SCH ×2 (10:10→21:00)
[2016-11-01] MEDS: ASPIRIN EC 325 MG TABLET PO SCH (10:10)
--- NOTE | 2016-11-01 12:48 | Cardiology Progress Note ---
Assessment and Plan (1) Renal insufficiency Status: Chronic Assessment and plan: He is stable Current Visit: No (2) Coronary artery disease Status: Chronic Assessment and plan: He had a HOLLEY in situ to the LAD saphenous vein graft to ramus intermedius and saphenous vein graft to the obtuse marginal. Current Visit: Yes Qualifiers: Coronary Disease-Associated Artery/Lesion type: [place] artery [place] vs. transplanted heart: [place] heart Associated angina: without angina Qualified Code(s): I25.10 - Atherosclerotic heart disease of [place] coronary artery without angina pectoris (3) Hypertension Status: Chronic Current Visit: Yes Qualifiers: Hypertension type: essential hypertension Qualified Code(s): I10 - Essential (primary) hypertension (4) Persistent atrial fibrillation Status: Resolved Assessment and plan: back in NSR. Current Visit: Yes (5) Postoperative atrial fibrillation Status: Acute Current Visit: Yes Cardiology - PN: Subj Interval history: The patient seems to have made a great amount of progress since yesterday. He feels dramatically better. He has converted back to sinus rhythm. He is currently on low-dose Eliquis. As long as he stable I would recommend continuing this for a few months if no signs or symptoms of bleeding. He is overall doing dramatically better. Exam (Progress Note) - Constitutional Vitals: Period Temp Pulse Resp BP Sys/Parsons Pulse Ox Last 24 Hr 97.1 F-98.2 F 60-65 12-20 112-132/62-77 91-99 General appearance: normal weight - Head Head exam: Present: normal inspection - ENT ENT exam: Present: normal exam - Neck Neck exam: Present: normal inspection - Respiratory Respiratory exam: Present: clear to auscultation bilaterally (Initial some crackles that improve with second inspiratory effort I think this is due to atelectasis have encouraged him to use his incentive spirometer) - Cardiovascular Cardiovascular exam: Present: regular rate and rhythm (Tones are quiet no rub) - GI/Abdominal GI/Abdominal exam: Present: normal bowel sounds - Neurological Exam Neurological exam: Present: alert, oriented X3 - Psychiatric Psychiatric exam: Present: normal affect, normal mood - Skin Skin exam: Present: normal color, warm, dry Result/EKG - Labs CBC & BMP: 10/31/16 03:20 11/01/16 05:54 Labs: Laboratory Results - last 24 hr 10/31/16 11/01/1611/01/17 15:50 05:54 08:04 Sodium 141 Potassium 4.3 Chloride 108 H Carbon Dioxide 26 Anion Gap 11.3 BUN 70 H Creatinine 2.10 H GFR Calculation 35 BUN/Creatinine Ratio 33.00 H Glucose 113 H POC Glucose 134 H 107 H Calculated Osmolality 302.3 Calcium 8.7 Magnesium 2.7 H 11/01/16 11:18 Sodium Potassium Chloride Carbon Dioxide Anion Gap BUN Creatinine GFR Calculation BUN/Creatinine Ratio Glucose POC Glucose 155 H Calculated Osmolality Calcium Magnesium Quality Measures - VTE Contraindication to Pharmacological VTE Prophylaxis: High Risk of Bleeding Specialty Discharge - Follow Up or Referrals
[2016-11-01] MEDS: ZALEPLON 5 MG CAPSULE PO PRN (20:59)
[2016-11-01] MEDS: ROSUVASTATIN 20 MG TABLET PO SCH (20:59)
[2016-11-01] MEDS: oxyCODONE/ACETAMINOPHEN 5-325 MG TABLET PO PRN (21:00)
[2016-11-02] MEDS: INSULIN REGULAR 100 UNIT/ML SUBCUT SCH ×6 (01:06→21:33)
[2016-11-02 05:26] LABS: Basophils % 0.1 % (0.0-0.8); Eosinophils # 0.5 10*3/uL (0.0-0.87); Eosinophils % 4.2 % (0.00-10.9); Hematocrit 28.2 VOL% (42.0-52.0); Hemoglobin 9.5 GM/DL (14.0-18.0); Immature Granulocytes % 0.6 %; Immature Granulocytes Absolute 0.07 #; Lymphocytes # 2.1 10*3/uL (1.4-4.0); Lymphocytes % 18.8 % (21.2-54.2); Mean Corpuscular HGB Conc 33.7 GM/DL (32-36); Mean Corpuscular Hemoglobin 31 PG (27-34); Mean Corpuscular Volume 92.2 FL (87-102); Mean Platelet Volume 12.6 FL (9.6-12.0); Monocytes # 1.4 10*3/uL (0.11-0.8); Monocytes % 12.4 % (1.7-12.7); Neutrophils % 63.9 % (38.7-73.9); Platelet Count 186 T/CUMM (130-400); Red Blood Count 3.06 MC/CUMM (3.8-5.5); Red Cell Distribution Width 14.8 % (9.3-17.3)
[2016-11-02 06:10] LABS: Alanine Aminotransferase 28 U/L (16-61); Alkaline Phosphatase 36 U/L (45-117); Aspartate Amino Transferase 17 U/L (0-37); Bilirubin,Indirect 0.7 MG/DL (0.0-1.0); Blood Urea Nitrogen 70 MG/DL (7-18); Calcium 8.4 MG/DL (8.5-10.1); Glucose 104 MG/DL (74-106); Magnesium 2.6 MG/DL (1.8-2.4); Potassium 4.3 MMOL/L (3.5-5.1); Sodium 143 MMOL/L (136-145); Total Protein 5.5 G/DL (6.4-8.3); Troponin I Only 0.445 NG/ML (0.00-0.045)
--- NOTE | 2016-11-02 06:34 | Cardiothoracic Progress Note ---
Cardiothoracic Subjective Interval history: Patient had a fairly comfortable night. Vital signs have been stable and is breathing comfortably. He has been gradually increasing as activities. Hopefully he will be ready for discharge before long. Exam (Progress Note) - Constitutional Vitals: Period Temp Pulse Resp BP Sys/Parsons Pulse Ox Last 24 Hr 97.1 F-99.3 F 55-66 16-20 98-133/60-77 91-99 Result/EKG - Labs CBC & BMP: 11/02/16 04:15 11/02/16 04:15 Labs: Laboratory Results - last 24 hr 11/01/16 11/01/16 11/01/16 08:04 11:18 16:25 WBC RBC Hgb Hct MCV MCH MCHC RDW Plt Count MPV Neut % (Auto) Lymph % (Auto) [place] % (Auto) Eos % (Auto) Baso % (Auto) Neut # (Auto) Lymph # (Auto) [place] # (Auto) Eos # (Auto) Baso # (Auto) Immature Gran % Nucleated RBC % Immature Gran # Nucleated RBCs # Immature Plt Fraction Sodium Potassium Chloride Carbon Dioxide Anion Gap BUN Creatinine GFR Calculation BUN/Creatinine Ratio Glucose POC Glucose 107 H 155 H 150 H Calculated Osmolality Calcium Magnesium Total Bilirubin Direct Bilirubin Indirect Bilirubin AST ALT Alkaline Phosphatase Total Creatine Kinase CK-MB (CK-2) Troponin I Total Protein Albumin Globulin Albumin/Globulin Ratio 11/02/16 11/02/16 04:15 04:15 WBC 11.0 D RBC 3.06 L Hgb 9.5 L Hct 28.2 L MCV 92.2 MCH 31 MCHC 33.7 RDW 14.8 Plt Count 186 D MPV 12.6 H Neut % (Auto) 63.9 Lymph % (Auto) 18.8 L [place] % (Auto) 12.4 Eos % (Auto) 4.2 Baso % (Auto) 0.1 Neut # (Auto) 7.0 Lymph # (Auto) 2.1 [place] # (Auto) 1.4 H Eos # (Auto) 0.5 Baso # (Auto) 0.0 Immature Gran % 0.6 Nucleated RBC % 0.0 Immature Gran # 0.07 Nucleated RBCs # 0.00 Immature Plt Fraction 0.0 Sodium 143 Potassium 4.3 Chloride 108 H Carbon Dioxide 27 Anion Gap 12.3 BUN 70 H Creatinine 2.20 H GFR Calculation 33 BUN/Creatinine Ratio 31.00 H Glucose 104 POC Glucose Calculated Osmolality 305.0 H Calcium 8.4 L Magnesium 2.6 H Total Bilirubin 0.90 Direct Bilirubin 0.180 Indirect Bilirubin 0.7 AST 17 ALT 28 Alkaline Phosphatase 36 L Total Creatine Kinase 77 D CK-MB (CK-2) 1.1 Troponin I 0.445 H D Total Protein 5.5 L Albumin 3.0 L Globulin 2.5 Albumin/Globulin Ratio 1.2 Quality Measures - VTE Contraindication to Pharmacological VTE Prophylaxis: High Risk of Bleeding Specialty Discharge - Follow Up or Referrals
[2016-11-02] MEDS: AMIODARONE 200 MG TABLET PO SCH ×2 (08:38→21:32)
[2016-11-02] MEDS: ASPIRIN EC 325 MG TABLET PO SCH (08:38)
[2016-11-02] MEDS: DILTIAZEM 30 MG TABLET PO SCH ×2 (08:38→13:02)
[2016-11-02] MEDS: CARVEDILOL 6.25 MG TABLET PO SCH (08:39)
[2016-11-02] MEDS: FERROUS SULFATE 325 MG TABLET PO SCH (08:39)
[2016-11-02] MEDS: APIXABAN 2.5 MG TABLET PO SCH ×2 (08:39→21:31)
[2016-11-02] MEDS: PANTOPRAZOLE 40 MG TABLET PO SCH (08:39)
[2016-11-02] MEDS: FUROSEMIDE 20 MG TABLET PO SCH (08:39)
[2016-11-02] MEDS: DOCUSATE SODIUM 100 MG CAPSULE PO SCH (08:42)
[2016-11-02] MEDS: CHLORHEXIDINE 0.12% ORAL RINSE 60 ML BOTTLE SWISH/SPIT SCH ×2 (08:43→21:38)
--- NOTE | 2016-11-02 08:51 | XRay Report ---
XR chest 2V Date: 11/02/2016 4:00 AM History: Shortness of breath Comparison: 11/02/2016 Technique: PA and lateral chest Findings: The heart is smaller in size with recent median sternotomy. Stable left IJ CVP line. Reduced atelectasis in the lungs which appear more over expanded. No evidence of pneumothorax. Persistent small pleural effusions. Degenerative changes are noted with stable mediastinum. Impression: COPD with reduced atelectasis in patient with recent median sternotomy. Persistent small pleural effusions. PROCEDURE INTERPRETED AT [facility] DEPARTMENT OF RADIOLOGY Final Report Signed by: Dr. Sheila Rowe
--- NOTE | 2016-11-02 14:26 | Cardiology Progress Note ---
Assessment and Plan - Time spent with patient Time spent with patient: Greater than 30 minutes (1) Renal insufficiency Status: Chronic Assessment and plan: Creatinine 2.6 this morning. Avoiding LYUDMILA inhibitor/ARB. Continue to monitor his creatinine daily. Current Visit: No (2) Hypercholesterolemia Status: Chronic Assessment and plan: Starting Crestor 20 mg orally each evening. LDL not at goal (124) Current Visit: No (3) Coronary artery disease Status: Chronic Assessment and plan: Status post revascularization. Progressing nicely with complaints of soreness. Will adjust his pain medicines for better control. Continue aspirin, restarting lipid-lowering agent, beta-[place] if able prior to discharge but favor calcium channel [place] at this point as we transition off IV diltiazem to oral diltiazem. Current Visit: Yes Qualifiers: Coronary Disease-Associated Artery/Lesion type: [place] artery [place] vs. transplanted heart: [place] heart Associated angina: without angina Qualified Code(s): I25.10 - Atherosclerotic heart disease of [place] coronary artery without angina pectoris (4) Hypertension Status: Chronic Assessment and plan: Adjust medications accordingly during hospital stay. Current Visit: Yes Qualifiers: Hypertension type: essential hypertension Qualified Code(s): I10 - Essential (primary) hypertension (5) Atrial fibrillation with RVR Status: Acute Assessment and plan: New diagnosis. IV Amiodarone 24 hours has been initiated. Will start oral Amiodarone this evening, EKG in the morning. Monitor LFTs. Hopefully, patient will convert back to normal sinus rhythm. At this time, only on aspirin 325 mg orally daily. Current Visit: Yes (6) Sleep disorder Status: Chronic Assessment and plan: Dr. Dwyer has been following during the hospital stay. May be a candidate for HST while hospitalized. 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 ZARAGOZA SUMMARY: Mr. Urias, 76WM, was admitted for elective heart surgery. October patient underwent CABG 3 (HOLLEY - LAD, SVG - RI, SVG - OM). He tolerated the procedure well and without complication. Echo October 14, 2016: EF 65%, grade 1 diastolic dysfunction, mild concentric LVH, PAP 24 mmHg assuming RAP 5 mmHg. Patient experienced atrial fibrillation with rapid ventricular response approximately 36 hours post CABG. He was treated with IV Amiodarone and IV Cardizem. NOVEMBER 02, 2016: Patient has been ambulating throughout the hallways and doing well. He is having paroxysms of atrial fibrillation today. He is currently on low-dose Eliquis, may consider increasing to full strength if labs remain stable and reduce Aspirin. Continues on oral Amiodarone. To consolidate his medications, we could discontinue his short acting calcium channel [place] and increase his beta-[place] and I will do this starting in the morning. Avoiding ARB/LYUDMILA due to fear of worsening renal insufficiency. Will further discuss with Dr. Hardwick and await additional recommendations. ASSESSMENT/PLAN: 1. CAD S/P CABG (HOLLEY - LAD, SVG - RI, SVG - OM) - POD 5. Decrease Aspirin as patient is now taking Eliquis. 2. HISTORY OF HYPERTENSION - adjust medications accordingly during hospital stay 3. DYSLIPIDEMIA - LDL 124. Crestor 20 mg orally each evening. 4. CKD, STAGE III - avoiding nephrotoxic agents including ARB/LYUMDILA. 5. ATRIAL FIBRILLATION WITH RVR - rate is controlled though he is still having paroxysms of A. fib. On low-dose Eliquis but may need full strength Eliquis prior to discharge if he does not convert back to normal sinus rhythm. 6. ANEMIA - expected post CABG, stable 7. SLEEP DISORDER - concerning for sleep apnea. Sleep medicine has been involved and has a plan in place Exam (Progress Note) - Constitutional Vitals: Period Temp Pulse Resp BP Sys/Parsons Pulse Ox Last 24 Hr 97.7 F-99.3 F 55-113 16-20 102-133/63-82 91-99 Exam: General: [Appears well with no apparent distress.] [Pleasant and cooperative. ] [Appears comfortable.] HEENT: [PERRL, normocephalic, atraumatic. Mucous membranes moist. No jaundice noted. Conjunctiva moist and clear, sclerae anicteric] Neck: No JVD/HJR, no thyromegaly or lymphadenopathy noted. No carotid bruit appreciated Cardiac: [Irregularly irregular rhythm, controlled rate.] [No obvious murmur noted. Lungs: [Clear to auscultation without accessory muscle use to assist the respiratory pattern.] Not requiring oxygen Abdomen: Soft, bowel sounds normoactive. Nontender and nondistended. No abdominal bruit or thrill noted. No masses noted. Musculoskeletal: No fluid collection. Decreased range of motion is noted. Extremities: No clubbing, cyanosis noted. [ No edema noted.] Upper extremity pulses 2+. Lower extremity pulses 2+. Dressing to left lower extremity dry and intact. Capillary refill less than 3 seconds. Skin: No unusual lesions or rashes. No skin breakdown appreciated. Neuro: Awake, alert and oriented 3. Moves all extremities well without hemiparesis or paralysis. No essential tremor is appreciated. Result/EKG - Labs CBC & BMP: 11/02/16 04:15 11/02/16 04:15 Lab Results: I have reviewed the past 24 hour labs Labs: Laboratory Results - last 24 hr 11/01/16 11/02/16 11/02/16 16:25 04:15 04:15 WBC 11.0 D RBC 3.06 L Hgb 9.5 L Hct 28.2 L MCV 92.2 MCH 31 MCHC 33.7 RDW 14.8 Plt Count 186 D MPV 12.6 H Neut % (Auto) 63.9 Lymph % (Auto) 18.8 L [place] % (Auto) 12.4 Eos % (Auto) 4.2 Baso % (Auto) 0.1 Neut # (Auto) 7.0 Lymph # (Auto) 2.1 [place] # (Auto) 1.4 H Eos # (Auto) 0.5 Baso # (Auto) 0.0 Immature Gran % 0.6 Nucleated RBC % 0.0 Immature Gran # 0.07 Nucleated RBCs # 0.00 Immature Plt Fraction 0.0 Sodium 143 Potassium 4.3 Chloride 108 H Carbon Dioxide 27 Anion Gap 12.3 BUN 70 H Creatinine 2.20 H GFR Calculation 33 BUN/Creatinine Ratio 31.00 H Glucose 104 POC Glucose 150 H Calculated Osmolality 305.0 H Calcium 8.4 L Magnesium 2.6 H Total Bilirubin 0.90 Direct Bilirubin 0.180 Indirect Bilirubin 0.7 AST 17 ALT 28 Alkaline Phosphatase 36 L Total Creatine Kinase 77 D CK-MB (CK-2) 1.1 Troponin I 0.445 H D Total Protein 5.5 L Albumin 3.0 L Globulin 2.5 Albumin/Globulin Ratio 1.2 11/02/16 11/02/16 08:12 11:32 WBC RBC Hgb Hct MCV MCH MCHC RDW Plt Count MPV Neut % (Auto) Lymph % (Auto) [place] % (Auto) Eos % (Auto) Baso % (Auto) Neut # (Auto) Lymph # (Auto) [place] # (Auto) Eos # (Auto) Baso # (Auto) Immature Gran % Nucleated RBC % Immature Gran # Nucleated RBCs # Immature Plt Fraction Sodium Potassium Chloride Carbon Dioxide Anion Gap BUN Creatinine GFR Calculation BUN/Creatinine Ratio Glucose POC Glucose 151 H 122 H Calculated Osmolality Calcium Magnesium Total Bilirubin Direct Bilirubin Indirect Bilirubin AST ALT Alkaline Phosphatase Total Creatine Kinase CK-MB (CK-2) Troponin I Total Protein Albumin Globulin Albumin/Globulin Ratio - Diagnostic Findings Procedure: Chest x-ray: report reviewed by me - EKG EKG results: interpreted by me EKG shows: atrial fibrillation Quality Measures - VTE Contraindication to Pharmacological VTE Prophylaxis: High Risk of Bleeding Specialty Discharge - Follow Up or Referrals
[2016-11-02] MEDS: oxyCODONE/ACETAMINOPHEN 5-325 MG TABLET PO PRN (21:30)
[2016-11-02] MEDS: ROSUVASTATIN 20 MG TABLET PO SCH (21:30)
[2016-11-02] MEDS: CARVEDILOL 12.5 MG TABLET PO SCH (21:31)
[2016-11-02] MEDS: ASCORBIC ACID 500 MG TABLET PO SCH (21:31)
[2016-11-02] MEDS: ZALEPLON 5 MG CAPSULE PO PRN (21:33)
[2016-11-03] MEDS: INSULIN REGULAR 100 UNIT/ML SUBCUT SCH ×5 (00:36→21:14)
[2016-11-03 05:13] LABS: Basophils % 0.2 % (0.0-0.8); Eosinophils # 0.8 10*3/uL (0.0-0.87); Hemoglobin 9.7 GM/DL (14.0-18.0); Immature Granulocytes % 0.6 %; Immature Granulocytes Absolute 0.06 #; Lymphocytes # 2.3 10*3/uL (1.4-4.0); Lymphocytes % 21.3 % (21.2-54.2); Mean Corpuscular HGB Conc 34.6 GM/DL (32-36); Mean Corpuscular Hemoglobin 32 PG (27-34); Mean Corpuscular Volume 91.2 FL (87-102); Mean Platelet Volume 12.2 FL (9.6-12.0); Monocytes # 1.4 10*3/uL (0.11-0.8); Monocytes % 12.8 % (1.7-12.7); Neutrophils # 6.2 10*3/uL (1.4-7.4); Neutrophils % 58.1 % (38.7-73.9); Platelet Count 202 T/CUMM (130-400); Red Blood Count 3.07 MC/CUMM (3.8-5.5); Red Cell Distribution Width 14.8 % (9.3-17.3); White Blood Count 10.7 T/CUMM (4-12)
[2016-11-03 05:39] LABS: Alanine Aminotransferase 36 U/L (16-61); Alkaline Phosphatase 40 U/L (45-117); Aspartate Amino Transferase 21 U/L (0-37); Bilirubin,Indirect 0.6 MG/DL (0.0-1.0); Blood Urea Nitrogen 64 MG/DL (7-18); Calcium 8.1 MG/DL (8.5-10.1); Glucose 106 MG/DL (74-106); Magnesium 2.4 MG/DL (1.8-2.4); Osmolality,Calculated 300.1 MOS/KG (273-304); Potassium 4.3 MMOL/L (3.5-5.1); Sodium 142 MMOL/L (136-145); Total Protein 5.4 G/DL (6.4-8.3); Troponin I Only 0.244 NG/ML (0.00-0.045)
--- NOTE | 2016-11-03 07:11 | EKG Report ---
Stationary ECG Study 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
--- NOTE | 2016-11-03 08:53 | XRay Report ---
XR chest 2V Date: 11/03/2016 4:00 AM History: Shortness of breath Comparison: 11/02/2016 Technique: PA and lateral chest Findings: The heart is normal in size with uncoiling of the aorta. Status post median sternotomy. The lungs are overexpanded with reduced atelectasis at the lung bases. Small pleural effusions. Stable mediastinum and osseous structures. Impression: COPD with reduced atelectasis at the lung bases with recent median sternotomy. Persistent small pleural effusions. PROCEDURE INTERPRETED AT [facility] DEPARTMENT OF RADIOLOGY Final Report Signed by: Dr. Sheila Rowe
--- NOTE | 2016-11-03 08:56 | Cardiothoracic Progress Note ---
Cardiothoracic Subjective Interval history: Patient looks and feels better. He is ambulating without difficulty. Pacing wires have been removed. We will continue to increase his activity according to routine postoperative protocol but I do think he will be ready for discharge in the next day or 2. Exam (Progress Note) - Constitutional Vitals: Period Temp Pulse Resp BP Sys/Parsons Pulse Ox Last 24 Hr 97.8 F-99.4 F 61-89 16-19 87-138/64-80 95-100 Result/EKG - Labs CBC & BMP: 11/03/16 04:50 11/03/16 04:50 Labs: Laboratory Results - last 24 hr 11/02/16 11/02/16 11/02/16 11:32 16:01 19:37 WBC RBC Hgb Hct MCV MCH MCHC RDW Plt Count MPV Neut % (Auto) Lymph % (Auto) [place] % (Auto) Eos % (Auto) Baso % (Auto) Neut # (Auto) Lymph # (Auto) [place] # (Auto) Eos # (Auto) Baso # (Auto) Immature Gran % Nucleated RBC % Immature Gran # Nucleated RBCs # Immature Plt Fraction Sodium Potassium Chloride Carbon Dioxide Anion Gap BUN Creatinine GFR Calculation BUN/Creatinine Ratio Glucose POC Glucose 122 H 139 H 180 H Calculated Osmolality Calcium Magnesium Total Bilirubin Direct Bilirubin Indirect Bilirubin AST ALT Alkaline Phosphatase Total Creatine Kinase CK-MB (CK-2) Troponin I Total Protein Albumin Globulin Albumin/Globulin Ratio 11/03/16 11/03/16 11/03/16 00:34 04:50 04:50 WBC 10.7 RBC 3.07 L Hgb 9.7 L Hct 28.0 L MCV 91.2 MCH 32 MCHC 34.6 RDW 14.8 Plt Count 202 MPV 12.2 H Neut % (Auto) 58.1 Lymph % (Auto) 21.3 [place] % (Auto) 12.8 H Eos % (Auto) 7.0 Baso % (Auto) 0.2 Neut # (Auto) 6.2 Lymph # (Auto) 2.3 [place] # (Auto) 1.4 H Eos # (Auto) 0.8 Baso # (Auto) 0.0 Immature Gran % 0.6 Nucleated RBC % 0.0 Immature Gran # 0.06 Nucleated RBCs # 0.00 Immature Plt Fraction 0.0 Sodium 142 Potassium 4.3 Chloride 108 H Carbon Dioxide 26 Anion Gap 12.3 BUN 64 H Creatinine 2.10 H GFR Calculation 35 BUN/Creatinine Ratio 30.00 H Glucose 106 POC Glucose 133 H Calculated Osmolality 300.1 Calcium 8.1 L Magnesium 2.4 Total Bilirubin 0.80 Direct Bilirubin 0.170 Indirect Bilirubin 0.6 AST 21 ALT 36 Alkaline Phosphatase 40 L Total Creatine Kinase 62 CK-MB (CK-2) < 1.0 Troponin I 0.244 H D Total Protein 5.4 L Albumin 3.0 L Globulin 2.4 Albumin/Globulin Ratio 1.2 11/03/16 07:12 WBC RBC Hgb Hct MCV MCH MCHC RDW Plt Count MPV Neut % (Auto) Lymph % (Auto) [place] % (Auto) Eos % (Auto) Baso % (Auto) Neut # (Auto) Lymph # (Auto) [place] # (Auto) Eos # (Auto) Baso # (Auto) Immature Gran % Nucleated RBC % Immature Gran # Nucleated RBCs # Immature Plt Fraction Sodium Potassium Chloride Carbon Dioxide Anion Gap BUN Creatinine GFR Calculation BUN/Creatinine Ratio Glucose POC Glucose 137 H Calculated Osmolality Calcium Magnesium Total Bilirubin Direct Bilirubin Indirect Bilirubin AST ALT Alkaline Phosphatase Total Creatine Kinase CK-MB (CK-2) Troponin I Total Protein Albumin Globulin Albumin/Globulin Ratio Quality Measures - VTE Contraindication to Pharmacological VTE Prophylaxis: High Risk of Bleeding Specialty Discharge - Follow Up or Referrals
[2016-11-03] MEDS: ASPIRIN EC 81 MG TABLET PO SCH (08:57)
[2016-11-03] MEDS: AMIODARONE 200 MG TABLET PO SCH ×2 (08:57→21:14)
[2016-11-03] MEDS: DOCUSATE SODIUM 100 MG CAPSULE PO SCH (08:57)
[2016-11-03] MEDS: CARVEDILOL 12.5 MG TABLET PO SCH ×2 (08:58→22:27)
[2016-11-03] MEDS: FERROUS SULFATE 325 MG TABLET PO SCH (08:58)
[2016-11-03] MEDS: APIXABAN 2.5 MG TABLET PO SCH ×2 (08:58→21:14)
[2016-11-03] MEDS: FUROSEMIDE 20 MG TABLET PO SCH (08:58)
[2016-11-03] MEDS: CHLORHEXIDINE 0.12% ORAL RINSE 60 ML BOTTLE SWISH/SPIT SCH ×2 (08:58→21:14)
[2016-11-03] MEDS: ASCORBIC ACID 500 MG TABLET PO SCH ×2 (08:58→21:13)
[2016-11-03] MEDS: PANTOPRAZOLE 40 MG TABLET PO SCH (08:58)
--- NOTE | 2016-11-03 12:33 | Physician Query Form ---
CLICK EDIT DOCUMENT TO SELECT QUERY ANSWER --> OK --> SIGN Jeannine Simeon RN Clinical Drain Tile Press Operator W) [phone] (f) [phone] [email or web address]: Make your selection(s) from the choices in EACH section by typing an "x" and enter comments in the comment section. Please use your independent medical judgment in providing your response. This request does not imply that any particular answer is desired or expected. CLINICAL INDICATORS: (Providers should not edit this section) Based on documentation of "Chronic renal insufficiency" "CKD, STAGE III - avoiding nephrotoxic agents including ARB/LYUDMILA" Creatinine from 2.6 to 2.1. GFR form 27 to 35. Treated with NS infusion. Clarify which of the following most accurately represents the patient's renal status: ( ) Acute kidney injury (non-traumatic) ( ) Acute renal failure ( x) Acute renal failure with underlying Chronic Kidney Disease (CKD) - please provide stage below ( ) Acute renal failure with pathological renal lesion ( ) Acute renal failure with necrosis ( ) tubular ( ) medullary ( ) cortical ( ) CKD - please provide stage below ( ) End Stage Renal Disease ( ) Acute interstitial nephritis ( ) Hepatorenal syndrome ( ) Other, please specify: ( ) Clinically unable to determine Chronic Kidney Disease Stages Source: National Kidney Disease Foundation ( ) Stage I (eGFR > or = 90) (x ) Stage II (eGFR 60 - 89) ( ) Stage III (eGFR 30 - 59) ( ) Stage IV (eGFR 15 - 29) ( ) Stage V (eGFR < 15 or dialysis) COMMENTS: PLEASE ALSO DOCUMENT RESPONSE IN PROGRESS NOTES AND/OR DISCHARGE SUMMARY Use of terms such as suspected, likely, or probable (associated with a specific diagnosis that is being evaluated, monitored, or treated as if it exists) are acceptable and can be restated in the discharge summary if not ruled out. MTDD
--- NOTE | 2016-11-03 15:01 | Cardiology Progress Note ---
Assessment and Plan - Time spent with patient Time spent with patient: Greater than 30 minutes (1) Renal insufficiency Status: Chronic Assessment and plan: Creatinine 2.6 this morning. Avoiding LYUDMILA inhibitor/ARB. Continue to monitor his creatinine daily. Current Visit: No (2) Hypercholesterolemia Status: Chronic Assessment and plan: Starting Crestor 20 mg orally each evening. LDL not at goal (124) Current Visit: No (3) Coronary artery disease Status: Chronic Assessment and plan: Status post revascularization. Progressing nicely with complaints of soreness. Will adjust his pain medicines for better control. Continue aspirin, restarting lipid-lowering agent, beta-africa if able prior to discharge but favor calcium channel africa at this point as we transition off IV diltiazem to oral diltiazem. Current Visit: Yes Qualifiers: Coronary Disease-Associated Artery/Lesion type: [place] artery [place] vs. transplanted heart: [place] heart Associated angina: without angina Qualified Code(s): I25.10 - Atherosclerotic heart disease of [place] coronary artery without angina pectoris (4) Hypertension Status: Chronic Assessment and plan: Adjust medications accordingly during hospital stay. Current Visit: Yes Qualifiers: Hypertension type: essential hypertension Qualified Code(s): I10 - Essential (primary) hypertension (5) Atrial fibrillation with RVR Status: Resolved Assessment and plan: New diagnosis. IV Amiodarone 24 hours has been initiated. Will start oral Amiodarone this evening, EKG in the morning. Monitor LFTs. Hopefully, patient will convert back to normal sinus rhythm. At this time, only on aspirin 325 mg orally daily. Current Visit: Yes (6) Sleep disorder Status: Chronic Assessment and plan: Dr. Dwyer has been following during the hospital stay. May be a candidate for HST while hospitalized. Current Visit: Yes Cardiology - PN: Subj Interval history: STONE [employer]TER [employer]AMES: DR. ZARAGOZA SUMMARY: Mr. Urias, 76WM, was admitted for elective heart surgery. October patient underwent CABG 3 (HOLLEY - LAD, SVG - RI, SVG - OM). He tolerated the procedure well and without complication. Echo October 14, 2016: EF 65%, grade 1 diastolic dysfunction, mild concentric LVH, PAP 24 mmHg assuming RAP 5 mmHg. Patient experienced atrial fibrillation with rapid ventricular response approximately 36 hours post CABG. He was treated with IV Amiodarone and IV Cardizem. NOVEMBER 02, 2016: Patient has been ambulating throughout the hallways and doing well. He is having paroxysms of atrial fibrillation today. He is currently on low-dose Eliquis, may consider increasing to full strength if labs remain stable and reduce Aspirin. Continues on oral Amiodarone. To consolidate his medications, we could discontinue his short acting calcium channel africa and increase his beta-africa and I will do this starting in the morning. Avoiding ARB/LYUDMILA due to fear of worsening renal insufficiency. Will further discuss with Dr. Hardwick and await additional recommendations. NOVEMBER 03, 2016: Doing well. He has converted back to normal sinus rhythm today. Continues to use amiodarone 40 mg orally twice daily. His labs are stable and vital signs are well controlled. Hopefully, patient will be eligible for discharge tomorrow. Will further discuss with Dr. Hardwick and await additional recommendations. ASSESSMENT/PLAN: 1. CAD S/P CABG (HOLLEY - LAD, SVG - RI, SVG - OM) - POD 6. Decreased Aspirin as patient is now taking Eliquis. 2. HISTORY OF HYPERTENSION - currently on a beta-africa and avoiding ARB/ LYUDMILA. Adjust medications accordingly during hospital stay 3. DYSLIPIDEMIA - LDL 124. Crestor 20 mg orally each evening. 4. CKD, STAGE III - avoiding nephrotoxic agents including ARB/LYUDMILA. 5. ATRIAL FIBRILLATION WITH RVR -currently in normal sinus rhythm. On low- dose Eliquis but may need full strength Eliquis if he continues to have paroxysms of atrial fibrillation. Hopefully, with Amiodarone, he will remain in normal sinus rhythm. 6. ANEMIA - expected post CABG, stable 7. SLEEP DISORDER - concerning for sleep apnea. Sleep medicine has been involved and has a plan in place Exam (Progress Note) - Constitutional Vitals: Period Temp Pulse Resp BP Sys/Parsons Pulse Ox Last 24 Hr 97.3 F-99.4 F 61-89 16-20 87-138/64-80 96-100 Exam: General: [Appears well with no apparent distress.] [Pleasant and cooperative. ] [Appears comfortable.] HEENT: [PERRL, normocephalic, atraumatic. Mucous membranes moist. No jaundice noted. Conjunctiva moist and clear, sclerae anicteric] Neck: No JVD/HJR, no thyromegaly or lymphadenopathy noted. No carotid bruit appreciated Cardiac: [Regular rate and rhythm without murmur rub or gallop. Sternotomy healing well without dehiscence or drainage. Lungs: [Clear to auscultation without accessory muscle use to assist the respiratory pattern.] Not requiring oxygen Abdomen: Soft, bowel sounds normoactive. Nontender and nondistended. No abdominal bruit or thrill noted. No masses noted. Musculoskeletal: No fluid collection. Decreased range of motion is noted. Extremities: No clubbing, cyanosis noted. [ No edema noted.] Upper extremity pulses 2+. Lower extremity pulses 2+. Dressing to left lower extremity dry and intact. Capillary refill less than 3 seconds. Skin: No unusual lesions or rashes. No skin breakdown appreciated. Neuro: Awake, alert and oriented 3. Moves all extremities well without hemiparesis or paralysis. No essential tremor is appreciated. Result/EKG - Labs CBC & BMP: 11/03/16 04:50 11/03/16 04:50 Lab Results: I have reviewed the past 24 hour labs Labs: Laboratory Results - last 24 hr 11/02/16 11/02/16 11/03/16 16:01 19:37 00:34 WBC RBC Hgb Hct MCV MCH MCHC RDW Plt Count MPV Neut % (Auto) Lymph % (Auto) [place] % (Auto) Eos % (Auto) Baso % (Auto) Neut # (Auto) Lymph # (Auto) [place] # (Auto) Eos # (Auto) Baso # (Auto) Immature Gran % Nucleated RBC % Immature Gran # Nucleated RBCs # Immature Plt Fraction Sodium Potassium Chloride Carbon Dioxide Anion Gap BUN Creatinine GFR Calculation BUN/Creatinine Ratio Glucose POC Glucose 139 H 180 H 133 H Calculated Osmolality Calcium Magnesium Total Bilirubin Direct Bilirubin Indirect Bilirubin AST ALT Alkaline Phosphatase Total Creatine Kinase CK-MB (CK-2) Troponin I Total Protein Albumin Globulin Albumin/Globulin Ratio 11/03/16 11/03/16 11/03/16 04:50 04:50 07:12 WBC 10.7 RBC 3.07 L Hgb 9.7 L Hct 28.0 L MCV 91.2 MCH 32 MCHC 34.6 RDW 14.8 Plt Count 202 MPV 12.2 H Neut % (Auto) 58.1 Lymph % (Auto) 21.3 [place] % (Auto) 12.8 H Eos % (Auto) 7.0 Baso % (Auto) 0.2 Neut # (Auto) 6.2 Lymph # (Auto) 2.3 [place] # (Auto) 1.4 H Eos # (Auto) 0.8 Baso # (Auto) 0.0 Immature Gran % 0.6 Nucleated RBC % 0.0 Immature Gran # 0.06 Nucleated RBCs # 0.00 Immature Plt Fraction 0.0 Sodium 142 Potassium 4.3 Chloride 108 H Carbon Dioxide 26 Anion Gap 12.3 BUN 64 H Creatinine 2.10 H GFR Calculation 35 BUN/Creatinine Ratio 30.00 H Glucose 106 POC Glucose 137 H Calculated Osmolality 300.1 Calcium 8.1 L Magnesium 2.4 Total Bilirubin 0.80 Direct Bilirubin 0.170 Indirect Bilirubin 0.6 AST 21 ALT 36 Alkaline Phosphatase 40 L Total Creatine Kinase 62 CK-MB (CK-2) < 1.0 Troponin I 0.244 H D Total Protein 5.4 L Albumin 3.0 L Globulin 2.4 Albumin/Globulin Ratio 1.2 11/03/16 11:15 WBC RBC Hgb Hct MCV MCH MCHC RDW Plt Count MPV Neut % (Auto) Lymph % (Auto) [place] % (Auto) Eos % (Auto) Baso % (Auto) Neut # (Auto) Lymph # (Auto) [place] # (Auto) Eos # (Auto) Baso # (Auto) Immature Gran % Nucleated RBC % Immature Gran # Nucleated RBCs # Immature Plt Fraction Sodium Potassium Chloride Carbon Dioxide Anion Gap BUN Creatinine GFR Calculation BUN/Creatinine Ratio Glucose POC Glucose 142 H Calculated Osmolality Calcium Magnesium Total Bilirubin Direct Bilirubin Indirect Bilirubin AST ALT Alkaline Phosphatase Total Creatine Kinase CK-MB (CK-2) Troponin I Total Protein Albumin Globulin Albumin/Globulin Ratio - EKG EKG results: interpreted by me EKG shows: sinus rhythm Quality Measures - VTE Contraindication to Pharmacological VTE Prophylaxis: High Risk of Bleeding Specialty Discharge - Follow Up or Referrals
[2016-11-03] MEDS: ROSUVASTATIN 20 MG TABLET PO SCH (21:13)
[2016-11-03] MEDS: oxyCODONE/ACETAMINOPHEN 5-325 MG TABLET PO PRN (22:13)
--- NOTE | 2016-11-04 06:33 | Cardiothoracic Progress Note ---
Cardiothoracic Subjective Interval history: Patient appears to be making a good recovery at this point. Vital signs are stable and he has been breathing comfortably. Renal function has essentially returned to its preoperative level. He is ambulating without assistance. We will continue present therapy but hopefully he will be ready for discharge in the morning. Exam (Progress Note) - Constitutional Vitals: Period Temp Pulse Resp BP Sys/Parsons Pulse Ox Last 24 Hr 97.2 F-99.3 F 60-89 16-20 114-150/67-83 95-99 Result/EKG - Labs CBC & BMP: 11/03/16 04:50 11/03/16 04:50 Labs: Laboratory Results - last 24 hr 11/03/16 11/03/16 11/03/16 07:12 11:15 15:40 POC Glucose 137 H 142 H 119 H 11/03/16 20:13 POC Glucose 189 H Quality Measures - VTE Contraindication to Pharmacological VTE Prophylaxis: High Risk of Bleeding Specialty Discharge - Follow Up or Referrals
[2016-11-04] MEDS: INSULIN REGULAR 100 UNIT/ML SUBCUT SCH ×4 (08:45→21:51)
[2016-11-04] MEDS: oxyCODONE/ACETAMINOPHEN 5-325 MG TABLET PO PRN ×2 (08:47→21:51)
[2016-11-04] MEDS: DOCUSATE SODIUM 100 MG CAPSULE PO SCH (08:48)
[2016-11-04] MEDS: FERROUS SULFATE 325 MG TABLET PO SCH (08:48)
[2016-11-04] MEDS: PANTOPRAZOLE 40 MG TABLET PO SCH (08:48)
[2016-11-04] MEDS: ASCORBIC ACID 500 MG TABLET PO SCH ×2 (08:48→21:51)
[2016-11-04] MEDS: CARVEDILOL 12.5 MG TABLET PO SCH ×2 (08:48→21:51)
[2016-11-04] MEDS: ASPIRIN EC 81 MG TABLET PO SCH (08:48)
[2016-11-04] MEDS: APIXABAN 2.5 MG TABLET PO SCH ×2 (08:48→21:51)
[2016-11-04] MEDS: CHLORHEXIDINE 0.12% ORAL RINSE 60 ML BOTTLE SWISH/SPIT SCH ×2 (08:49→21:52)
[2016-11-04] MEDS: AMIODARONE 200 MG TABLET PO SCH ×2 (08:49→21:51)
[2016-11-04] MEDS: FUROSEMIDE 20 MG TABLET PO SCH (08:49)
--- NOTE | 2016-11-04 11:36 | Cardiology Progress Note ---
Assessment and Plan - Time spent with patient Time spent with patient: Greater than 30 minutes (1) Renal insufficiency Status: Chronic Assessment and plan: Creatinine 2.6 this morning. Avoiding LYUDMILA inhibitor/ARB. Continue to monitor his creatinine daily. Current Visit: No (2) Hypercholesterolemia Status: Chronic Assessment and plan: Starting Crestor 20 mg orally each evening. LDL not at goal (124) Current Visit: No (3) Coronary artery disease Status: Chronic Assessment and plan: Status post revascularization. Progressing nicely with complaints of soreness. Will adjust his pain medicines for better control. Continue aspirin, restarting lipid-lowering agent, beta-africa if able prior to discharge but favor calcium channel [place] at this point as we transition off IV diltiazem to oral diltiazem. Current Visit: Yes Qualifiers: Coronary Disease-Associated Artery/Lesion type: [place] artery [place] vs. transplanted heart: [place] heart Associated angina: without angina Qualified Code(s): I25.10 - Atherosclerotic heart disease of [place] coronary artery without angina pectoris (4) Hypertension Status: Chronic Assessment and plan: Adjust medications accordingly during hospital stay. Current Visit: Yes Qualifiers: Hypertension type: essential hypertension Qualified Code(s): I10 - Essential (primary) hypertension (5) Atrial fibrillation with RVR Status: Resolved Assessment and plan: New diagnosis. IV Amiodarone 24 hours has been initiated. Will start oral Amiodarone this evening, EKG in the morning. Monitor LFTs. Hopefully, patient will convert back to normal sinus rhythm. At this time, only on aspirin 325 mg orally daily. Current Visit: Yes (6) Sleep disorder Status: Chronic Assessment and plan: Dr. Dwyer has been following during the hospital stay. May be a candidate for HST while hospitalized. Current Visit: Yes Cardiology - PN: Subj Interval history: JOCKEY AGENT: DR. ZARAGOZA SUMMARY: Mr. Urias, 76WM, was admitted for elective heart surgery. October patient underwent CABG 3 (HOLLEY - LAD, SVG - RI, SVG - OM). He tolerated the procedure well and without complication. Echo October 14, 2016: EF 65%, grade 1 diastolic dysfunction, mild concentric LVH, PAP 24 mmHg assuming RAP 5 mmHg. Patient experienced atrial fibrillation with rapid ventricular response approximately 36 hours post CABG. He was treated with IV Amiodarone and IV Cardizem. NOVEMBER 02, 2016: Patient has been ambulating throughout the hallways and doing well. He is having paroxysms of atrial fibrillation today. He is currently on low-dose Eliquis, may consider increasing to full strength if labs remain stable and reduce Aspirin. Continues on oral Amiodarone. To consolidate his medications, we could discontinue his short acting calcium channel africa and increase his beta-africa and I will do this starting in the morning. Avoiding ARB/LYUDMILA due to fear of worsening renal insufficiency. Will further discuss with Dr. Hardwick and await additional recommendations. NOVEMBER 03, 2016: Doing well. He has converted back to normal sinus rhythm today. Continues to use amiodarone 40 mg orally twice daily. His labs are stable and vital signs are well controlled. Hopefully, patient will be eligible for discharge tomorrow. Will further discuss with Dr. Hardwick and await additional recommendations. NOVEMBER 04, 2016: Mr. Urias is doing great, POD 7. Vital signs are stable. He has remained in normal sinus rhythm for the past 48 hours. Blood pressure is well controlled. Continue post CABG strengthening protocol. Suspect patient will be discharged home tomorrow. Will further discuss with Dr. Hardwick and await additional recommendations. ASSESSMENT/PLAN: 1. CAD S/P CABG (HOLLEY - LAD, SVG - RI, SVG - OM) - POD 7. Decreased Aspirin as patient is now taking low-dose Eliquis. 2. HISTORY OF HYPERTENSION - currently on a beta-africa and avoiding ARB/ LYUDMILA. Well controlled. 3. DYSLIPIDEMIA - LDL 124. Crestor 20 mg orally each evening. 4. CKD, STAGE III - avoiding nephrotoxic agents including ARB/LYUDMILA. 5. ATRIAL FIBRILLATION WITH RVR - currently in normal sinus rhythm. On low- dose Eliquis but may need full strength Eliquis if he continues to have paroxysms of atrial fibrillation. Hopefully, with Amiodarone, he will remain in normal sinus rhythm. 6. ANEMIA - expected post CABG, stable 7. SLEEP DISORDER - concerning for sleep apnea. Sleep medicine has been involved and has a plan in place Exam (Progress Note) - Constitutional Vitals: Period Temp Pulse Resp BP Sys/Parsons Pulse Ox Last 24 Hr 97.2 F-99.3 F 58-72 16-20 114-150/62-83 95-99 Exam: General: [Appears well with no apparent distress.] [Pleasant and cooperative. ] [Appears comfortable.] HEENT: [PERRL, normocephalic, atraumatic. Mucous membranes moist. No jaundice noted. Conjunctiva moist and clear, sclerae anicteric] Neck: No JVD/HJR, no thyromegaly or lymphadenopathy noted. No carotid bruit appreciated Cardiac: [Regular rate and rhythm without murmur rub or gallop. Sternotomy healing well without dehiscence or drainage. Lungs: [Clear to auscultation without accessory muscle use to assist the respiratory pattern.] Not requiring oxygen Abdomen: Soft, bowel sounds normoactive. Nontender and nondistended. No abdominal bruit or thrill noted. No masses noted. Musculoskeletal: No fluid collection. Decreased range of motion is noted. Extremities: No clubbing, cyanosis noted. [ No edema noted.] Upper extremity pulses 2+. Lower extremity pulses 2+. Dressing to left lower extremity dry and intact. Capillary refill less than 3 seconds. Skin: No unusual lesions or rashes. No skin breakdown appreciated. Neuro: Awake, alert and oriented 3. Moves all extremities well without hemiparesis or paralysis. No essential tremor is appreciated. Result/EKG - Labs CBC & BMP: 11/03/16 04:50 11/03/16 04:50 Lab Results: I have reviewed the past 24 hour labs Labs: Laboratory Results - last 24 hr 11/03/16 11/03/16 11/03/16 11:15 15:40 20:13 POC Glucose 142 H 119 H 189 H 11/04/16 07:08 POC Glucose 170 H - Diagnostic Findings Procedure: Chest x-ray: report reviewed by me - EKG EKG results: interpreted by me EKG shows: sinus rhythm Quality Measures - VTE Contraindication to Pharmacological VTE Prophylaxis: High Risk of Bleeding Specialty Discharge - Follow Up or Referrals Follow up with: Brad Gómez MD [Physician] - 12/01/16 9:45 am
[2016-11-04] MEDS: ROSUVASTATIN 20 MG TABLET PO SCH (21:51)
[2016-11-05 08:03] VITALS: BP 126/60
--- NOTE | 2016-11-05 08:31 | Discharge Summary ---
Hospital Course - Hospital Course Hospital Course: History of present illness: Patient is a 76-year-old man with a known history of coronary disease who presented with symptoms of increasing chest discomfort. Dr. Demarco did cardiac catheterization which revealed critical three- vessel coronary disease and the patient was advised to have bypass surgery. He is admitted for that purpose. Past medical history review of systems social history and family history are documented in his admission notes. Hospital course: Patient was taken to surgery where three-vessel grafting was performed with an internal mammary graft to the anterior descending coronary artery and saphenous vein graft to the obtuse marginal and ramus intermedius coronary arteries. Postoperative course was essentially uncomplicated except for a brief period of atrial fibrillation which was converted with amiodarone. He was discharged home with instructions to return for follow-up in 1 month and discharge medications are listed below. Specialty Discharge - Follow Up or Referrals Follow up with: Brad Gómez MD [Physician] - 12/01/16 9:45 am Discharge Plan - Discharge Data Disposition: Disch To Home/Self Care Condition at Discharge: Stable Discharge Diet: advance to your usual diet Activity: resume usual activities as tolerated Hygiene: no restrictions Weight Bearing at Discharge: full weight bearing Driving: not for - Discharge Medications New Amiodarone Tab [Cordarone Tab] 200 mg PO BID #60 tablet Carvedilol [Coreg] 12.5 mg PO BID #60 tablet Apixaban [Eliquis] 2.5 mg PO BID #60 tablet oxyCODONE/ACETAMINOPHEN 5-325 [Percocet 5-325] 1 tablet PO Q4H PRN tablet PRN Reason: Pain Mild (1-3) Rosuvastatin [Crestor] 20 mg PO BEDTIME #30 tablet Continue Aspirin 325 mg PO AC BREAKFAST #100 tablet Nitroglycerin [Nitroglycerin SL Tab] 1 tablet SL DIRECTED PRN PRN Reason: Chest Pain Minoxidil 2.5 mg PO DAILY PRN PRN Reason: Hypertension Furosemide Tab [Lasix Tab] 20 mg PO DAILY Discontinued amLODIPine [Norvasc] 10 mg PO DAILY Carvedilol 3.125 mg PO BID - Follow Up or Referral Follow Up: Brad Gómez MD [Physician] - 12/01/16 9:45 am - Forms/Instructions Instructions: Heart Healthy Diet (GEN), Coronary Artery Bypass Graft, Orbitread Operator (GEN), Sternal Precautions (GEN) Exam - Constitutional Vitals: Period Temp Pulse Resp BP Sys/Parsons Pulse Ox Last 24 Hr 97.7 F-99.5 F 56-69 16-20 108-131/60-76 90-97 Discharge Results Procedures and tests throughout hospitalization: Pending Orders 10/27/16 09:21 Cryoprecipitate Routine Fresh Frozen Plasma Routine Red Blood Cells Leuko Red Routine Single Donor Platelets Routine Type and Screen Routine Labs on day of discharge: Labs from last 24 hours 11/05/16 11/04/16 11/04/16 07:53 20:01 14:53 POC Glucose 136 H 129 H 140 H 11/04/16 11:15 POC Glucose 152 H DS: Provider Date of admission: 10/27/16 08:43 Primary care physician: Maximo Nunez MD Attending physician on admission: Brad Gómez MD Consults: 10/29/16 08:03 Consult to Physician [CONS] Routine Comment: Consulting Provider: Consult to Specialist Group: Cardiology When should Consulting Provider be notified: Now 10/29/16 09:46 Consult to Cardiac Rehabilitation [CONS] Routine Reason for Cardiac Rehabilitation: Other Consult Comment: Post CABG/heart surgery Consult to [facility], Educator [CONS] Routine Reason for Fur Dressing Supervisor: Diabetes Education Initial Insulin Education Consult Comment: insulin education Consult to Dietitian [CONS] Routine Reason for Dietitian: Dietary Consult Consult Comment: Cardiac, low salt, low cholesterol diet Consult to Physical Therapy [CONS] Routine Reason for Physical Therapy: Other Consult Comment: CV Rehab Discharging clinician: Brad Gómez MD Expected date of discharge: 11/05/16
[2016-11-05] MEDS: INSULIN REGULAR 100 UNIT/ML SUBCUT SCH (09:05)
[2016-11-05] MEDS: ASCORBIC ACID 500 MG TABLET PO SCH (09:40)
[2016-11-05] MEDS: PANTOPRAZOLE 40 MG TABLET PO SCH (09:43)
[2016-11-05] MEDS: FERROUS SULFATE 325 MG TABLET PO SCH (09:44)
[2016-11-05] MEDS: DOCUSATE SODIUM 100 MG CAPSULE PO SCH (09:44)
[2016-11-05] MEDS: ASPIRIN EC 81 MG TABLET PO SCH (09:45)
[2016-11-05] MEDS: APIXABAN 2.5 MG TABLET PO SCH (09:45)
[2016-11-05] MEDS: CARVEDILOL 12.5 MG TABLET PO SCH (09:46)
[2016-11-05] MEDS: AMIODARONE 200 MG TABLET PO SCH (09:49)
--- NOTE | 2016-11-05 11:18 | Cardiology Progress Note ---
Assessment and Plan - Time spent with patient Time spent with patient: Greater than 30 minutes (1) Renal insufficiency Status: Chronic Assessment and plan: Creatinine 2.6 this morning. Avoiding LYUDMILA inhibitor/ARB. Continue to monitor his creatinine daily. (2) Hypercholesterolemia Status: Chronic Assessment and plan: Starting Crestor 20 mg orally each evening. LDL not at goal (124) (3) Coronary artery disease Status: Chronic Assessment and plan: Status post revascularization. Progressing nicely with complaints of soreness. Will adjust his pain medicines for better control. Continue aspirin, restarting lipid-lowering agent, beta-africa if able prior to discharge but favor calcium channel africa at this point as we transition off IV diltiazem to oral diltiazem. Qualifiers: Coronary Disease-Associated Artery/Lesion type: [place] artery [place] vs. transplanted heart: [place] heart Associated angina: without angina Qualified Code(s): I25.10 - Atherosclerotic heart disease of [place] coronary artery without angina pectoris (4) Hypertension Status: Chronic Assessment and plan: Adjust medications accordingly during hospital stay. Qualifiers: Hypertension type: essential hypertension Qualified Code(s): I10 - Essential (primary) hypertension (5) Atrial fibrillation with RVR Status: Resolved Assessment and plan: New diagnosis. IV Amiodarone 24 hours has been initiated. Will start oral Amiodarone this evening, EKG in the morning. Monitor LFTs. Hopefully, patient will convert back to normal sinus rhythm. At this time, only on aspirin 325 mg orally daily. (6) Sleep disorder Status: Chronic Assessment and plan: Dr. Dwyer has been following during the hospital stay. May be a candidate for HST while hospitalized. Cardiology - PN: Subj Interval history: STILL RUNNER: DR. DEMARCO SUMMARY: Mr. Urias, 76WM, was admitted for elective heart surgery. October patient underwent CABG 3 (HOLLEY - LAD, SVG - RI, SVG - OM). He tolerated the procedure well and without complication. Echo October 14, 2016: EF 65%, grade 1 diastolic dysfunction, mild concentric LVH, PAP 24 mmHg assuming RAP 5 mmHg. Patient experienced atrial fibrillation with rapid ventricular response approximately 36 hours post CABG. He was treated with IV Amiodarone and IV Cardizem. NOVEMBER 02, 2016: Patient has been ambulating throughout the hallways and doing well. He is having paroxysms of atrial fibrillation today. He is currently on low-dose Eliquis, may consider increasing to full strength if labs remain stable and reduce Aspirin. Continues on oral Amiodarone. To consolidate his medications, we could discontinue his short acting calcium channel africa and increase his beta-africa and I will do this starting in the morning. Avoiding ARB/LYUDMILA due to fear of worsening renal insufficiency. Will further discuss with Dr. Hardwick and await additional recommendations. NOVEMBER 03, 2016: Doing well. He has converted back to normal sinus rhythm today. Continues to use amiodarone 40 mg orally twice daily. His labs are stable and vital signs are well controlled. Hopefully, patient will be eligible for discharge tomorrow. Will further discuss with Dr. Hardwick and await additional recommendations. NOVEMBER 04, 2016: Mr. Urias is doing great, POD 7. Vital signs are stable. He has remained in normal sinus rhythm for the past 48 hours. Blood pressure is well controlled. Continue post CABG strengthening protocol. Suspect patient will be discharged home tomorrow. Will further discuss with Dr. Hardwick and await additional recommendations. NOVEMBER 05, 2016: Mr. Urias is being discharged today. He is postop day 8 and continues to improve. He has remained in normal sinus rhythm for the past 72 hours. Blood pressure is adequately controlled on low-dose beta-africa. We are avoiding LYUDMILA inhibitor for fear of worsening his renal insufficiency. Also, he is being discharged with Amiodarone 200 mg orally twice daily, Eliquis 2.5 mg orally twice daily, Crestor. Cardiac rehab has seen patient. Patient is being given a follow-up appointment Dr. Demarco in 2 weeks. At that visit the following will be obtained, BMP, magnesium, CBC and EKG. I will further discuss with Dr. Hardwick and await additional recommendations. ASSESSMENT/PLAN: 1. CAD S/P CABG (HOLLEY - LAD, SVG - RI, SVG - OM) - POD 8. Decreased Aspirin as patient is now taking low-dose Eliquis. 2. HISTORY OF HYPERTENSION - currently on a beta-africa and avoiding ARB/ LYUDMILA. Well controlled. 3. DYSLIPIDEMIA - LDL 124. Crestor 20 mg orally each evening. 4. CKD, STAGE III - avoiding nephrotoxic agents including ARB/LYUDMILA. 5. ATRIAL FIBRILLATION WITH RVR - currently in normal sinus rhythm. On low- dose Eliquis but may need full strength Eliquis if he continues to have paroxysms of atrial fibrillation. Hopefully, with Amiodarone, he will remain in normal sinus rhythm. This can be followed outpatient and discontinue Eliquis versus increase. 6. ANEMIA - expected post CABG, stable 7. SLEEP DISORDER - concerning for sleep apnea. Sleep medicine has been involved and has a plan in place Exam (Progress Note) - Constitutional Vitals: Period Temp Pulse Resp BP Sys/Parsons Pulse Ox Last 24 Hr 97.7 F-99.5 F 56-69 16-20 108-131/60-76 90-97 Exam: General: [Appears well with no apparent distress.] [Pleasant and cooperative. ] [Appears comfortable.] HEENT: [PERRL, normocephalic, atraumatic. Mucous membranes moist. No jaundice noted. Conjunctiva moist and clear, sclerae anicteric] Neck: No JVD/HJR, no thyromegaly or lymphadenopathy noted. No carotid bruit appreciated Cardiac: [Regular rate and rhythm without murmur rub or gallop. Sternotomy healing well without dehiscence or drainage. Lungs: [Clear to auscultation without accessory muscle use to assist the respiratory pattern.] Not requiring oxygen Abdomen: Soft, bowel sounds normoactive. Nontender and nondistended. No abdominal bruit or thrill noted. No masses noted. Musculoskeletal: No fluid collection. Decreased range of motion is noted. Extremities: No clubbing, cyanosis noted. [ No edema noted.] Upper extremity pulses 2+. Lower extremity pulses 2+. Dressing to left lower extremity dry and intact. Capillary refill less than 3 seconds. Skin: No unusual lesions or rashes. No skin breakdown appreciated. Neuro: Awake, alert and oriented 3. Moves all extremities well without hemiparesis or paralysis. No essential tremor is appreciated. Result/EKG - Labs CBC & BMP: 11/03/16 04:50 11/03/16 04:50 Lab Results: I have reviewed the past 24 hour labs Labs: Laboratory Results - last 24 hr 11/04/16 11/04/16 11/04/16 11:15 14:53 20:01 POC Glucose 152 H 140 H 129 H 11/05/16 07:53 POC Glucose 136 H - EKG EKG results: interpreted by me EKG shows: sinus rhythm Quality Measures - VTE Contraindication to Pharmacological VTE Prophylaxis: High Risk of Bleeding Specialty Discharge - Follow Up or Referrals Follow up with: Brad Gómez MD [Physician] - 12/01/16 9:45 am Nahid Demacro MD [Physician] - (2 weeks: BMP, Mg, CBC, EKG)
== END 2016-11-05 10:11 | disposition home or self-care (01) | DRG 236 ==
LOC: N.TELES 08:43 → N.CVR 10-28 08:17 → N.TELES 10-29 09:58

== ENCOUNTER 2017-01-01 14:56 | Observation (INO) ==
[2017-01-01 16:15] LABS: Calcium 9.2 MG/DL (8.5-10.1); Osmolality,Calculated 298.5 MOS/KG (273-304); Potassium 4.8 MMOL/L (3.5-5.1)
[2017-01-01 17:39] LABS: Basophils # 0.1 10*3/uL (0.0-0.2); Basophils % 1.5 % (0.0-0.8); Eosinophils # 1.1 10*3/uL (0.0-0.87); Hematocrit 40.2 VOL% (42.0-52.0); Hemoglobin 13.5 GM/DL (14.0-18.0); Immature Granulocytes % 0.3 %; Immature Granulocytes Absolute 0.03 #; Lymphocytes # 1.5 10*3/uL (1.4-4.0); Lymphocytes % 17.3 % (21.2-54.2); Mean Corpuscular HGB Conc 33.6 GM/DL (32-36); Mean Corpuscular Hemoglobin 31 PG (27-34); Mean Corpuscular Volume 91.8 FL (87-102); Mean Platelet Volume 12.3 FL (9.6-12.0); Monocytes # 1.2 10*3/uL (0.11-0.8); Monocytes % 13.7 % (1.7-12.7); Neutrophils # 4.7 10*3/uL (1.4-7.4); Neutrophils % 54.2 % (38.7-73.9); Platelet Count 252 T/CUMM (130-400); Red Blood Count 4.38 MC/CUMM (3.8-5.5); Red Cell Distribution Width 14.4 % (9.3-17.3); White Blood Count 8.6 T/CUMM (4-12)
[2017-01-01 18:28] LABS: Eosinophils 7 % (0-10); Lymphocytes 13 % (20-55); Platelet Estimate Normal; Segmented Neutrophils 71 % (50-85); Total Cells Counted 100
[2017-01-01] MEDS ORDERED: ONDANSETRON 4 MG/2 ML VIAL IV PRN (20:01)
[2017-01-01] MEDS: SERTRALINE 50 MG TABLET PO SCH (21:39)
[2017-01-01] MEDS: SODIUM CHLORIDE 0.9% 1,000 ML IV SCH (21:40)
[2017-01-02 00:30] LABS: Apearance,Urine CLEAR (Clear); Bilirubin,Urine Negative (Negative); Blood, Urine Small mg/dL (Negative); Glucose,Urine (UA) 50 mg/dL (Negative); Ketones,Urine Negative (Negative); Nitrite,Urine Negative (Negative); Protein,Urine 100 MG/DL; RBC,Urine 1 /HPF (0-4); Urine Color Yellow (Yellow); Urine Urobilinogen < 2.0 EU/DL (0.2-1.0); WBC,Urine 1 /HPF (0-6)
[2017-01-02 06:37] LABS: Basophils # 0.1 10*3/uL (0.0-0.2); Basophils % 1.2 % (0.0-0.8); Eosinophils # 1.5 10*3/uL (0.0-0.87); Eosinophils % 15.1 % (0.00-10.9); Hematocrit 34.6 VOL% (42.0-52.0); Hemoglobin 11.6 GM/DL (14.0-18.0); Immature Granulocytes % 0.2 %; Immature Granulocytes Absolute 0.02 #; Lymphocytes # 1.8 10*3/uL (1.4-4.0); Lymphocytes % 18.2 % (21.2-54.2); Mean Corpuscular HGB Conc 33.5 GM/DL (32-36); Mean Corpuscular Hemoglobin 31 PG (27-34); Mean Corpuscular Volume 91.3 FL (87-102); Monocytes # 1.3 10*3/uL (0.11-0.8); Monocytes % 13.6 % (1.7-12.7); Neutrophils % 51.7 % (38.7-73.9); Platelet Count 227 T/CUMM (130-400); Red Blood Count 3.79 MC/CUMM (3.8-5.5); Red Cell Distribution Width 14.5 % (9.3-17.3); White Blood Count 9.7 T/CUMM (4-12)
[2017-01-02 07:13] LABS: Calcium 8.7 MG/DL (8.5-10.1); Osmolality,Calculated 301.3 MOS/KG (273-304); Potassium 4.8 MMOL/L (3.5-5.1)
[2017-01-02 08:04] LABS: Burr Cells 2+; Eosinophils 14 % (0-10); Hypochromasia 1+; Lymphocytes 21 % (20-55); Platelet Estimate Adequate; Segmented Neutrophils 57 % (50-85); Total Cells Counted 100
[2017-01-02] MEDS: PANTOPRAZOLE 40 MG TABLET PO SCH (08:36)
[2017-01-02] MEDS: amLODIPine 10 MG TABLET PO SCH (08:36)
[2017-01-02] MEDS ORDERED: METOPROLOL SUCCINATE XL 25 MG TABLET PO SCH (09:00)
[2017-01-02] MEDS: SODIUM CHLORIDE 0.9% 1,000 ML IV SCH (17:33)
[2017-01-02] MEDS: SERTRALINE 50 MG TABLET PO SCH (20:09)
[2017-01-02] MEDS: ACETAMINOPHEN 325 MG TABLET PO PRN (20:09)
[2017-01-02] MEDS: ZALEPLON 5 MG CAPSULE PO PRN (20:09)
[2017-01-03] MEDS: METOPROLOL SUCCINATE XL 50 MG TABLET PO SCH (08:25)
[2017-01-03] MEDS: PANTOPRAZOLE 40 MG TABLET PO SCH (08:25)
[2017-01-03] MEDS: amLODIPine 10 MG TABLET PO SCH (08:25)
[2017-01-03 11:27] LABS: Calcium 8.5 MG/DL (8.5-10.1); Osmolality,Calculated 300.3 MOS/KG (273-304); Potassium 4.9 MMOL/L (3.5-5.1)
[2017-01-03] MEDS: SODIUM CHLORIDE 0.9% 1,000 ML IV SCH (13:38)
[2017-01-03] MEDS: ZALEPLON 5 MG CAPSULE PO PRN (20:03)
[2017-01-03] MEDS: SERTRALINE 50 MG TABLET PO SCH (20:04)
[2017-01-04 06:05] LABS: Calcium 8.7 MG/DL (8.5-10.1); Potassium 4.9 MMOL/L (3.5-5.1)
[2017-01-04] MEDS: PANTOPRAZOLE 40 MG TABLET PO SCH (08:42)
[2017-01-04] MEDS: METOPROLOL SUCCINATE XL 50 MG TABLET PO SCH (08:42)
[2017-01-04] MEDS: amLODIPine 10 MG TABLET PO SCH (08:42)
[2017-01-04] MEDS: SODIUM CHLORIDE 0.9% 1,000 ML IV SCH (08:45)
[2017-01-04 11:57] VITALS: BP 146/78
[2017-01-04] MEDS ORDERED: PNEUMOCOCCAL VACCINE (13 VALENT) 0.5 ML SYRINGE IM ONE (15:34)
[2017-01-04] MEDS ORDERED: INFLUENZA VIRUS VACCINE 0.5 ML SYRINGE IM ONE (15:35)
[2017-01-04] MEDS: ACETAMINOPHEN 325 MG TABLET PO PRN (15:49)
[2017-01-04] MEDS ORDERED: hydrALAZINE 25 MG TABLET PO SCH (21:00)
== END 2017-01-04 16:15 | disposition home or self-care (01) ==
LOC: N.ED 14:56 → N.EDINP 14:56 → N.4E 21:05
PROVIDERS: ADMIT Hospitalist; ATTEND Hospitalist

== ENCOUNTER 2017-03-04 00:05 | Inpatient (IN) ==
[2017-03-04] MEDS ORDERED: ONDANSETRON 4 MG/2 ML VIAL IV STA (00:31)
[2017-03-04] MEDS ORDERED: ALUM/MAG/SIMETH/LIDO VISC 1:1 30 ML BOTTLE PO STA (00:31)
[2017-03-04] MEDS ORDERED: MORPHINE 2 MG/1 ML SYRINGE IV STA (00:31)
[2017-03-04] MEDS ORDERED: NITROGLYCERIN 2% OINT 1 INCH/GM PACK TOP STA (00:31)
[2017-03-04] MEDS ORDERED: ASPIRIN 325 MG TABLET PO STA (00:31)
[2017-03-04] MEDS ORDERED: ONDANSETRON 4 MG/2 ML VIAL ONE (01:32)
[2017-03-04] MEDS ORDERED: MORPHINE 2 MG/1 ML SYRINGE ONE (01:32)
[2017-03-04] MEDS ORDERED: NITROGLYCERIN 2% OINT 1 INCH/GM PACK TOP ONE (01:32)
[2017-03-04] MEDS ORDERED: ALUM/MAG/SIMETH/LIDO VISC 1:1 30 ML BOTTLE PO ONE (01:33)
[2017-03-04] MEDS ORDERED: ASPIRIN 325 MG TABLET ONE (01:33)
[2017-03-04 01:58] LABS: Basophils # 0.1 10*3/uL (0.0-0.2); Basophils % 0.9 % (0.0-0.8); Eosinophils % 6.9 % (0.00-10.9); Hemoglobin 12.9 GM/DL (14.0-18.0); Immature Granulocytes % 0.6 %; Immature Granulocytes Absolute 0.08 #; Lymphocytes # 1.2 10*3/uL (1.4-4.0); Lymphocytes % 8.6 % (21.2-54.2); Mean Corpuscular HGB Conc 34.9 GM/DL (32-36); Mean Corpuscular Hemoglobin 30 PG (27-34); Mean Corpuscular Volume 87.3 FL (87-102); Mean Platelet Volume 12.7 FL (9.6-12.0); Monocytes # 1.1 10*3/uL (0.11-0.8); Monocytes % 7.7 % (1.7-12.7); Neutrophils # 10.4 10*3/uL (1.4-7.4); Neutrophils % 75.3 % (38.7-73.9); Platelet Count 228 T/CUMM (130-400); Red Blood Count 4.24 MC/CUMM (3.8-5.5); Red Cell Distribution Width 14.7 % (9.3-17.3); White Blood Count 13.8 T/CUMM (4-12)
[2017-03-04 02:05] LABS: PT Patient Result 10.7 SECS
[2017-03-04 02:14] LABS: Albumin 4.1 G/DL (3.4-5.0); Bilirubin,Total 0.6 MG/DL (0.2-1.0); Calcium 9.1 MG/DL (8.5-10.1); Magnesium 2.4 MG/DL (1.8-2.4); Osmolality,Calculated 306.4 MOS/KG (273-304); Potassium 4.1 MMOL/L (3.5-5.1); Total Protein 7.6 G/DL (6.4-8.3)
[2017-03-04] MEDS ORDERED: ACETAMINOPHEN 325 MG TABLET PO PRN (05:27)
[2017-03-04] MEDS ORDERED: ONDANSETRON 4 MG/2 ML VIAL IV PRN (05:27)
[2017-03-04] MEDS ORDERED: SODIUM CHLORIDE 0.9% 1,000 ML IV SCH (05:27)
[2017-03-04] MEDS ORDERED: MORPHINE 2 MG/1 ML SYRINGE IV PRN (05:27)
[2017-03-04] MEDS ORDERED: NITROPRUSSIDE 100 MG in DEXTROSE 5% 246 ML IV SCH (05:27)
[2017-03-04] MEDS ORDERED: NITROPRUSSIDE 50 MG/2 ML VIAL ONE (05:35)
[2017-03-04] MEDS: NITROGLYCERIN 2% OINT 1 INCH/GM PACK TOP SCH ×2 (06:31→11:29)
[2017-03-04] MEDS: ALBUTEROL/IPRATROPIUM 3 ML NEB RESP TX SCH ×2 (07:17→12:24)
[2017-03-04] MEDS ORDERED: ACETYLCYSTEINE 600 MG CAPSULE PO SCH (08:30)
[2017-03-04] MEDS ORDERED: PANTOPRAZOLE 40 MG VIAL IV SCH (09:00)
[2017-03-04] MEDS ORDERED: ceFAZolin 2,000 MG in PREMIX 1 EACH IV ONE (09:32)
[2017-03-04] MEDS ORDERED: HEPARIN 5,000 UNIT/1 ML VIAL ONE (09:35)
[2017-03-04] MEDS ORDERED: VANCOMYCIN 500 MG VIAL ONE (09:35)
[2017-03-04] MEDS ORDERED: HYDROmorphone 2 MG/1 ML VIAL IV PRN ×2 (10:38)
[2017-03-04 14:07] VITALS: BP 141/67
== END 2017-03-04 13:40 | disposition hospice, home (50) | DRG 300 ==
LOC: EDBD → EDUNIT# → N.ED 00:05 → N.EDINP 04:19 → N.CC 04:50
PROVIDERS: ADMIT Surgery; ATTEND Surgery